=== PATIENT | male | born 1950 | race African-American/Black ===

== ENCOUNTER 2017-04-11 18:19 | Emergency (ER) | payer MEDICARE, MEDICAID, OTHER ==
[~2017-04-11 18:19] MED LIST: ISOVUE-370 76%-LOCM 1 ML ONE
[2017-04-11] MEDS ORDERED: Adacel (T-DAP) 0.5 ML VIAL ONE (20:15)
[2017-04-11 20:29] LABS: Bilirubin Negative (Negative); Blood, Urine Negative (Negative); Glucose, Urine (Dipstick) Negative (Negative); Ketone, Urine Negative (Negative); Nitrite Negative (Negative); Protein, Urine (Dipstick) Negative (Neg-Trace); Urobilinogen 0.2 mg/dL (0.2-1.0)
[2017-04-11 20:39] LABS: PTT 28.5 SEC (22.9-36.1); Prothrombin Time 13.3 SEC (12.0-14.7)
[2017-04-11 20:49] LABS: Hematocrit 37.4 % (42.0-52.0); Mean Platelet Volume 6.9 fL (7.4-10.4); Neutrophil 24 % (42-75); White Blood Cell (WBC) Count 6.9 thou/uL (4.8-10.8)
[2017-04-11 20:56] LABS: ALT (SGPT) 20 U/L (8-55); AST (SGOT) 31 U/L (5-34); Alkaline Phosphatase 67 U/L (40-150); Anion Gap 17 mmol/L (10-20); BUN (Urea Nitrogen) 9 mg/dL (8.4-25.7); Calc. Creatinine Clearance 0 mL/min (70-130); Calcium 9.4 mg/dL (7.8-10.44); Carbon Dioxide 23 mmol/L (23-31); Chloride 103 mmol/L (98-107); Estimated GFR-MDRD Greater than 90; Globulin 3.2 g/dL (2.4-3.5); Lipase 12 U/L (8-78); Protein, Total 7.1 g/dL (5.8-8.1)
--- NOTE | 2017-04-11 21:34 | RAD ---
RIGHT HAND TWO VIEWS: 04/11/17 HISTORY: Hand injury. Some minimal arthritic changes of the hand. There are no signs of fracture or dislocation. IMPRESSION: No evidence of fracture. POS: [facility]
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
== END 2017-04-12 00:53 | disposition home or self-care (01) ==
LOC: ERS 18:19
DX: S16.1XXA Strain of muscle, fascia and tendon at neck level, initial encounter (principal); S39.012A Strain of muscle, fascia and tendon of lower back, initial encounter; S60.512A Abrasion of left hand, initial encounter; S60.511A Abrasion of right hand, initial encounter; F10.129 Alcohol abuse with intoxication, unspecified; J44.9 Chronic obstructive pulmonary disease, unspecified; N40.0 Benign prostatic hyperplasia without lower urinary tract symptoms; F17.210 Nicotine dependence, cigarettes, uncomplicated; K21.9 Gastro-esophageal reflux disease without esophagitis; I10 Essential (primary) hypertension; Z23 Encounter for immunization; Y90.6 Blood alcohol level of 120-199 mg/100 ml; V03.99XA Pedestrian with other conveyance injured in collision with car, pick-up truck or van, unspecified whether traffic or nontraffic accident, initial encounter
CPT/HCPCS: 36416; 70450; 71260; 72125; 74177; 80053; 80307; 81003; 83690; 85025; 85610; 85730; 90471; 90715; 96361; 96374; J2270

== ENCOUNTER 2017-10-01 19:44 | Inpatient (IN) | payer MEDICARE, MEDICAID ==
[2017-10-01] MEDS ORDERED: Magnesium Sulfate 2 GM/100 ML BAG ONE (21:35)
[2017-10-01] MEDS ORDERED: Ondansetron PF 4 MG/2 ML Vial IVP PRN (22:24)
[2017-10-01] MEDS ORDERED: Albuterol Sulfate 2.5 mg/3 ml Neb NEB PRN (22:24)
[2017-10-01] MEDS ORDERED: HYDROcodone/Acetaminophen 5/325 mg Tablet PO PRN (22:24)
[2017-10-01] MEDS ORDERED: Acetaminophen 325 MG TAB PO PRN (22:24)
[2017-10-02] MEDS: Sodium Chloride 0.9% 1,000 ML IV SCH ×2 (00:02→08:02)
[2017-10-02 00:12] VITALS: BMI 17.4
--- NOTE | 2017-10-02 01:33 | HP ---
DATE OF ADMISSION: 10/01/2017 CHIEF COMPLAINT: Shortness of breath. HISTORY OF PRESENT ILLNESS: This is a 67-year-old white male with a known history of COPD who presen eliot today complaining of shortness of breath that started 2 days ago associated with some cough and c ongestion and productive sputum. The patient was unable to breathe today as he had been living with his granddaughter. He decided to come to the ER for further evaluation. When patient arrived in the ER, he was acutely hypoxic and was given multiple nebulizer treatments and was sounding very wheezy, so patient is being admitted for further evaluation and treatment of his COPD. He denied having any chest pain, no nausea, no vomiting, no diarrhea, no constipation. He did complain of low grade feve r at home, but otherwise is not exposed to any sick people. He had a flu shot this season. He had a flu shot this season. PAST MEDICAL HISTORY: COPD, GERD. PAST SURGICAL HISTORY: No known surgeries in the past according to him. SOCIAL HISTORY: The patient drinks almost every day, less than 5 drinks per day and denies any illic it drug use. He does smoke every day, half pack a day. ALLERGIES: LISINOPRIL causing angioedema. FAMILY HISTORY: No significant family history of coronary artery disease. HOME MEDICATIONS: 1. Albuterol inhaler. 2. Aspirin 81 mg daily. 3. Atorvastatin 10 mg p.o. daily. 4. Azithromycin. 5. Cefdinir. 6. Fluticasone salmeterol 1 inhalation q.i.d. 7. Atrovent nebulizer. 8. Pantoprazole 40 mg daily. 9. Prednisolone 20 mg daily. REVIEW OF SYSTEMS: All 12 systems are reviewed with the patient thoroughly and found to be negative at this time. The following complete review of systems was negative, unless otherwise mentioned in t he HPI or below: Constitutional: Weight loss or gain, sense of well-being, ability to conduct usual activities, exercise tolerance. Skin/Breast: Rash, itching, changes in hair growth or loss, nail c hanges, breast lumps, tenderness, swelling, nipple discharge. Eyes: Vision, double vision, tearing, blind spots, pain. ENT/Mouth: Headaches (location, time of onset, duration, precipitating factors) , vertigo, lightheadedness, injury. Vision, double vision, tearing, blind spots, pain, nose bleeding, colds, obstruction, discharge, dental difficulties, gingival bleeding, dentures, neck stiffness, valarie n, tenderness, masses in thyroid or other areas. Cardiovascular: Precordial pain, substernal distre ss, palpitations, syncope, dyspnea on exertion, orthopnea, nocturnal paroxysmal dyspnea, edema, cyano sis, hypertension, heart murmurs, varicosities, phlebitis, claudication. Respiratory: Pain, shortne ss of breath, wheezing, stridor, cough, hemoptysis, fever or night sweats. Gastrointestinal: Poor a ppetite, dysphagia, indigestion, abdominal pain, heartburn, eructation, nausea, vomiting, hematemesis , jaundice, constipation, or diarrhea, abnormal stools (trena-colored, tarry, bloody, greasy, foul sme lling), flatulence, hemorrhoids, recent changes in bowel habits. Genitourinary: Urgency, frequency, dysuria, nocturia, hematuria, polyuria, oliguria, unusual (or change in) color of urine, stones, hes itancy, change in size of stream, dribbling, acute retention or incontinence, libido, potency. Muscu loskeletal: Pain, swelling, redness or heat of muscles or joints, limitation, of motion, muscular we akness, atrophy, cramps. Neurologic/Psychiatric: Convulsions, paralyses, tremor, incoordination, pa rasthesias, difficulties with memory of speech, sensory or motor disturbances, or muscular coordinati on (ataxia, tremor), emotional problems, anxiety, depression, previous psychiatric care, unusual perc eptions, hallucinations. Allergy/Immunologic: Skin rash, anemia, bleeding tendency, polydipsia, polyuria, intolerance to heat or cold. PHYSICAL EXAMINATION: VITAL SIGNS: Blood pressure is 131/62, heart rate is 95, respirations 20, saturation 96% on 2 liters . GENERAL: The patient is moderately built, moderately nourished, does not appear to be in acute distr ess at this time. Alert, oriented x3. HEENT: Atraumatic, normocephalic. PERRLA. Extraocular movements were intact. Oral mucosa pink and moist. CARDIOVASCULAR: S1, S2 normal. No murmurs, rubs or gallops. LUNGS: Bilateral air entry was reduced with wheezing noted diffusely and accessory muscles of respir ation was noted. ABDOMEN: Soft, nontender, no guarding, no rebound tenderness. Bowel sounds normal. MUSCULOSKELETAL: No calf tenderness. No pedal edema. No joint tenderness, no joint swelling. SKIN: No cyanosis, no erythema, no rash, no pallor. NEUROLOGIC: Cranial examination II-XII intact. No focal deficits were noted. LABORATORY DATA: WBC is 14.3, hemoglobin is 13.0, hematocrit is 40.7, platelets 264. Sodium is 136, potassium 4.3, chloride is 100, BUN is 10, creatinine is 0.9. ASSESSMENT AND PLAN: 1. Acute chronic obstructive pulmonary disease exacerbation. 2. Acute hypoxic respiratory failure. 3. Hypertension. 4. Hyperlipidemia. 5. Active smoker. 6. History of alcohol abuse. PLAN: 1. Plan is to closely monitor this patient for his COPD exacerbation. We will continue the patient on albuterol nebulizer every 2 hours as needed, and DuoNebs q.4 hours. We will start the patient on m ethylprednisolone 40 mg IV q.6 hours, Solu-Medrol. We will closely monitor. We will continue the pa tient on the Mucinex for mucosal clearance 200 mg twice a day. 2. The patient has elevated white cells, most likely from the chronic steroid use. We will closely monitor to look for any evidence of infection. At this time, we will start the patient on azithromyc in 500 mg p.o. daily prophylactically for COPD infection. 3. Hypertension, well controlled. We will restart the patient's home medications. 4. DVT prophylaxis, Lovenox. I spent 70 minutes with this patient.
[2017-10-02] MEDS: Mometasone/Formoterol 120 PUFF INHALER INH SCH ×4 (07:08→19:46)
[2017-10-02 08:05] LABS: Hemoglobin 11.2 g/dL (14.0-18.0); Mean Corpuscular HGB CONC 31.9 g/dL (32.0-36.0); Mean Corpuscular Hemoglobin 30.1 pg (27.0-31.0); Mean Corpuscular Volume 94.3 fl (80.0-94.0); Mean Platelet Volume 7.1 fL (7.4-10.4); Platelet Count 245 thou/uL (130-400); RBC Distribution Width 12.3 % (11.5-14.5); Red Blood Cell (RBC) Count 3.72 mill/uL (4.70-6.10); White Blood Cell (WBC) Count 19.3 thou/uL (4.8-10.8)
[2017-10-02 08:21] LABS: Anion Gap 12 mmol/L (10-20); BUN (Urea Nitrogen) 11 mg/dL (8.4-25.7); Calc. Creatinine Clearance 61 mL/min (70-130); Calcium 9.3 mg/dL (7.8-10.44); Carbon Dioxide 24 mmol/L (23-31); Chloride 103 mmol/L (98-107); Estimated GFR-MDRD Greater than 90; Glucose 201 mg/dL (80-115); Potassium 3.9 mmol/L (3.5-5.1); Sodium 135 mmol/L (136-145)
[2017-10-02 08:24] LABS: Band 11 % (5-11); Lymphocytes 5 % (21-51); MDiff Complete? YES; Monocytes 3 % (0-10); Neutrophil 81 % (42-75)
[2017-10-02] MEDS: Enoxaparin Sodium 40 MG/0.4 ML SYRINGE SC SCH (08:47)
[2017-10-02] MEDS: Famotidine 20 MG TAB PO SCH ×2 (08:47→20:25)
[2017-10-02] MEDS: Aspirin 81 mg Enteric Coated Tablet PO SCH (08:47)
[2017-10-02] MEDS: Docusate 100 MG CAP PO SCH ×2 (08:47→20:24)
--- NOTE | 2017-10-02 14:18 | PDOC.PN ---
- Subjective Encounter Start Date: 10/02/17 Encounter Start Time: 10:30 Subjective: pt up in bed no complains - Objective Resuscitation Status: Resuscitation Status FULL:Full Resuscitation Vital Signs & Weight: Vital Signs (12 hours) Temp Pulse Pulse Pulse Resp BP Pulse Ox 10/02/17 12:01 98 F 74 16 109/63 98 10/02/17 10:35 87 20 98 10/02/17 10:22 10/02/17 09:28 89 90 10/02/17 08:00 97.5 F L 87 20 98 10/02/17 07:33 97.5 F L 81 16 133/74 100 10/02/17 07:07 79 20 99 10/02/17 04:00 97.7 F 79 18 118/66 99 Pulse Ox Pulse Ox 10/02/17 12:01 10/02/17 10:35 10/02/17 10:22 99 96 10/02/17 09:28 98 98 10/02/17 08:00 10/02/17 07:33 10/02/17 07:07 10/02/17 04:00 Weight Admit Weight 105 lb Weight 105 lb I&O: 10/01/17 10/02/17 10/03/17 06:59 06:59 06:59 Intake Total 180 Balance 180 Result Diagrams: 10/02/17 06:30 10/02/17 06:30 Phys Exam - Physical Examination HEENT: PERRLA Neck: no nodes Respiratory: wheezing present Cardiovascular: RRR, no significant murmur Gastrointestinal: soft, non-tender Musculoskeletal: no edema Dx/Plan - Plan 1)copd exab 2)leukocytosis with bands 3) smoking cessation plan: will continue iv steroids and duonebs, will check respiratory panel. will continue iv abx for now. will start pt on nicotine patch. * . Review of Systems - Review of Systems Eyes: negative: Pain, Vision Change, Conjunctivae Inflammation, Eyelid Inflammation, Redness, Other ENT: negative: Ear Pain, Ear Discharge, Nose Pain, Nose Discharge, Nose Congestion, Mouth Pain, Mouth Swelling, Throat Pain, Throat Swelling, Other Respiratory: Shortness of Breath, Sputum, Wheezing Cardiovascular: negative: chest pain, palpitations, orthopnea, paroxysmal nocturnal dyspnea, edema, light headedness, other Gastrointestinal: negative: Nausea, Vomiting, Abdominal Pain, Diarrhea, Constipation, Melena, Hematochezia, Other Genitourinary: negative: Dysuria, Frequency, Incontinence, Hematuria, Retention , Other Musculoskeletal: negative: Neck Pain, Shoulder Pain, Arm Pain, Back Pain, Hand Pain, Leg Pain, Foot Pain, Other - Medications/Allergies Allergies/Adverse Reactions: Allergies Allergy/AdvReac Type Severity Reaction Status Date / Time lisinopril Allergy Severe Swollen Verified 10/01/17 23:50 Lips Medications: Current Medications Acetaminophen (Tylenol) 650 mg PO Q4H PRN PRN Reason: Headache/Fever or Pain Hydrocodone Bitart/Acetaminophen ([place] 5/325) 1 tab PO Q4H PRN PRN Reason: Moderate Pain (4-6) Albuterol Sulfate (Ventolin) 2.5 mg NEB Q2H PRN PRN Reason: SOB &/or Wheezing Albuterol/Ipratropium (Duoneb) 3 ml NEB [id number] Last Admin: 10/02/17 10:35 Dose: 3 ml Aspirin (Ecotrin) 81 mg PO DAILY [facility] Last Admin: 10/02/17 08:47 Dose: 81 mg Atorvastatin Calcium (Lipitor) 10 mg PO HS [facility] Docusate Sodium (Colace) 100 mg PO BID [facility] Last Admin: 10/02/17 08:47 Dose: 100 mg Enoxaparin Sodium (Lovenox) 40 mg SC 0900 [facility] Last Admin: 10/02/17 08:47 Dose: 40 mg Famotidine (Pepcid) 20 mg PO BID [facility] Last Admin: 10/02/17 08:47 Dose: 20 mg Levofloxacin 500 mg/ Device 100 mls @ 100 mls/hr IVPB Q24HR [facility] Methylprednisolone Sodium Succinate (Solu-Medrol) 40 mg IVP Q6HR [facility] Last Admin: 10/02/17 12:17 Dose: 40 mg Mometasone Furoate/Formoterol Fumar (Dulera 100 Mcg/5 Mcg Inhaler) 1 puff INH QID-RT [facility] Last Admin: 10/02/17 10:37 Dose: Not Given Nicotine (Nicoderm Patch) 21 mg TD DAILY [facility] Ondansetron HCl (Zofran) 4 mg IVP Q6H PRN PRN Reason: Nausea/Vomiting
[2017-10-02] MEDS: Atorvastatin Calcium 10 MG TAB PO SCH (20:25)
[2017-10-03 04:38] LABS: Mean Corpuscular HGB CONC 32.9 g/dL (32.0-36.0); Mean Corpuscular Hemoglobin 30.9 pg (27.0-31.0); Mean Corpuscular Volume 94.1 fl (80.0-94.0); Platelet Count 224 thou/uL (130-400); RBC Distribution Width 12.3 % (11.5-14.5); Red Blood Cell (RBC) Count 3.56 mill/uL (4.70-6.10); White Blood Cell (WBC) Count 20.1 thou/uL (4.8-10.8)
[2017-10-03 05:40] LABS: Band 3 % (5-11); Lymphocytes 4 % (21-51); MDiff Complete? YES; Monocytes 6 % (0-10); Neutrophil 87 % (42-75)
[2017-10-03 05:44] LABS: Anion Gap 8 mmol/L (10-20); BUN (Urea Nitrogen) 15 mg/dL (8.4-25.7); Calc. Creatinine Clearance 64 mL/min (70-130); Calcium 9.4 mg/dL (7.8-10.44); Carbon Dioxide 27 mmol/L (23-31); Chloride 105 mmol/L (98-107); Estimated GFR-MDRD Greater than 90; Glucose 178 mg/dL (80-115); Potassium 4.1 mmol/L (3.5-5.1); Sodium 136 mmol/L (136-145)
[2017-10-03] MEDS: Mometasone/Formoterol 120 PUFF INHALER INH SCH ×4 (07:12→18:09)
[2017-10-03] MEDS ORDERED: Dextrose 5% in Water 1,000 ML IV PRN (08:44)
[2017-10-03] MEDS ORDERED: Dextrose 50% Abboject 50 ML SYRINGE SLOW IVP PRN (08:44)
[2017-10-03] MEDS ORDERED: HumaLOG 300 UNITS/3 ML VIAL SC PRN (08:44)
[2017-10-03] MEDS: Enoxaparin Sodium 40 MG/0.4 ML SYRINGE SC SCH (09:32)
[2017-10-03] MEDS: Famotidine 20 MG TAB PO SCH ×2 (09:33→22:29)
[2017-10-03] MEDS: Nicotine 21 MG PATCH TD SCH (09:33)
[2017-10-03] MEDS: Docusate 100 MG CAP PO SCH ×2 (09:33→22:29)
[2017-10-03] MEDS: Aspirin 81 mg Enteric Coated Tablet PO SCH (09:33)
[2017-10-03] MEDS ORDERED: guaiFENesin 200 MG TAB PO SCH (11:45)
--- NOTE | 2017-10-03 13:29 | PDOC.PN ---
- Subjective Encounter Start Date: 10/03/17 Encounter Start Time: 11:00 Subjective: pt up in bed feels better - Objective Resuscitation Status: Resuscitation Status FULL:Full Resuscitation Vital Signs & Weight: Vital Signs (12 hours) Temp Pulse Resp BP Pulse Ox 10/03/17 11:54 90 16 102/55 L 96 10/03/17 10:56 75 16 100 10/03/17 08:00 97.7 F 74 16 98 10/03/17 07:29 97.7 F 74 16 109/60 98 10/03/17 07:14 99 10/03/17 07:13 74 16 99 10/03/17 07:12 77 16 99 10/03/17 02:34 92 16 Weight Admit Weight 105 lb Weight 105 lb I&O: 10/02/17 10/03/17 10/04/17 06:59 06:59 06:59 Intake Total 1160 240 Output Total 300 Balance 860 240 Result Diagrams: 10/03/17 04:06 10/03/17 04:06 Phys Exam - Physical Examination Neck: no nodes, no JVD, supple, full ROM Respiratory: wheezing present rhonchi present Cardiovascular: RRR, no significant murmur, no rub, gallop, irregular Gastrointestinal: soft, non-tender, no distention, positive bowel sounds Musculoskeletal: no edema Dx/Plan - Plan 1)copd exab 2)leukocytosis with bands 3) smoking cessation plan: will continue iv steroids and duonebs, will check respiratory panel. will continue iv abx for now. will start pt on nicotine patch. Decreased his steroids to bid. viral panel negative. * . Review of Systems - Review of Systems Eyes: negative: Pain, Vision Change, Conjunctivae Inflammation, Eyelid Inflammation, Redness, Other ENT: negative: Ear Pain, Ear Discharge, Nose Pain, Nose Discharge, Nose Congestion, Mouth Pain, Mouth Swelling, Throat Pain, Throat Swelling, Other Respiratory: SOB with Excertion Cardiovascular: negative: chest pain, palpitations, orthopnea, paroxysmal nocturnal dyspnea, edema, light headedness, other Gastrointestinal: negative: Nausea, Vomiting, Abdominal Pain, Diarrhea, Constipation, Melena, Hematochezia, Other Genitourinary: negative: Dysuria, Frequency, Incontinence, Hematuria, Retention , Other Musculoskeletal: negative: Neck Pain, Shoulder Pain, Arm Pain, Back Pain, Hand Pain, Leg Pain, Foot Pain, Other - Medications/Allergies Allergies/Adverse Reactions: Allergies Allergy/AdvReac Type Severity Reaction Status Date / Time lisinopril Allergy Severe Swollen Verified 10/01/17 23:50 Lips Medications: Current Medications Acetaminophen (Tylenol) 650 mg PO Q4H PRN PRN Reason: Headache/Fever or Pain Hydrocodone Bitart/Acetaminophen ([place] 5/325) 1 tab PO Q4H PRN PRN Reason: Moderate Pain (4-6) Albuterol Sulfate (Ventolin) 2.5 mg NEB Q2H PRN PRN Reason: SOB &/or Wheezing Albuterol/Ipratropium (Duoneb) 3 ml NEB [id number] Last Admin: 10/03/17 10:56 Dose: 3 ml Aspirin (Ecotrin) 81 mg PO DAILY [facility] Last Admin: 10/03/17 09:33 Dose: 81 mg Atorvastatin Calcium (Lipitor) 10 mg PO HS [facility] Last Admin: 10/02/17 20:25 Dose: 10 mg Dextrose/Water (Dextrose 50%) 25 gm SLOW IVP PRN PRN PRN Reason: Hypoglycemia Docusate Sodium (Colace) 100 mg PO BID [facility] Last Admin: 10/03/17 09:33 Dose: 100 mg Enoxaparin Sodium (Lovenox) 40 mg SC 0900 [facility] Last Admin: 10/03/17 09:32 Dose: 40 mg Famotidine (Pepcid) 20 mg PO BID [facility] Last Admin: 10/03/17 09:33 Dose: 20 mg Glucagon (Glucagon) 1 mg IM PRN PRN PRN Reason: Hypoglycemia Guaifenesin (Organ-I Nr) 200 mg PO BID [facility] Guaifenesin (Organ-I Nr) 200 mg PO NOW [facility] Stop: 10/03/17 13:45 Levofloxacin 500 mg/ Device 100 mls @ 100 mls/hr IVPB Q24HR [facility] Last Admin: 10/02/17 15:15 Dose: 100 mls Dextrose/Water (D5w) 1,000 mls @ 0 mls/hr IV .Q0M PRN; As Directed PRN Reason: Hypoglycemia Insulin Human Lispro (Humalog) 0 units SC .MILD SLIDING SCALE PRN PRN Reason: Mild Correctional Scale Methylprednisolone Sodium Succinate (Solu-Medrol) 40 mg IVP BID [facility] Last Admin: 10/03/17 09:36 Dose: 40 mg Mometasone Furoate/Formoterol Fumar (Dulera 100 Mcg/5 Mcg Inhaler) 1 puff INH QID-RT [facility] Last Admin: 10/03/17 13:27 Dose: Not Given Nicotine (Nicoderm Patch) 21 mg TD DAILY [facility] Last Admin: 10/03/17 09:33 Dose: 21 mg Ondansetron HCl (Zofran) 4 mg IVP Q6H PRN PRN Reason: Nausea/Vomiting
[2017-10-03] MEDS: Atorvastatin Calcium 10 MG TAB PO SCH (22:29)
[2017-10-03] MEDS: guaiFENesin 200 MG TAB PO SCH (22:30)
[2017-10-04 05:11] LABS: Anion Gap 12 mmol/L (10-20); BUN (Urea Nitrogen) 14 mg/dL (8.4-25.7); Calc. Creatinine Clearance 62 mL/min (70-130); Calcium 9.4 mg/dL (7.8-10.44); Carbon Dioxide 25 mmol/L (23-31); Chloride 105 mmol/L (98-107); Estimated GFR-MDRD Greater than 90; Glucose 127 mg/dL (80-115); Potassium 4.1 mmol/L (3.5-5.1); Sodium 138 mmol/L (136-145)
[2017-10-04 06:05] LABS: Band 5 % (5-11); Hemoglobin 10.6 g/dL (14.0-18.0); Lymphocytes 9 % (21-51); MDiff Complete? YES; Mean Corpuscular HGB CONC 33.7 g/dL (32.0-36.0); Mean Corpuscular Hemoglobin 31.7 pg (27.0-31.0); Mean Platelet Volume 7.1 fL (7.4-10.4); Monocytes 4 % (0-10); Neutrophil 82 % (42-75); Platelet Count 236 thou/uL (130-400); RBC Distribution Width 12.3 % (11.5-14.5); Red Blood Cell (RBC) Count 3.34 mill/uL (4.70-6.10); White Blood Cell (WBC) Count 15.5 thou/uL (4.8-10.8)
[2017-10-04] MEDS: Mometasone/Formoterol 120 PUFF INHALER INH SCH ×3 (07:19→18:54)
[2017-10-04] MEDS: Aspirin 81 mg Enteric Coated Tablet PO SCH (07:45)
[2017-10-04] MEDS: Famotidine 20 MG TAB PO SCH ×2 (07:45→20:39)
[2017-10-04] MEDS: Docusate 100 MG CAP PO SCH ×2 (07:46→20:39)
[2017-10-04] MEDS: Enoxaparin Sodium 40 MG/0.4 ML SYRINGE SC SCH (07:46)
[2017-10-04] MEDS: Nicotine 21 MG PATCH TD SCH (07:47)
[2017-10-04] MEDS: guaiFENesin 200 MG TAB PO SCH ×2 (10:54→20:39)
--- NOTE | 2017-10-04 18:55 | PDOC.PN ---
- Subjective Encounter Start Date: 10/04/17 Encounter Start Time: 09:00 Subjective: pt up in bed feels well today - Objective Resuscitation Status: Resuscitation Status FULL:Full Resuscitation Vital Signs & Weight: Vital Signs (12 hours) Temp Pulse Resp BP Pulse Ox 10/04/17 18:25 73 12 100 10/04/17 15:55 71 16 10/04/17 11:00 69 16 100 10/04/17 09:48 98.0 F 70 20 130/68 100 10/04/17 08:00 98.0 F 73 16 100 10/04/17 07:20 73 16 99 Weight Admit Weight 105 lb Weight 105 lb I&O: 10/03/17 10/04/17 10/05/17 06:59 06:59 06:59 Intake Total 1160 600 Output Total 300 200 Balance 860 600 -200 Result Diagrams: 10/04/17 04:02 10/04/17 04:02 Additional Labs: Accuchecks 10/04/17 10/04/17 10/03/17 16:29 11:14 19:39 POC Glucose 155 H 146 H 175 H Phys Exam - Physical Examination HEENT: PERRLA, moist MMs, sclera anicteric, TM's clear, oral pharynx no lesions , 2+ tonsils Neck: no nodes, no JVD, supple, full ROM Respiratory: wheezing present mild rhonchi Cardiovascular: RRR, no significant murmur, no rub, gallop, irregular Gastrointestinal: soft, non-tender, no distention, positive bowel sounds Musculoskeletal: no edema, pulses present, edema present Dx/Plan - Plan 1)copd exab 2)leukocytosis with bands 3) smoking cessation plan: will continue iv steroids and duonebs, will check respiratory panel. will continue iv abx for now. will start pt on nicotine patch. Decreased his steroids to bid. viral panel negative. 10/04 pt feels well today, will do walk test in am. Possible discharge in am. Leukocytes improving * . Review of Systems - Review of Systems Eyes: negative: Pain, Vision Change, Conjunctivae Inflammation, Eyelid Inflammation, Redness, Other ENT: negative: Ear Pain, Ear Discharge, Nose Pain, Nose Discharge, Nose Congestion, Mouth Pain, Mouth Swelling, Throat Pain, Throat Swelling, Other Respiratory: Shortness of Breath, Wheezing Cardiovascular: negative: chest pain, palpitations, orthopnea, paroxysmal nocturnal dyspnea, edema, light headedness, other Gastrointestinal: negative: Nausea, Vomiting, Abdominal Pain, Diarrhea, Constipation, Melena, Hematochezia, Other - Medications/Allergies Allergies/Adverse Reactions: Allergies Allergy/AdvReac Type Severity Reaction Status Date / Time lisinopril Allergy Severe Swollen Verified 10/01/17 23:50 Lips Medications: Current Medications Acetaminophen (Tylenol) 650 mg PO Q4H PRN PRN Reason: Headache/Fever or Pain Hydrocodone Bitart/Acetaminophen ([place] 5/325) 1 tab PO Q4H PRN PRN Reason: Moderate Pain (4-6) Albuterol Sulfate (Ventolin) 2.5 mg NEB Q2H PRN PRN Reason: SOB &/or Wheezing Albuterol/Ipratropium (Duoneb) 3 ml NEB [id number] [facility] Last Admin: 10/04/17 18:25 Dose: 3 ml Aspirin (Ecotrin) 81 mg PO DAILY [facility] Last Admin: 10/04/17 07:45 Dose: 81 mg Atorvastatin Calcium (Lipitor) 10 mg PO HS [facility] Last Admin: 10/03/17 22:29 Dose: 10 mg Dextrose/Water (Dextrose 50%) 25 gm SLOW IVP PRN PRN PRN Reason: Hypoglycemia Docusate Sodium (Colace) 100 mg PO BID [facility] Last Admin: 10/04/17 07:46 Dose: 100 mg Enoxaparin Sodium (Lovenox) 40 mg SC 0900 [facility] Last Admin: 10/04/17 07:46 Dose: 40 mg Famotidine (Pepcid) 20 mg PO BID [facility] Last Admin: 10/04/17 07:45 Dose: 20 mg Glucagon (Glucagon) 1 mg IM PRN PRN PRN Reason: Hypoglycemia Guaifenesin (Organ-I Nr) 200 mg PO BID [facility] Last Admin: 10/04/17 10:54 Dose: 200 mg Levofloxacin 500 mg/ Device 100 mls @ 100 mls/hr IVPB Q24HR [facility] Last Admin: 10/04/17 14:42 Dose: 100 mls Dextrose/Water (D5w) 1,000 mls @ 0 mls/hr IV .Q0M PRN; As Directed PRN Reason: Hypoglycemia Insulin Human Lispro (Humalog) 0 units SC .MILD SLIDING SCALE PRN PRN Reason: Mild Correctional Scale Methylprednisolone Sodium Succinate (Solu-Medrol) 40 mg IVP BID [facility] Last Admin: 10/04/17 07:47 Dose: 40 mg Mometasone Furoate/Formoterol Fumar (Dulera 100 Mcg/5 Mcg Inhaler) 1 puff INH BID-RT [facility] Last Admin: 10/04/17 18:54 Dose: 1 puff Nicotine (Nicoderm Patch) 21 mg TD DAILY [facility] Last Admin: 10/04/17 07:47 Dose: 21 mg Ondansetron HCl (Zofran) 4 mg IVP Q6H PRN PRN Reason: Nausea/Vomiting
[2017-10-04] MEDS: Atorvastatin Calcium 10 MG TAB PO SCH (20:39)
[2017-10-05 07:12] VITALS: BP 146/76; TEMP 97.8
[2017-10-05] MEDS: Mometasone/Formoterol 120 PUFF INHALER INH SCH (07:24)
[2017-10-05] MEDS: Nicotine 21 MG PATCH TD SCH (07:34)
[2017-10-05] MEDS: Docusate 100 MG CAP PO SCH (07:35)
[2017-10-05] MEDS: Aspirin 81 mg Enteric Coated Tablet PO SCH (07:35)
[2017-10-05] MEDS: Famotidine 20 MG TAB PO SCH (07:35)
[2017-10-05] MEDS: guaiFENesin 200 MG TAB PO SCH (07:36)
[2017-10-05] MEDS: Enoxaparin Sodium 40 MG/0.4 ML SYRINGE SC SCH (07:36)
--- NOTE | 2017-10-05 16:39 | DIS ---
DATE OF ADMISSION: 10/02/2017 DATE OF DISCHARGE: 10/05/2017 CHIEF COMPLAINT: Initially with shortness of breath. DISCHARGE DIAGNOSES: Including, 1. Chronic obstructive pulmonary disease exacerbation. 2. Leukocytosis with bandemia. 3. Acute hypoxic respiratory failure. 4. Smoking. HOSPITAL COURSE: The patient initially presented to the hospital with complaints of shortness of praveen ath. The patient was found to have extensive amount of wheezing bilaterally. Chest x-ray did not in dicate any acute infectious process. The patient initially started on steroids and also was given Le vaquin prophylactically. The patient continued to improve throughout the hospital stay. The patient 's steroids were tapered down. He did have a 6-minute walk test which did not require patient to hav e oxygen at home. Patient will be discharged home. Follow up with PCP as outpatient. DISCHARGE MEDICATIONS: As the followin. Proscar 5 mg p.o. daily. 2. Flomax 0.4 mg p.o. daily. 3. Norvasc 5 mg p.o. daily. 4. Prednisone. 5. Medrol Dosepak. 6. Dulera 1 puff b.i.d. 7. Levaquin 500 mg p.o. daily for 3 days. 8. Ipratropium and albuterol DuoNebs 3 mL q.4 hours. 9. Pepcid 20 mg p.o. b.i.d. PHYSICAL EXAMINATION: VITAL SIGNS: Temperature 97.8, 64, 16, 90% on room air, blood pressure is 146/76. GENERAL: He is awake, alert, oriented x3. CARDIOVASCULAR SYSTEM: S1, S2 present. No murmurs, rubs or gallops. RESPIRATORY: Mild expiratory wheezing still audible; however, improved from prior. ABDOMEN: Soft, nontender. Bowel sounds are present x2. EXTREMITIES: No pitting edema.
--- NOTE | 2017-10-06 20:54 | DIS ---
DATE OF ADMISSION: 10/02/2017 DATE OF DISCHARGE: 10/05/2017 DISCHARGE DIAGNOSES: 1. Chronic obstructive pulmonary disease exacerbation. 2. Leukocytosis. 3. Smoking. 4. Acute hypoxic respiratory failure. HOSPITAL COURSE: The patient is a very pleasant 67-year-old male, who presented to the hospital with complaints of shortness of breath. The patient initially was found to have significant rhonchi and wheezing all over his lungs. Chest x-ray did not show any acute infiltrates. The patient also had r espiratory viral panel checked, which was negative for any viral illnesses. The patient unfortunatel y continues to smoke a pack daily. The patient at this time was treated with oxygen, steroids, and p rophylactic antibiotics. The patient's condition continued to improve throughout the hospital stay. The patient was walked and did not require any oxygen. The patient was discharged home. He will fo llow up with his PCP as outpatient. PHYSICAL EXAMINATION: VITAL SIGNS: Temperature of 97.8, pulse 64, respirations 16, saturation 99% on room air, blood press ure of 146/76. GENERAL: Awake, alert, oriented x3, does not appear in distress. CVS: S1, S2 present. No murmurs, rubs, or gallops. LUNGS: Mild rhonchi all over lungs and mild wheezing. EXTREMITIES: No edema. DISCHARGE MEDICATIONS: The patient's medications are the following: Proscar 5 mg p.o. daily, Flomax 0.4 mg daily, Norvasc 5 mg p.o. daily, Medrol Dosepak, Dulera 1 inhalation b.i.d., Levaquin 500 mg f or 3 days, DuoNeb 3 mL q.4 hour schedule, and Pepcid 20 mg p.o. b.i.d.
== END 2017-10-05 14:44 | disposition home or self-care (01) | DRG 189 ==
LOC: ERS 19:44 → T4-A 20:36
PROVIDERS: ADMIT Emergency Medicine; ATTEND Emergency Medicine
DX: J96.01 Acute respiratory failure with hypoxia (principal); J44.1 Chronic obstructive pulmonary disease with (acute) exacerbation; I10 Essential (primary) hypertension; K21.9 Gastro-esophageal reflux disease without esophagitis; N40.0 Benign prostatic hyperplasia without lower urinary tract symptoms; F17.210 Nicotine dependence, cigarettes, uncomplicated
CPT/HCPCS: 36415; 36416; 80048; 83735; 83880; 85025; 87633; 96374; G8978-GP-CI; G8979-GP-CI; G8980-GP-CI; G8987-GO-CI; G8988-GO-CI; G8989-GO-CI; J1650; J1956; J2920; J3475; J7620

== ENCOUNTER 2018-01-10 23:04 | Observation (INO) | payer MEDICARE, MEDICAID ==
[2018-01-11 00:04] LABS: Troponin I 0.032 ng/mL (< 0.028)
[2018-01-11] MEDS ORDERED: Sodium Chloride 0.45% 1,000 ML IV SCH (02:00)
[2018-01-11 03:04] LABS: Troponin I Less than 0.010 ng/mL (< 0.028)
[2018-01-11 03:32] VITALS: BMI 16.2
[2018-01-11 06:16] LABS: Troponin I Less than 0.010 ng/mL (< 0.028)
[2018-01-11] MEDS ORDERED: Loratadine 10 MG TAB PO PRN (07:22)
[2018-01-11] MEDS ORDERED: Chloraseptic Spray 180 ml Bottle PO PRN (07:22)
[2018-01-11] MEDS ORDERED: Mag-Al 1200 mg/1200 mg/30 ML UDCUP PO PRN (07:22)
[2018-01-11] MEDS ORDERED: Zolpidem Tartrate 5 MG TAB PO PRN (07:22)
[2018-01-11] MEDS ORDERED: cloNIDine 0.1 MG TAB PO PRN (07:22)
[2018-01-11] MEDS ORDERED: Ondansetron ODT 4 MG TAB PO PRN (07:22)
[2018-01-11] MEDS ORDERED: Artificial Tears 18 DROP/0.9 ML EA EYE PRN (07:22)
[2018-01-11] MEDS ORDERED: Senokot 8.6 MG TAB PO PRN (07:22)
[2018-01-11] MEDS ORDERED: HYDROcodone/Acetaminophen 5/325 mg Tablet PO PRN (07:22)
[2018-01-11] MEDS ORDERED: Loperamide HCl 2 MG CAP PO PRN (07:22)
[2018-01-11] MEDS ORDERED: hydrALAZINE 20 MG/ML VIAL SLOW IVP PRN (07:22)
[2018-01-11] MEDS ORDERED: Ondansetron HCl/PF 4 MG/2 ML Vial IVP PRN (07:22)
[2018-01-11] MEDS ORDERED: Milk Of Magnesia 30 ML UDCUP PO PRN (07:22)
[2018-01-11] MEDS ORDERED: Eucerin (Mineral Oil/Petrolatum,White) 30 gm Jar TOP PRN (07:22)
[2018-01-11] MEDS ORDERED: Acetaminophen 325 MG TAB PO PRN (07:22)
[2018-01-11] MEDS ORDERED: Diabetic Tussin 200 MG/10 ML UDCUP PO PRN (07:22)
[2018-01-11] MEDS ORDERED: Sodium Chloride 0.65% Nasal 44 ML BOT EA NARE PRN (07:22)
[2018-01-11] MEDS: Tamsulosin HCl 0.4 MG CAP PO SCH (07:59)
[2018-01-11] MEDS: Finasteride 5 MG TAB PO SCH (07:59)
[2018-01-11] MEDS: Famotidine 20 MG TAB PO SCH ×2 (07:59→21:58)
[2018-01-11] MEDS: Amlodipine 5 MG TAB PO SCH (07:59)
[2018-01-11] MEDS: guaiFENesin ER 600 MG TAB PO SCH ×2 (08:00→21:58)
[2018-01-11] MEDS ORDERED: predniSONE 20 MG TAB PO SCH (08:00)
--- NOTE | 2018-01-11 12:12 | HP ---
PRIMARY CARE PHYSICIAN: Brayan Dykes M.D. DATE OF ADMISSION: 01/11/2018 REASON FOR ADMISSION: Transfer from [facility] for COPD exacerbation. HISTORY OF PRESENT ILLNESS: A 67-year-old -La[place] male, who presented to the emergency room at [facility] with the complaint of increasing shortness of breath. Before this visit, the patient had 2 more visits this month on 12/27/2017 and 01/02/2018 for increasing shortness of breath. He was hav ing cough productive of sputum. Both time he was given prednisone without any significant improvemen t. Yesterday night, he went to [facility] again for increasing shortness of breath. He w as using his nebulizer machine and medicine at home without any significant relief. Even though he i s feeling shortness of breath, he continued to smoke. At [facility], he was tachypneic, l ow grade fever, and he was appeared mild respiratory distress. Over there, he was given Solu-Medrol 125 mg and albuterol nebulization and subsequently he was transferred to our emergency room for furth er evaluation. In our Emergency Room, he was given Levaquin 750 mg, aspirin and DuoNeb therapy and dafne best was admitted as observation to the observation floor. This morning when I saw around 7, at that ti me, patient was on room air, he was able to talk in full sentences, he was feeling much better. He d id not have any further fever. He was not having any accessory muscles of respiration in use. He de nies any hemoptysis. He denies any pleurisy. He denies any UTI symptoms. He denies any constipatio n, diarrhea. He denies any abdominal pain. He still smokes cigarette even though he is experiencing shortness of breath. REVIEW OF SYSTEMS: The following complete review of systems was negative, unless otherwise mentioned in the HPI or below: Constitutional: Weight loss or gain, ability to conduct usual activities. Skin: Rash, itching. Eyes: Double vision, pain. ENT/Mouth: Nose bleeding, neck stiffness, pain, tenderness. Cardiovascular: Palpitations, dyspnea on exertion, orthopnea. Respiratory: Shortness of breath, wheezing, cough, hemoptysis, fever or night sweats. Gastrointestinal: Poor appetite, abdominal pain, heartburn, nausea, vomiting, constipation, or diarr hea. Genitourinary: Urgency, frequency, dysuria, nocturia. Musculoskeletal: Pain, swelling. Neurologic/Psychiatric: Anxiety, depression. Allergy/Immunologic: Skin rash, bleeding tendency. Please see my HPI for pertinent positive and negative. All other review of system reviewed and negat mickey except as mentioned in the HPI. PAST MEDICAL HISTORY: COPD, protein calorie malnutrition, moderate gastroesophageal reflux disease, benign enlargement of prostate, tobacco abuse disorder, and hypertension. PAST SURGICAL HISTORY: Patient denies any previous surgical history. SOCIAL HISTORY: The patient drinks alcohol socially. He smokes half pack per day. He denies any ot her illicit drug abuse. He lives with his daughter. FAMILY HISTORY: No significant family history of coronary artery disease, stroke, or cancer. ALLERGIES: LISINOPRIL causing angioedema. CURRENT HOME MEDICATIONS: Flomax 0.4 mg p.o. daily, amlodipine 5 mg p.o. daily, Proscar 5 mg p.o. da scott, tramadol 50 mg q.8 hourly p.r.n., and prednisone recently prescribed 60 mg daily. EMERGENCY ROOM COURSE: Patient was given methylprednisolone 125 mg, albuterol nebulization, Levaquin 750 mg, DuoNeb therapy and aspirin in both the emergency room before admission. PHYSICAL EXAMINATION: VITAL SIGNS: On arrival, blood pressure 106/67, pulse 94, respiratory rate 22, temperature 99.7, sat uration 100% on 2 liter oxygen, weight 47.1 kilograms. GENERAL: Patient is currently alert, awake, on room air. No obvious acute distress, emaciated, and cachectic. HEENT: Head: Normocephalic, atraumatic. Eyes: Pupils round, reactive to light. Extraocular muscl e intact. ENT: Oropharynx within normal limits. Moist mucous membranes. No oral lesion, no pharyn geal erythema, no exudate. NECK: Supple, no JVD, no thyromegaly, no carotid bruit, no jugular venous distention. LUNGS: Air entry reduced on both sides. No accessory muscles of respiration in use. No obvious rho nchi or rales. CARDIAC: S1 and S2 regular. No murmur, no gallop, no rub. ABDOMEN: Soft, bowel sounds present, nontender, nondistended. No organomegaly, no mass, no suprapub ic tenderness. BACK: Unremarkable, no CVA tenderness. EXTREMITIES: Upper extremity passive movement of all joints are normal. Lower extremities: No nate a. Good peripheral pulsation. SKIN: No skin rash. HEMATOLOGICAL: No lymphadenopathy. PSYCHIATRIC: Normal affect. SIGNIFICANT LABORATORY DATA: CBC: WBC 10.8, hemoglobin 11.1, platelet 224 with 5 bands. ABG: pH 7 .46, CO2 of 44.0, O2 of 57.0, bicarbonate 30.8, saturation 88%. BMP shows sodium 139, potassium 3.6, chloride 102, carbon dioxide 29, BUN 11, creatinine 0.83. Lactic acid 0.9, calcium 9.3. LFT: AST 14, ALT 10, alkaline phosphatase 63, albumin 3.5. First troponin negative, second troponin indetermi nant, and the subsequent 2 troponin negative. A chest x-ray consistent with emphysematous changes. ASSESSMENT: 1. Chronic obstructive pulmonary disease exacerbation, mild to moderate, improving. 2. Mild hypoxia on admission appears to be resolved. 3. Elevated troponin, likely due to demand ischemia. 4. Ongoing tobacco abuse disorder. 5. Anemia normocytic, normochromic. 6. Chronic hypertension. 7. Gastroesophageal reflux disease. 8. Benign enlargement of prostate. 9. Protein calorie malnutrition, moderate. PLAN: 1. Observation to telemetry floor. 2. Serial cardiac enzymes negative x3. Only one troponin was slightly abnormal and he does not have any chest pain, does not have any EKG changes. No need of further investigation, this is likely due to demand ischemia. 3. We will continue Solu-Medrol 40 mg IV q.6 hourly, empiric antibiotic therapy, Levaquin 500 mg maria elena ly, DuoNeb q.4 hourly, and Dulera two puff inhalation b.i.d. 4. We will reevaluate him tomorrow. 5. We will resume selected home medication including amlodipine 5 mg p.o. daily, Pepcid 20 mg p.o. b .i.d., Proscar 5 mg p.o. daily, Flomax 0.4 mg p.o. daily. 6. Smoking cessation counseling given. Healthy lifestyle measures discussed with the patient. We w ill also provide nutritional supplement with Ensure. 7. DVT prophylaxis not needed because we are expecting discharge in 24 hours. 8. Gastrointestinal prophylaxis. Patient is already on Pepcid therapy. 9. Code status: The patient is FULL CODE. The patient's daughter is surrogate decision maker. 10. Disposition plan based on clinical course, likely tomorrow within 24 hours. Plan of care discus sed with the patient in detail.
[2018-01-11] MEDS: Mometasone/Formoterol 120 PUFF INHALER INH SCH (18:35)
[2018-01-12 05:23] LABS: #Lymphocytes 0.5 thou/uL (1.20-3.40); #Monocytes 0.4 thou/uL (0.11-0.59); %Eosinophils 0.1 % (0.0-10.0); %Lymphocytes 3.6 % (21.0-51.0); %Monocytes 2.9 % (0.0-10.0); %Neutrophils 93.4 % (42.0-75.0); Mean Corpuscular HGB CONC 32.7 g/dL (32.0-36.0); Mean Corpuscular Hemoglobin 30.4 pg (27.0-31.0); Mean Platelet Volume 7.2 fL (7.4-10.4); Platelet Count 203 thou/uL (130-400); RBC Distribution Width 13.7 % (11.5-14.5); Red Blood Cell (RBC) Count 3.61 mill/uL (4.70-6.10)
[2018-01-12 05:53] LABS: ALT (SGPT) 7 U/L (8-55); AST (SGOT) 11 U/L (5-34); Albumin 3.5 g/dL (3.4-4.8); Alkaline Phosphatase 72 U/L (40-150); Anion Gap 12 mmol/L (10-20); BUN (Urea Nitrogen) 17 mg/dL (8.4-25.7); Bilirubin, Total 0.7 mg/dL (0.2-1.2); Calc. Creatinine Clearance 57 mL/min (70-130); Calcium 9.4 mg/dL (7.8-10.44); Carbon Dioxide 27 mmol/L (23-31); Chloride 102 mmol/L (98-107); Estimated GFR-MDRD Greater than 90; Globulin 2.6 g/dL (2.4-3.5); Glucose 161 mg/dL (80-115); Potassium 4.1 mmol/L (3.5-5.1); Protein, Total 6.1 g/dL (5.8-8.1); Sodium 137 mmol/L (136-145)
[2018-01-12] MEDS: Mometasone/Formoterol 120 PUFF INHALER INH SCH (06:58)
[2018-01-12 08:01] VITALS: BP 127/59; TEMP 97.7
[2018-01-12] MEDS: Tamsulosin HCl 0.4 MG CAP PO SCH (08:29)
[2018-01-12] MEDS: Finasteride 5 MG TAB PO SCH (08:29)
[2018-01-12] MEDS: Amlodipine 5 MG TAB PO SCH (08:29)
[2018-01-12] MEDS: guaiFENesin ER 600 MG TAB PO SCH (08:29)
[2018-01-12] MEDS: Famotidine 20 MG TAB PO SCH (08:29)
--- NOTE | 2018-01-12 10:58 | PDOC.PN ---
- Subjective Encounter Start Date: 01/12/18 Encounter Start Time: 08:00 Patient seen and examined. No new complaints. No overnight events - Objective Resuscitation Status: Resuscitation Status FULL:Full Resuscitation MAR Reviewed: Yes Vital Signs & Weight: Vital Signs (12 hours) Temp Pulse Resp BP BP Pulse Ox 01/12/18 08:29 70 01/12/18 08:00 97.7 F 70 15 127/59 L 95 01/12/18 07:56 98.3 F 76 20 01/12/18 06:57 76 20 96 01/12/18 04:15 72 18 125/57 L 97 01/12/18 02:23 80 12 95 01/11/18 23:36 98.3 F 82 15 117/58 L 98 Weight Weight 100 lb 11.2 oz I&O: 01/11/18 01/12/18 01/13/18 06:59 06:59 06:59 Intake Total 185 940 Output Total 425 400 200 Balance -240 540 -200 Result Diagrams: 01/12/18 04:24 01/12/18 04:24 EKG Reviewed by me: Yes (nsr) Phys Exam - Physical Examination Constitutional: NAD HEENT: PERRLA, moist MMs, sclera anicteric, oral pharynx no lesions Neck: no JVD, supple Respiratory: no wheezing, no rales, no rhonchi Cardiovascular: RRR, no significant murmur, no rub Gastrointestinal: soft, non-tender, no distention, positive bowel sounds Musculoskeletal: no edema, pulses present Neurological: non-focal, normal sensation, moves all 4 limbs Lymphatic: no nodes Psychiatric: normal affect, A&O x 3 Skin: no rash, normal turgor Dx/Plan (1) Acute exacerbation of chronic obstructive pulmonary disease (COPD) Code(s): J44.1 - CHRONIC OBSTRUCTIVE PULMONARY DISEASE W (ACUTE) EXACERBATION Status: Acute Comment: (2) Acute respiratory failure with hypoxemia Code(s): J96.01 - ACUTE RESPIRATORY FAILURE WITH HYPOXIA Status: Resolved Comment: (3) Demand ischemia of myocardium Code(s): I24.8 - OTHER FORMS OF ACUTE ISCHEMIC HEART DISEASE Status: Resolved (4) Non-compliance Code(s): Z91.19 - PATIENT'S NONCOMPLIANCE W OTH MEDICAL TREATMENT AND REGIMEN Status: Chronic (5) Protein-calorie malnutrition, moderate Code(s): E44.0 - MODERATE PROTEIN-CALORIE MALNUTRITION Status: Chronic (6) Tobacco abuse disorder Code(s): Z72.0 - TOBACCO USE Status: Chronic - Plan cont current plan of care, continue antibiotics, respiratory therapy * medication reviewed as below * symptomatic treatment * stable for discharge * see discharge radha. Review of Systems - Review of Systems Eyes: negative: Pain, Vision Change, Conjunctivae Inflammation, Eyelid Inflammation, Redness, Other ENT: negative: Ear Pain, Ear Discharge, Nose Pain, Nose Discharge, Nose Congestion, Mouth Pain, Mouth Swelling, Throat Pain, Throat Swelling, Other Respiratory: negative: Cough, Dry, Shortness of Breath, Hemoptysis, SOB with Excertion, Pleuritic Pain, Sputum, Wheezing Cardiovascular: negative: chest pain, palpitations, orthopnea, paroxysmal nocturnal dyspnea, edema, light headedness, other Gastrointestinal: negative: Nausea, Vomiting, Abdominal Pain, Diarrhea, Constipation, Melena, Hematochezia, Other Genitourinary: negative: Dysuria, Frequency, Incontinence, Hematuria, Retention , Other Musculoskeletal: negative: Neck Pain, Shoulder Pain, Arm Pain, Back Pain, Hand Pain, Leg Pain, Foot Pain, Other Skin: negative: Rash, Lesions, Todd, Bruising, Other - Medications/Allergies Allergies/Adverse Reactions: Allergies Allergy/AdvReac Type Severity Reaction Status Date / Time lisinopril Allergy Severe Swollen Verified 10/01/17 23:50 Lips
--- NOTE | 2018-01-12 13:19 | DIS ---
PRIMARY CARE PHYSICIAN: Brayan Dykes M.D. DATE OF ADMISSION: 01/11/2018 DATE OF DISCHARGE: 01/12/2018 DISCHARGE DISPOSITION: Home. PRIMARY DISCHARGE DIAGNOSIS: 1. Chronic obstructive pulmonary disease exacerbation, controlled. 2. Mild hypoxic respiratory failure on admission, resolved. 3. Demand ischemia of myocardium. SECONDARY DISCHARGE DIAGNOSES: Tobacco abuse disorder, moderate protein calorie malnutrition noncomp liance with treatment, chronic obstructive pulmonary disease, protein calorie malnutrition. PRIMARY PROCEDURE/OPERATION: None. RADIOLOGICAL INVESTIGATION: Chest x-ray consistent with COPD. SIGNIFICANT LABORATORY DATA: WBC 15.0, hemoglobin 11.0, platelet 203. Sodium 137, potassium 4.1, ch loride 102, BUN 17, creatinine 0.83, calcium 9.4. Liver enzymes normal. Cardiac enzymes negative x2 and one time indeterminant troponin. DISCHARGE MEDICATIONS: Albuterol inhaler q.8 hourly p.r.n., Norvasc 5 mg p.o. daily, Pepcid 20 mg p. o. b.i.d., Proscar 5 mg p.o. daily, Mucinex 600 mg twice daily for 7 days, DuoNeb q.4 hourly and p.r. n., Levaquin 500 mg p.o. daily for 5 days, Dulera 2 puffs inhalation b.i.d., prednisone 20 mg p.o. b. i.d. for 5 days, and Flomax 0.4 mg p.o. daily. CONTRAINDICATIONS: None. CODE STATUS: FULL CODE. INPATIENT CONSULTANTS: None. ALLERGIES: LISINOPRIL. DISCHARGE PLAN: Post hospital, the patient will follow up with primary care physician in 1 week. HOSPITAL COURSE: A 67-year-old male, who has severe COPD as well as ongoing tobacco abuse disorder a nd lately he required a couple of emergency room visit for cough and shortness of breath. This time, he presented to emergency room with similar complaint with increasing dyspnea and cough, and he was not feeling better with outpatient treatment and that is why patient was observed on medical floor. We treated him with the Solu-Medrol, DuoNeb, empiric antibiotic therapy with Levaquin as well as Dule ra and Mucinex. The next day, the patient has significant improvement. He was on room air. He was tolerating p.o. well. He was able to talk in full sentences. He was ambulatory and he was saturatin g normal after ambulation. During this admission, we prescribed Levaquin and prednisone for another 5 days. Rest of medication he will continue. We provided patient counseling to avoid smoking. Healthy lifestyle measures discu ssed with the patient. Patient is also given instruction to try oral supplement for his malnutrition . The patient is medically stable for discharge. All new medication prescription sent to his pharmacy.
== END 2018-01-12 10:51 | disposition home or self-care (01) ==
LOC: ERS 23:04 → 2SW 01-11 00:10
PROVIDERS: ADMIT Hospitalist; ATTEND Hospitalist
DX: J44.1 Chronic obstructive pulmonary disease with (acute) exacerbation (principal); J96.01 Acute respiratory failure with hypoxia; I24.8 Other forms of acute ischemic heart disease; K21.9 Gastro-esophageal reflux disease without esophagitis; N40.0 Benign prostatic hyperplasia without lower urinary tract symptoms; F17.210 Nicotine dependence, cigarettes, uncomplicated; I10 Essential (primary) hypertension; D64.9 Anemia, unspecified; E44.0 Moderate protein-calorie malnutrition; Z68.1 Body mass index [BMI] 19.9 or less, adult; Z79.899 Other long term (current) drug therapy; Z88.8 Allergy status to other drugs, medicaments and biological substances; Z91.19 Patient's noncompliance with other medical treatment and regimen
CPT/HCPCS: 80053; 84484 ×3; 85025; 93005; 94640 ×5; 94760; 96365; 96366; 96375; 96376 ×2; 97139; 99285; G0378; 36415; J1956; J2920; J7620

== ENCOUNTER 2018-05-04 16:27 | Inpatient (IN) | payer MEDICARE, MEDICAID ==
[2018-05-04] MEDS ORDERED: methylPREDNISolone Sod Succ/PF 125 MG/2 ML VIAL ONE ×2 (17:12→17:17)
[2018-05-04] MEDS ORDERED: Magnesium 2 GM/50 ML 2 GM in Premix Bag 1 BAG IVPB SCH (17:15)
[2018-05-04] MEDS ORDERED: Water For Inject, Bacteriostat 0 ML ONE (17:17)
[2018-05-04 17:28] LABS: #Eosinphils 0.2 thou/uL (0.0-0.7); #Monocytes 0.9 thou/uL (0.11-0.59); #Neutrophils 5.2 thou/uL (1.40-6.50); %Basophils 0.5 % (0.0-1.0); %Lymphocytes 24.3 % (21.0-51.0); %Neutrophils 62.2 % (42.0-75.0); Mean Corpuscular HGB CONC 32.6 g/dL (32.0-36.0); Mean Corpuscular Hemoglobin 30.5 pg (27.0-31.0); Mean Corpuscular Volume 93.5 fL (78.0-98.0); Mean Platelet Volume 6.9 fL (7.4-10.4); Platelet Count 219 thou/uL (130-400); RBC Distribution Width 13.2 % (11.5-14.5); Red Blood Cell (RBC) Count 3.96 mill/uL (4.70-6.10); White Blood Cell (WBC) Count 8.3 thou/uL (4.8-10.8)
[2018-05-04 17:43] LABS: ALT (SGPT) 7 U/L (8-55); AST (SGOT) 18 U/L (5-34); Albumin 4.2 g/dL (3.4-4.8); Alkaline Phosphatase 74 U/L (40-150); Anion Gap 12 mmol/L (10-20); BUN (Urea Nitrogen) 7 mg/dL (8.4-25.7); Bilirubin, Total 1.3 mg/dL (0.2-1.2); Calc. Creatinine Clearance 0 mL/min (70-130); Calcium 9.6 mg/dL (7.8-10.44); Carbon Dioxide 25 mmol/L (23-31); Chloride 105 mmol/L (98-107); Estimated GFR-MDRD Greater than 90; Globulin 3.3 g/dL (2.4-3.5); Glucose 102 mg/dL (80-115); Potassium 3.6 mmol/L (3.5-5.1); Protein, Total 7.5 g/dL (5.8-8.1); Sodium 138 mmol/L (136-145)
[2018-05-04 17:48] LABS: Troponin I Less than 0.010 ng/mL (< 0.028)
[2018-05-04] MEDS ORDERED: Albuterol Sulfate 2.5 mg/3 ml Neb ONE (18:19)
[2018-05-04] MEDS ORDERED: Azithromycin 500 MG VIAL ONE (18:25)
--- NOTE | 2018-05-04 18:51 | PDOC.FPRHP ---
- History of Present Illness Chief Complaint: SOB History of Present Illness: History difficult to obtain due to patient on Bipap, unable to speak due to SOB. Patient presents via EMS from home with SOB that has worsened since yesterday. Home nebulizers have not been adequate to control symptoms. Reported that sats 88% on RA by EMS. Pt placed on Bipap. Last admission 01/12/2018 for same complaint. ED Course: azithromycin, albuterol, duoneb, 125 solumedrol, magnesium 2g - Allergies/Adverse Reactions Allergies Allergy/AdvReac Type Severity Reaction Status Date / Time lisinopril Allergy Severe Swollen Verified 05/04/18 22:39 Lips - Home Medications Medication Instructions Recorded Confirmed Type Albuterol Sulfate [Albuterol 1 unit INH Q8HR #90 vial 05/29/16 05/04/18 Rx Sulfate Neb] Amlodipine [Norvasc] 5 mg PO DAILY 10/05/17 05/04/18 History Famotidine [Pepcid] 20 mg PO BID #14 tablet 10/05/17 05/04/18 Rx Finasteride [Proscar] 5 mg PO DAILY 10/05/17 05/04/18 History Tamsulosin HCl [Flomax] 0.4 mg PO DAILY 10/05/17 05/04/18 History Ipratropium/Albuterol Sulfate 3 ml NEB Q4HR #120 neb 01/12/18 05/04/18 Rx [DuoNeb] Mometasone/Formoterol 200/5 2 puff INH BID #7 aer 01/12/18 05/04/18 Rx [Dulera 200 Mcg/5 Mcg Inhaler] guaiFENesin ER [Mucinex] 600 mg PO Q12HR #14 tab 01/12/18 05/04/18 Rx predniSONE 20 mg PO BID-WM #10 tab 01/12/18 05/04/18 Rx - History PMHx: COPD, GERD, HTN, BPH, tobacco abuse, malnutrition PSHx: unable to obtain FHx: unable to obtain Social: Lives at home with daughter. Per previous records, social alcohol use, tobacco use 1/2 PPD, no drug use. - Review of Systems ROS unobtainable: other (due to SOB on bipap) General: denies: fever/chills Respiratory: reports: shortness of breath. denies: cough Cardiovascular: denies: chest pain - Vital signs BP: 153/90 HR: 91 RR: 29 O2: 94% on Bipap 35% Wt: 46 kg - Physical Exam Constitutional: other (SOB on bipap,tripod position at side of bed) HEENT: normocephalic and atraumatic, PERRLA, EOMI, grossly normal vision, grossly normal hearing Heart: RRR, normal S1/S2 Lungs: other (respiratory distress, tachypneic, diffuse course breath sounds, wheezing, rhonchi) Abdomen: soft (thin), bowel sounds present Musculoskeletal: normal structure, normal tone Neurological: no focal deficit Skin: good turgor Heme/Lymphatic: no unusual bruising or bleeding FMR H&P: Results - Labs Result Diagrams: 05/04/18 17:18 05/04/18 17:18 Lab results: WBC 8.3 thou/uL (4.8-10.8) 05/04/18 17:18 Hgb 12.0 g/dL (14.0-18.0) L 05/04/18 17:18 Hct 37.0 % (42.0-52.0) L 05/04/18 17:18 MCV 93.5 fL (78.0-98.0) 05/04/18 17:18 Plt Count 219 thou/uL (130-400) 05/04/18 17:18 Neutrophils % 62.2 % (42.0-75.0) 05/04/18 17:18 Sodium 138 mmol/L (136-145) 05/04/18 17:18 Potassium 3.6 mmol/L (3.5-5.1) 05/04/18 17:18 Chloride 105 mmol/L (98-107) 05/04/18 17:18 Carbon Dioxide 25 mmol/L (23-31) 05/04/18 17:18 BUN 7 mg/dL (8.4-25.7) L 05/04/18 17:18 Creatinine 0.84 mg/dL (0.6-1.3) 05/04/18 17:18 Glucose 102 mg/dL (80-115) 05/04/18 17:18 Calcium 9.6 mg/dL (7.8-10.44) 05/04/18 17:18 Total Bilirubin 1.3 mg/dL (0.2-1.2) H 05/04/18 17:18 AST 18 U/L (5-34) 05/04/18 17:18 ALT 7 U/L (8-55) L 05/04/18 17:18 Alkaline Phosphatase 74 U/L (40-150) 05/04/18 17:18 CK-MB (CK-2) 3.0 ng/mL (0-6.6) 05/04/18 17:18 B-Natriuretic Peptide 114.6 pg/mL (0-100) H 05/04/18 17:18 Serum Total Protein 7.5 g/dL (5.8-8.1) 05/04/18 17:18 Albumin 4.2 g/dL (3.4-4.8) 05/04/18 17:18 FMR H&P: A/P - Problem List (1) Acute respiratory failure with hypoxemia Current Visit: Yes Status: Acute Code(s): J96.01 - ACUTE RESPIRATORY FAILURE WITH HYPOXIA Comment: (2) Acute exacerbation of chronic obstructive pulmonary disease (COPD) Current Visit: No Status: Acute Code(s): J44.1 - CHRONIC OBSTRUCTIVE PULMONARY DISEASE W (ACUTE) EXACERBATION Comment: (3) HTN (hypertension) Current Visit: Yes Status: Acute Code(s): I10 - ESSENTIAL (PRIMARY) HYPERTENSION (4) GERD (gastroesophageal reflux disease) Current Visit: Yes Status: Chronic Code(s): K21.9 - GASTRO-ESOPHAGEAL REFLUX DISEASE WITHOUT ESOPHAGITIS (5) BPH (benign prostatic hyperplasia) Current Visit: Yes Status: Chronic Code(s): N40.0 - BENIGN PROSTATIC HYPERPLASIA WITHOUT LOWER URINRY TRACT SYMP (6) Protein-calorie malnutrition, moderate Current Visit: No Status: Chronic Code(s): E44.0 - MODERATE PROTEIN-CALORIE MALNUTRITION (7) Tobacco abuse disorder Current Visit: No Status: Chronic Code(s): Z72.0 - TOBACCO USE - Plan 67 yo M with PMH COPD presents in respiratory distress and placed on Bipap Acute hypoxic respiratory failure 2/2 COPD exacerbation - s/p azithromycin, mag, duonebs, solumedrol in ED. Supplemental O2 not sufficient so started on Bipap. - on bipap at 35%, blood gas pending - CXR negative for acute process, showed chronic hyperinflation, pulm vasc congestion - considering advanced disease, transition to cefepime (05/04) - continue steroids - duonebs q4h marisol and q2h prn - Pulmonology consult - IVF LR @ 100 maintenance - sputum gram stain and culture pending HTN - systolic 150s - continue home amlodipine Normocytic anemia - Hgb 12 - monitor on am cbc Hyperbilirubinemia - total bili 1.3 BPH - continue home finasteride and tamsulosin GERD - continue home med Tobacco abuse - encourage tobacco cessation BMI 16 - protein/calori malnutrition - treating engineer consult for supplement recommendations Ppx: Lovenox Dispo: admit to [facility] FMR H&P: Upper Level - Pertinent history 67 yo AAM with a PMH of COPD presenting with worsening dry cough, SOB, and chest tightness since yesterday. EMS was called and pt noted to be in respiratory distress despite home nebulized breathing treatments. Pt has been hospitalized multiple times for COPD exacerbations and notes similar symptoms. History difficult to obtain from pt due to being on bipap. Pt reportedly initially tachypneic with O2 88% on RA. - Pertinent findings Vitals: O2 90% on bipap 05/28, 35% fiO2 Gen: thin, moderate respiratory distress CV: tachycardic, no murmurs Resp: increased work of breathing, subcostal retractions, good air movement, prolonged expiratory phase with diffuse coarse expiratory wheezing BL - Plan Date/Time: 05/04/181850 I, Vinod Kearney MD PGY3, have evaluated this patient and agree with findings/ plan as outlined by internet e commerce specialist resident. Pertinent changes/additions are listed here. 1. Acute hypoxic respiratory failure 2/2 acute complicated COPD exacerbation -Pt presented with tachypnea, dyspnea, hypoxia and clinical exam consistent with COPD exacerbation. Pt did not respond to supplemental oxygen and required escalation to bipap. CXR revealed pulmonary vascular congestion and hyperventilation. Pt hospitalized in December with similar presentation. -ABG not obtained by ERMD but order placed and awaiting draw at this time. -Due to age, advanced COPD, and pseudomonas risk factors (including frequent abx use and hospitalizations) will transition abx coverage to Cefepime. -Obtain procalcitonin and sputum stain/culture. -Duonebs and steroids. -Continue bipap and await ABG results. -Will notify pulmonology as pt being admitted to IMCU. 2. HTN -Continue home amlodipine and continue to monitor. 3. Normocytic anemia -Stable, continue to monitor. 4. Tobacco abuse -Live In Caregiver cessation. 5. BPH -Continue home medications. FULL code PPx: Lovenox for VTE, no GI indicated disposition: Admit to inpatient IMCU for anticipated length of stay greater than two midnights, pending clinical course. Attending Addendum - Attending Addendum Date/Time: 05/04/18 0540 I personally evaluated the patient and discussed the management with Dr. Mckenzie and Caio I agree with the History, Examination, Assessment and Plan documented above with any addition or exceptions noted below- 67 yo male with h/o HTN, GERD, BPH , and COPD brought by EMS due to SOB x 1 day. Patient denies any fever/chills. Denies any sputum production. Denies any cough, URI symptomsm chest pain. States that SOB of breath has been progressive over the last day. Did not improve with home nebs. In ER received duonebs, magnesoim, zithromax, and solumedrol and continued to have significant respiratory distress. Placed on BiPap- patient feeling better now. PMH/PSH/Meds/All reviewed and agree with resident's findings. Afebrile BP 164/81, P94 RR25 97% on bipap (35% FiO2). Exam repeated by me and significant for diffuse inspiratory and expiratory wheezes; prolonged expiratory phase. Labs: WBC=8.3, H/H=12/37m Oro=668, Ae=150, K=3.6, Gl=835, CO2=25, BUN/Cr=7/0.84, Izdu=057, AST/ALT=18/7. ABG 7.29/87/51/ 28. CXR- hyperinflation; no infiltrates. A/P: 1) Acute on chronic resp failure due to COPD exacerbation- Continue Bipap/ Continue nebs, fluids, steroids. 2) HTN- resume home meds and monitor.
--- NOTE | 2018-05-04 18:55 | RAD ---
AP VIEW CHEST: 05/04/2018 HISTORY: Shortness of breath. COMPARISON: 01/02/2018 FINDINGS: AP view chest demonstrates mild pulmonary vascular congestion. No evidence of effusions, pneumonia, or pneumothorax is seen. IMPRESSION: Pulmonary vascular congestion; otherwise, unremarkable anterior-posterior view chest. POS: [facility]
[2018-05-04 20:19] LABS: Actual Bicarbonate (HCO3a) 24.3 mEq/L (22-28); Analyzer IN Cardio ER; Base Excess (BEa) -2.8 mEq/L (-2.0 to +3.0); CO2 Tension 51.8 mmHg (35.0-45.0); Calcium, Ionized 1.15 mmol/L (1.12-1.30); Carboxyhemoglobin (COHb) 1.2 gm% (0.0-3.0); Hemoglobin (Hb) 12.6 g/dL (14.0-18.0); O2 Tension (PaO2) 87.9 mmHg (> 80.0); Potassium - ABG Lab 4.16 mmol/L (3.70-5.30); pH, Arterial 7.29 (7.35-7.45)
[2018-05-04 21:00] LABS: Troponin I Less than 0.010 ng/mL (< 0.028)
[2018-05-04] MEDS ORDERED: Ondansetron ODT 4 MG TAB PO PRN (21:46)
[2018-05-04] MEDS ORDERED: Acetaminophen 325 MG TAB PO PRN (21:46)
[2018-05-04] MEDS: Cefepime 2 GM in Sodium Chloride 0.9% 100 ML IVPB SCH (22:22)
[2018-05-04] MEDS: Lactated Ringer's 1,000 ML IV SCH (22:23)
[2018-05-05 02:49] LABS: CO2 Tension 69.2 mmHg (35.0-45.0); O2 Tension (PaO2) 61.9 mmHg (> 80.0); pH, Arterial 7.21 (7.35-7.45)
[2018-05-05 02:50] LABS: Actual Bicarbonate (HCO3a) 27.3 mEq/L (22-28); Base Excess (BEa) 1.8 mEq/L (-2.0 to +3.0); Carboxyhemoglobin (COHb) 1.6 gm% (0.0-3.0); Hemoglobin (Hb) 12.1 g/dL (14.0-18.0); Potassium - ABG Lab 4.62 mmol/L (3.70-5.30)
[2018-05-05 02:51] LABS: Calcium, Ionized 1.18 mmol/L (1.12-1.30); Puncture Site RRA
[2018-05-05] MEDS ORDERED: Midazolam HCl 2 mg/2 ml Vial ONE ×2 (03:28→03:35)
[2018-05-05] MEDS ORDERED: Morphine 4 MG/ML VIAL ONE (03:35)
[2018-05-05] MEDS ORDERED: Propofol 1,000 MG/100 ML VIAL IV ONE (03:39)
[2018-05-05] MEDS ORDERED: Ventilator Sedation Protocol 1 EACH FS ONE (03:41)
[2018-05-05] MEDS ORDERED: fentaNYL Citrate/PF 2,000 MCG in Sodium Chloride 0.9% 60 ML IV SCH (03:45)
[2018-05-05] MEDS ORDERED: Morphine 2 MG/ML SYRINGE SLOW IVP PRN (03:45)
[2018-05-05] MEDS ORDERED: Fentanyl BOLUS 250 ML IVPB PRN (03:45)
[2018-05-05] MEDS ORDERED: Midazolam HCl 2 mg/2 ml Vial SLOW IVP SCH (03:45)
[2018-05-05] MEDS ORDERED: Propofol BOLUS 1,000 MG/100 ML VIAL IV PRN (03:45)
[2018-05-05] MEDS ORDERED: Morphine 4 MG/ML VIAL SLOW IVP SCH (03:45)
[2018-05-05] MEDS ORDERED: DISCONTINUE PREVIOUS NARCOTIC PAIN MEDICATIONS AND BENZODIAZEPINES FS SCH (03:45)
[2018-05-05] MEDS ORDERED: Lactated Ringer's 500 ML IV SCH (04:00)
--- NOTE | 2018-05-05 04:13 | PDOC.EVN ---
Event Note - Event Note Event Note: INDICATION: Worsening respiratory status on Bipap PROCEDURE CLOTH DYER: Jazmine ATTENDING PHYSICIAN: Dr. Girard. Dr. Hines in attendance as well. CONSENT: Consent was obtained from patient prior to the procedure. Indications, risks, and benefits were explained. Patient desired intubation. PROCEDURE SUMMARY: A time out was performed. My hands were washed immediately prior to the procedure. The patient was placed on a monitor tech including continuous pulse oximetry. The patient received 2 mg of versed and 4 mg morphine for procedure. Using a glidescope and a size 7.5 endotracheal tube with stylet, the patient was intubated on the second attempt. The stylet was removed and cuff balloon was inflated. Appropriate endotracheal tube position was confirmed by CO2 colometric indicator and symmetric breath sounds. The tube was secured at 23 cm at the lips. Post intubation chest x-ray is pending at this time.
[2018-05-05] MEDS: Lorazepam 2 MG/ML VIAL SLOW IVP PRN ×2 (04:17→22:34)
[2018-05-05] MEDS: Propofol 1,000 MG/100 ML VIAL IV PRN ×2 (04:23→16:09)
[2018-05-05 04:45] LABS: pH, Arterial 7.23 (7.35-7.45)
[2018-05-05 04:47] LABS: Actual Bicarbonate (HCO3a) 25.7 mEq/L (22-28); Base Excess (BEa) -2.8 mEq/L (-2.0 to +3.0); Carboxyhemoglobin (COHb) 0.4 gm% (0.0-3.0); Hemoglobin (Hb) 11.7 g/dL (14.0-18.0)
[2018-05-05 04:48] LABS: Calcium, Ionized 1.14 mmol/L (1.12-1.30); Puncture Site RBR
[2018-05-05 05:18] LABS: Anion Gap 15 mmol/L (10-20); BUN (Urea Nitrogen) 14 mg/dL (8.4-25.7); Calc. Creatinine Clearance 55 mL/min (70-130); Calcium 8.7 mg/dL (7.8-10.44); Carbon Dioxide 24 mmol/L (23-31); Chloride 104 mmol/L (98-107); Estimated GFR-MDRD Greater than 90; Glucose 190 mg/dL (80-115); Potassium 4.9 mmol/L (3.5-5.1); Sodium 138 mmol/L (136-145)
[2018-05-05 06:19] LABS: #Eosinphils 0.1 thou/uL (0.0-0.7); #Lymphocytes 0.7 thou/uL (1.20-3.40); #Monocytes 0.3 thou/uL (0.11-0.59); #Neutrophils 14.6 thou/uL (1.40-6.50); %Eosinophils 0.4 % (0.0-10.0); %Lymphocytes 4.7 % (21.0-51.0); %Monocytes 1.6 % (0.0-10.0); %Neutrophils 93.3 % (42.0-75.0); Hemoglobin 11.4 g/dL (14.0-18.0); Mean Corpuscular HGB CONC 32.3 g/dL (32.0-36.0); Mean Corpuscular Hemoglobin 30.3 pg (27.0-31.0); Mean Corpuscular Volume 93.8 fL (78.0-98.0); Mean Platelet Volume 7.4 fL (7.4-10.4); Platelet Count 203 thou/uL (130-400); RBC Distribution Width 13.3 % (11.5-14.5); RBC Morphology Normal; Red Blood Cell (RBC) Count 3.76 mill/uL (4.70-6.10); White Blood Cell (WBC) Count 15.7 thou/uL (4.8-10.8)
--- NOTE | 2018-05-05 06:31 | CON ---
DATE OF CONSULTATION: 05/05/2018 HISTORY OF PRESENT ILLNESS: A 67-year-old gentleman admitted at 1632 with respiratory failure, COPD exacerbation. Dry cough that is in the chest, he was given breathing treatments. He was hospitalized 2 months ago. He is still smoking apparently. He has a history of apparently al cohol abuse. This evening, he got progressively worse with marked respiratory acidosis. Blood gases showed a pO2 of 61, pCO2 . He was brought into the ICU where he was intubated by the residents. There was c opious amount of pus at the back of his throat. He received 2 of Versed and 4 of morphine during the procedure. A flexible bronchoscope was then passed to clean his airways. To my surprise, the trach ea was normal. Right lung was inspected initially at upper and middle lobe. Minimal amount of pus w as seen. This was lavaged to clear. The left lung was also inspected. Once again, there was minima l pus, but no endobronchial obstruction or blood was seen, this to clear. Most of his secretions appeared to be in his posterior pharynx. He is now connected to warm cycle respirator. Chest x-ray immediately post-intubation shows hyperinflation, but no obvious acute infiltrates. PAST MEDICAL HISTORY: COPD, reflux, hypertension, BPH, cachexia. MEDICATIONS: His list of medicine at this time appears to include prednisone 20, Flomax 0.4, Mucinex , Dulera inhaler, nebulizer, Proscar 5, Pepcid 20, Norvasc 5. SOCIAL AND FAMILY HISTORY: Otherwise unremarkable. REVIEW OF SYSTEMS: Unobtainable. PHYSICAL EXAMINATION: VITAL SIGNS: Post-intubation, his sats are 98%, pulse 80, blood pressure 130/80. CHEST: Decreased breath sounds without any wheezing. CARDIAC: Normal S1, S2. No gallops. ABDOMEN: Soft. No masses. LABORATORY DATA: White count 8000, H&H is 12 and 37, platelet count is 219. Electrolytes are normal . BNP is normal. ASSESSMENT: 1. Chronic obstructive pulmonary disease exacerbation. 2. Bronchitis. 3. Respiratory failure. 4. Malnourishment. 5. Cachexia. 6. Benign prostatic hypertrophy. PLAN: Agree with steroids, neb treatments, antibiotics. Nutrition in the next 24 hours. We will follow. Forty-five minutes critical care time.
--- NOTE | 2018-05-05 06:55 | PDOC.FM ---
- Subjective Subjective: Elizabeth Mac seen at bedside this morning, sedated and paralyzed on mechanical ventilation. Last night, he was initially on Bipap but continued to have worsening respiratory distress and decision was made to intubate him. He has since been on mechanical ventilation. BPs decreased down to 60s systolic, around 0600 this morning but responded to 500 cc bolus. Since then BPs have been stable, most recent 132/61. Right midline was placed this morning. Most recent ABG is improving: pH 7.33, pCO2 47, pO2 160 Vent Settings: f 24, Vt 350, Psupp 10, PEEP 5.0, FiO2 50% Size 7.5 ET tube Day #1 Urinary Catheter Day #1 Right Midline Day #1 L pIV Day #2 OG tube Day #2 - Objective MAR Reviewed: Yes Vital Signs & Weight: Vital Signs (12 hours) Temp Pulse Resp BP BP BP Pulse Ox 05/05/18 06:00 24 H 05/05/18 04:00 97.7 F 18 100 05/05/18 03:51 77 90/51 L 05/05/18 03:00 97.6 F 95 32 H 158/89 H 90 L 05/05/18 02:00 94 168/76 H 05/05/18 00:07 87 05/05/18 00:05 98 05/05/18 00:00 97.3 F L 97 27 H 189/86 H 98 05/04/18 22:39 97 05/04/18 22:00 93 137/90 05/04/18 21:30 100 05/04/18 21:19 93 05/04/18 21:15 98.6 F 92 28 H 170/89 H 100 Weight Weight 46.3 kg Most Recent Monitor Data Heart Rate from ECG 76 NIBP 98/61 NIBP BP-Mean 73 Respiration from ECG 24 SpO2 100 I&O: 05/03/18 05/04/18 05/05/18 06:59 06:59 06:59 Intake Total 1274 Output Total 655 Balance 619 Result Diagrams: 05/05/18 04:52 05/05/18 04:52 <Marcelo Marcos - Last Filed: 05/05/18 09:02> - Objective Vital Signs & Weight: Vital Signs (12 hours) Temp Pulse Resp BP Pulse Ox 05/05/18 20:00 18 100 05/05/18 19:00 98.9 F 05/05/18 18:18 92 125/61 05/05/18 18:17 93 18 100 05/05/18 18:00 18 05/05/18 16:00 99 F 18 05/05/18 14:52 79 117/61 05/05/18 14:00 18 05/05/18 13:00 79 110/52 L 05/05/18 12:00 99.2 F 18 05/05/18 10:15 76 Weight Admit Weight 46.295 kg Weight 46.295 kg Most Recent Monitor Data Heart Rate from ECG 74 NIBP 104/45 NIBP BP-Mean 64 Respiration from ECG 18 SpO2 100 I&O: 05/04/18 05/05/18 05/06/18 06:59 06:59 06:59 Intake Total 1274 1811 Output Total 655 565 Balance 619 1246 Result Diagrams: 05/05/18 04:52 05/05/18 04:52 <Igor Wick - Last Filed: 05/05/18 22:05> Phys Exam - Physical Examination Constitutional: NAD HEENT: moist MMs, sclera anicteric Neck: no JVD, supple expiratory wheezes present and decreased air movement Cardiovascular: RRR, no significant murmur Gastrointestinal: soft, non-tender Musculoskeletal: no edema, pulses present Deviation from normal: sedated <Marcelo Marcos - Last Filed: 05/05/18 09:02> Dx/Plan (1) Acute respiratory failure with hypoxemia Code(s): J96.01 - ACUTE RESPIRATORY FAILURE WITH HYPOXIA Status: Acute (2) Acute exacerbation of chronic obstructive pulmonary disease (COPD) Code(s): J44.1 - CHRONIC OBSTRUCTIVE PULMONARY DISEASE W (ACUTE) EXACERBATION Status: Acute (3) HTN (hypertension) Code(s): I10 - ESSENTIAL (PRIMARY) HYPERTENSION Status: Chronic (4) BPH (benign prostatic hyperplasia) Code(s): N40.0 - BENIGN PROSTATIC HYPERPLASIA WITHOUT LOWER URINRY TRACT SYMP Status: Chronic (5) GERD (gastroesophageal reflux disease) Code(s): K21.9 - GASTRO-ESOPHAGEAL REFLUX DISEASE WITHOUT ESOPHAGITIS Status: Chronic - Plan Plan: 1. Acute hypoxic respiratory failure 2/2 acute complicated COPD exacerbation: - Pt presented with tachypnea, dyspnea, hypoxia and clinical exam consistent with COPD exacerbation. 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 - ABG: pH 7.33, pCO2 47, pO2 160, prior to intubation and mech ventilation - Continue cefipime, Day #1 - Procal was 0.03 - Continue agressive Duonebs and steroids. - Dr. Mckinney, consulted, present for intubation last night 2. HTN - Continue home amlodipine and continue to monitor. 3. Normocytic anemia - Stable, continue to monitor. 4. Tobacco abuse - Consumer Loan Manager cessation. 5. BPH - Continue home medications. FULL code PPx: Lovenox for VTE, no GI indicated <Marcelo Marcos - Last Filed: 05/05/18 09:02> Attending Addendum - Attending Addendum Date/Time: 05/05/18 5161 I personally evaluated the patient and discussed the management with Dr. Marcos. I agree with and repeated the History, Examination, Assessment and Plan documented above with any addition or exceptions noted below. <Igor Wick - Last Filed: 05/05/18 22:05>
[2018-05-05] MEDS ORDERED: Sodium Chloride 0.9% 500 ML IV SCH (07:30)
[2018-05-05 07:31] LABS: Base Excess (BEa) -2.2 mEq/L (-2.0 to +3.0); Calcium, Ionized 1.12 mmol/L (1.12-1.30); Carboxyhemoglobin (COHb) 1.4 gm% (0.0-3.0); Hemoglobin (Hb) 11.2 g/dL (14.0-18.0); O2 Tension (PaO2) 160.3 mmHg (> 80.0); Potassium - ABG Lab 4.49 mmol/L (3.70-5.30); pH, Arterial 7.33 (7.35-7.45)
[2018-05-05 07:32] LABS: Puncture Site LR
[2018-05-05] MEDS ORDERED: predniSONE 20 MG TAB PO SCH (08:00)
--- NOTE | 2018-05-05 08:40 | PRG ---
DATE OF SERVICE: 05/05/2018 CRITICAL CARE PROGRESS NOTE Additional 45 minutes critical care time with Dr. Mckinney, did earlier this morning. SUBJECTIVE: The patient remains on mechanical ventilation. His airways are still very tight and he has a very prolonged expiratory phase. OBJECTIVE: VITAL SIGNS: His temperature is 98.9, pulse 82, blood pressure 109/55. HEENT: Unremarkable. NECK: No JVD. LUNGS: Tight end expiratory wheezing. CARDIAC: S1 and S2 regular. ABDOMEN: Soft. EXTREMITIES: No edema. LABORATORY DATA: White blood cell count 15.7, hematocrit 35.3, platelet count 203,000. PH 7.33, pCO 2 of 47, pO2 of 160 on SIMV rate of 24, tidal volume of 350, PEEP 5, pressure support 10, FiO2 50%. Sodium 138, potassium 4.9, chloride 104, CO2 24, BUN 14, creatinine 0.8, glucose 190. ASSESSMENT: 1. Chronic obstructive pulmonary disease with exacerbation. 2. Acute hypercapnic respiratory failure requiring mechanical ventilation. PLAN: The patient needs a longer expiratory phase on the ventilator. I have adjusted his ventilator parameters and we will have to keep him paralyzed as necessary. He will continue antibiotics, stero ids and aggressive breathing treatments. We will go ahead and start tube feeds.
--- NOTE | 2018-05-05 08:47 | RAD ---
CHEST 1 VIEW: INDICATION: History of endotracheal tube placement. COMPARISON: Prior exam dated 05/04/2018. FINDINGS: There is gastric catheter and ET tube in place. Tube projects in the expected position. Lungs are c lear. COPD change is similar. No pleural effusion or pneumothorax is evident. No acute osseous abn ormality is evident. IMPRESSION: 1. Interval intubation and gastric catheter placement. 2. Stable changes of chronic obstructive pulmonary disease. POS: TPC
[2018-05-05] MEDS: Sodium Chloride 0.9% 1,000 ML IV SCH (08:56)
[2018-05-05] MEDS: Enoxaparin Sodium 40 MG/0.4 ML SYRINGE SC SCH (08:57)
[2018-05-05] MEDS: Famotidine 20 MG TAB PO SCH ×2 (08:57→22:37)
[2018-05-05] MEDS: Finasteride 5 MG TAB PO SCH (08:57)
[2018-05-05] MEDS: Tamsulosin HCl 0.4 MG CAP PO SCH (08:57)
[2018-05-05] MEDS: Amlodipine 5 MG TAB PO SCH (08:57)
[2018-05-05] MEDS: Cefepime 2 GM in Sodium Chloride 0.9% 100 ML IVPB SCH ×2 (09:22→22:33)
[2018-05-05] MEDS: Sterile Water 10 ML VIAL FS PRN ×2 (09:58→13:26)
[2018-05-05] MEDS: Vecuronium 10 MG VIAL IVP PRN ×3 (09:58→20:02)
[2018-05-05] MEDS: Lactated Ringer's 1,000 ML IV SCH (16:02)
[2018-05-06] MEDS: Sodium Chloride 0.9% 1,000 ML IV SCH ×2 (01:08→14:23)
[2018-05-06] MEDS: Sterile Water 10 ML VIAL FS PRN (03:22)
[2018-05-06] MEDS: Vecuronium 10 MG VIAL IVP PRN (03:22)
[2018-05-06 04:23] LABS: #Lymphocytes 0.7 thou/uL (1.20-3.40); #Monocytes 0.9 thou/uL (0.11-0.59); #Neutrophils 14.1 thou/uL (1.40-6.50); %Lymphocytes 4.2 % (21.0-51.0); %Monocytes 5.9 % (0.0-10.0); %Neutrophils 89.8 % (42.0-75.0); Hemoglobin 9.1 g/dL (14.0-18.0); Mean Corpuscular HGB CONC 31.9 g/dL (32.0-36.0); Mean Corpuscular Hemoglobin 30.2 pg (27.0-31.0); Mean Corpuscular Volume 94.5 fL (78.0-98.0); Mean Platelet Volume 7.4 fL (7.4-10.4); Platelet Count 193 thou/uL (130-400); RBC Distribution Width 13.3 % (11.5-14.5); Red Blood Cell (RBC) Count 3.01 mill/uL (4.70-6.10); White Blood Cell (WBC) Count 15.7 thou/uL (4.8-10.8)
[2018-05-06 05:23] LABS: Anion Gap 10 mmol/L (10-20); BUN (Urea Nitrogen) 18 mg/dL (8.4-25.7); Calc. Creatinine Clearance 59 mL/min (70-130); Calcium 8.8 mg/dL (7.8-10.44); Carbon Dioxide 23 mmol/L (23-31); Chloride 110 mmol/L (98-107); Estimated GFR-MDRD Greater than 90; Glucose 200 mg/dL (80-115); Potassium 4.7 mmol/L (3.5-5.1); Sodium 138 mmol/L (136-145)
--- NOTE | 2018-05-06 06:07 | PDOC.FM ---
- Subjective Subjective: Elizabeth Mac seen at bedside this morning. He is sedated on mechanical ventilation. He had no acute events overnight. ROS unable to obtain due to sedation. Most recent ABG is improving: pH 7.34, pCO2 47, pO2 107 Vent Settings: f 18, Vt 325, Psupp 10, PEEP 5.0, FiO2 35% Size 7.5 ET tube Day #2 Urinary Catheter Day #2 Right Midline Day #2 L pIV Day #3 OG tube Day #3 - Objective MAR Reviewed: Yes Vital Signs & Weight: Vital Signs (12 hours) Temp Pulse Resp BP Pulse Ox 05/06/18 02:38 69 110/55 L 05/06/18 02:37 71 18 100 05/06/18 02:00 18 05/06/18 00:00 98.3 F 18 05/05/18 22:15 94 115/54 L 05/05/18 22:12 87 18 100 05/05/18 20:00 18 100 05/05/18 19:00 98.9 F 05/05/18 18:18 92 125/61 05/05/18 18:17 93 18 100 Weight Admit Weight 46.295 kg Weight 46.295 kg Most Recent Monitor Data Heart Rate from ECG 73 NIBP 111/53 NIBP BP-Mean 72 Respiration from ECG 18 SpO2 100 I&O: 05/04/18 05/05/18 05/06/18 06:59 06:59 06:59 Intake Total 1274 1871 Output Total 655 895 Balance 619 976 Result Diagrams: 05/06/18 03:30 05/06/18 03:30 <Marcelo Marcos - Last Filed: 05/06/18 08:50> - Objective Vital Signs & Weight: Vital Signs (12 hours) Temp Pulse Resp BP Pulse Ox 05/06/18 16:00 97.7 F 05/06/18 15:19 100 05/06/18 14:28 63 129/57 L 05/06/18 14:00 18 05/06/18 12:49 67 18 100 05/06/18 12:00 98.1 F 05/06/18 11:57 18 05/06/18 11:35 18 05/06/18 10:41 62 139/56 L 05/06/18 10:40 63 18 100 05/06/18 10:00 18 05/06/18 08:00 98.4 F 18 05/06/18 07:40 18 100 05/06/18 06:57 83 123/62 05/06/18 06:55 87 18 95 Weight Admit Weight 46.295 kg Weight 46.295 kg Most Recent Monitor Data Heart Rate from ECG 67 NIBP 158/74 NIBP BP-Mean 102 Respiration from ECG 18 SpO2 100 I&O: 05/05/18 05/06/18 05/07/18 06:59 06:59 06:59 Intake Total 1274 2904 220 Output Total 655 1020 890 Balance 619 2588 -634 Result Diagrams: 05/06/18 03:30 05/06/18 03:30 <Igor Wick - Last Filed: 05/06/18 16:27> Phys Exam - Physical Examination Constitutional: NAD HEENT: moist MMs, sclera anicteric Neck: no JVD, supple tight, b/l exp wheezing Cardiovascular: RRR, no significant murmur Gastrointestinal: soft, non-tender Musculoskeletal: no edema Deviation from normal: sedated <Marcelo Marcos - Last Filed: 05/06/18 08:50> Dx/Plan (1) Acute respiratory failure with hypoxemia Code(s): J96.01 - ACUTE RESPIRATORY FAILURE WITH HYPOXIA Status: Acute (2) Acute exacerbation of chronic obstructive pulmonary disease (COPD) Code(s): J44.1 - CHRONIC OBSTRUCTIVE PULMONARY DISEASE W (ACUTE) EXACERBATION Status: Acute (3) HTN (hypertension) Code(s): I10 - ESSENTIAL (PRIMARY) HYPERTENSION Status: Chronic (4) BPH (benign prostatic hyperplasia) Code(s): N40.0 - BENIGN PROSTATIC HYPERPLASIA WITHOUT LOWER URINRY TRACT SYMP Status: Chronic (5) GERD (gastroesophageal reflux disease) Code(s): K21.9 - GASTRO-ESOPHAGEAL REFLUX DISEASE WITHOUT ESOPHAGITIS Status: Chronic - Plan Plan: 1. Acute hypoxic respiratory failure 2/2 acute complicated COPD exacerbation: - Pt presented with tachypnea, dyspnea, hypoxia and clinical exam consistent with COPD exacerbation. 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 - ABG this morning: pending - Continue cefipime, Day #3 - Procal was 0.03 - Continue agressive Duonebs and steroids and abx - Dr. Summers consulted - [facility] 2. HTN - Continue to hold amlodipine and continue to monitor BPs closely. 3. Normocytic anemia - Stable, continue to monitor. 4. 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 5. BPH - Continue home medications. FULL code PPx: Lovenox for VTE, IV pepcid for GI ppx <Marcelo Marcos - Last Filed: 05/06/18 08:50> Attending Addendum - Attending Addendum Date/Time: 05/06/18 3137 I personally evaluated the patient and discussed the management with Dr. Marcos. I agree with and repeated the History, Examination, Assessment and Plan documented above with any addition or exceptions noted below. I anticipate a prolonged intubation on this patient. He is quite cachectic. <Igor Wick - Last Filed: 05/06/18 16:27>
[2018-05-06 07:51] LABS: Actual Bicarbonate (HCO3a) 25.2 mEq/L (22-28); Base Excess (BEa) -0.8 mEq/L (-2.0 to +3.0); CO2 Tension 47.6 mmHg (35.0-45.0); Calcium, Ionized 1.21 mmol/L (1.12-1.30); Carboxyhemoglobin (COHb) 0.7 gm% (0.0-3.0); Hemoglobin (Hb) 10.3 g/dL (14.0-18.0); O2 Tension (PaO2) 107.9 mmHg (> 80.0); pH, Arterial 7.34 (7.35-7.45)
--- NOTE | 2018-05-06 08:13 | RAD ---
FRONTAL RADIOGRAPH CHEST: Date: 05-06-18 Comparison: 05-05-18 History: Intubated patient, respiratory distress. FINDINGS: Lungs are hyperinflated and there is increased linear interstitial density noted bilaterally, suggest ing underlying emphysematous change/COPD in the proper clinical setting. Endotracheal tube terminates at the level of the clavicular heads. Heart and mediastinal contours are stable. No pneumothorax, pl eural fluid, focal consolidation, or alveolar edema. Nasogastric tube extends into the upper abdomen. IMPRESSION: Stable appearance to the chest as above. POS: NADIA
--- NOTE | 2018-05-06 08:19 | PRG ---
DATE OF SERVICE: 05/06/2018 Thirty-five minutes critical care time. The patient remains intubated on mechanical ventilation. Overall, his respiratory mechanics look bet ter today in terms of better exhale time. PHYSICAL EXAMINATION: VITAL SIGNS: Temperature is 98.3, pulse 90, blood pressure 112/57, O2 sat 100%, 24 hour intake 2904, output 1020. HEENT: Unremarkable. NECK: No JVD. LUNGS: Inspiratory and expiratory rhonchi noted. CARDIOVASCULAR: S1, S2 regular. ABDOMEN: Soft, nontender. EXTREMITIES: No clubbing, cyanosis, or edema. LABORATORY DATA: Sodium 138, potassium 4.7, chloride 110, CO2 of 23, BUN 18, creatinine 0.8, glucose 200, pH was 7.34, pCO2 of 48, pO2 108, that is on SIMV rate 18, tidal volume 325, PEEP 5, pressure s upport 10, FiO2 40%. White blood cell count is 15.7, hematocrit 28.5, platelet count 193. Chest x-ray shows no mass, effusion or infiltrate. ASSESSMENT: Chronic obstructive pulmonary disease with exacerbation. He has improved respiratory me chanics compared to yesterday, but I do not think he is stable enough to facilitate weaning at this t margie RECOMMENDATION: I have adjusted his tidal volume upward as he is demanding more volume today. We wi ll continue steroids. I will increase the frequency of his nebulization treatments. He is being giv en tube feeds and is tolerating those fine.
[2018-05-06] MEDS: Tamsulosin HCl 0.4 MG CAP PO SCH (08:45)
[2018-05-06] MEDS: Finasteride 5 MG TAB PO SCH (08:45)
[2018-05-06] MEDS: Famotidine 20 MG TAB PO SCH ×2 (08:45→20:57)
[2018-05-06] MEDS: Enoxaparin Sodium 40 MG/0.4 ML SYRINGE SC SCH (08:46)
[2018-05-06] MEDS: Lorazepam 2 MG/ML VIAL SLOW IVP PRN ×4 (09:20→19:02)
[2018-05-06] MEDS: Cefepime 2 GM in Sodium Chloride 0.9% 100 ML IVPB SCH ×2 (09:35→21:08)
[2018-05-06] MEDS: Propofol 1,000 MG/100 ML VIAL IV PRN (14:27)
[2018-05-07] MEDS: Lorazepam 2 MG/ML VIAL SLOW IVP PRN ×3 (01:52→21:55)
[2018-05-07] MEDS: Propofol 1,000 MG/100 ML VIAL IV PRN ×3 (02:23→21:56)
[2018-05-07] MEDS: Vecuronium 10 MG VIAL IVP PRN (03:05)
[2018-05-07] MEDS: Sterile Water 10 ML VIAL FS PRN (03:05)
[2018-05-07 04:41] LABS: #Basophils 0.1 thou/uL (0.0-0.2); #Lymphocytes 0.7 thou/uL (1.20-3.40); #Monocytes 0.8 thou/uL (0.11-0.59); #Neutrophils 12.2 thou/uL (1.40-6.50); %Basophils 0.5 % (0.0-1.0); %Lymphocytes 5.3 % (21.0-51.0); %Neutrophils 88.3 % (42.0-75.0); Hemoglobin 9.8 g/dL (14.0-18.0); Mean Corpuscular HGB CONC 32.2 g/dL (32.0-36.0); Mean Corpuscular Hemoglobin 30.2 pg (27.0-31.0); Mean Corpuscular Volume 93.9 fL (78.0-98.0); Mean Platelet Volume 7.7 fL (7.4-10.4); Platelet Count 203 thou/uL (130-400); RBC Distribution Width 13.4 % (11.5-14.5); Red Blood Cell (RBC) Count 3.23 mill/uL (4.70-6.10); White Blood Cell (WBC) Count 13.8 thou/uL (4.8-10.8)
[2018-05-07 04:54] LABS: Anion Gap 7 mmol/L (10-20); BUN (Urea Nitrogen) 16 mg/dL (8.4-25.7); Calc. Creatinine Clearance 63 mL/min (70-130); Calcium 9.1 mg/dL (7.8-10.44); Carbon Dioxide 29 mmol/L (23-31); Chloride 110 mmol/L (98-107); Estimated GFR-MDRD Greater than 90; Glucose 189 mg/dL (80-115); Potassium 4.1 mmol/L (3.5-5.1); Sodium 142 mmol/L (136-145)
[2018-05-07 06:41] LABS: Actual Bicarbonate (HCO3a) 23.4 mEq/L (22-28); Base Excess (BEa) 0.1 mEq/L (-2.0 to +3.0); Carboxyhemoglobin (COHb) 0.2 gm% (0.0-3.0); O2 Tension (PaO2) 137.4 mmHg (> 80.0); pH, Arterial 7.47 (7.35-7.45)
[2018-05-07 06:44] LABS: Puncture Site RR
--- NOTE | 2018-05-07 06:55 | PDOC.FM ---
- Subjective Subjective: Elizabeth Mac seen at bedside this morning. He is sedated on mechanical ventilation. He had no acute events overnight. ROS unable to obtain due to sedation. Most recent ABG is improving: pH 7.47, pCO2 33, pO2 137 Vent Settings: f 12, Vt 400, Psupp 10, PEEP 5.0, FiO2 35% Size 7.5 ET tube Day #2 Urinary Catheter Day #2 Right Midline Day #2 L pIV Day #3 OG tube Day #3 - Objective MAR Reviewed: Yes Vital Signs & Weight: Vital Signs (12 hours) Temp Pulse Resp Pulse Ox 05/07/18 06:00 18 05/07/18 04:00 98.2 F 05/07/18 03:09 57 L 18 100 05/07/18 02:00 18 05/07/18 00:24 73 18 100 05/07/18 00:00 97.5 F L 18 05/06/18 22:14 59 L 18 100 05/06/18 22:00 18 05/06/18 20:00 97.8 F 18 100 Weight Admit Weight 46.295 kg Weight 46.295 kg Most Recent Monitor Data Heart Rate from ECG 70 NIBP 161/77 NIBP BP-Mean 105 Respiration from ECG 18 SpO2 100 I&O: 05/05/18 05/06/18 05/07/18 06:59 06:59 06:59 Intake Total 1274 2904 2976 Output Total 655 1020 1610 Balance 619 1884 1366 Result Diagrams: 05/07/18 04:20 05/07/18 04:20 <Marcelo Marcos - Last Filed: 05/07/18 10:46> - Objective Vital Signs & Weight: Vital Signs (12 hours) Temp Pulse Resp BP Pulse Ox 05/07/18 10:43 69 161/73 H 05/07/18 08:00 14 05/07/18 07:05 16 100 05/07/18 07:00 97.9 F 05/07/18 06:57 80 161/77 H 05/07/18 06:00 18 05/07/18 04:00 98.2 F 05/07/18 03:09 57 L 18 100 05/07/18 02:00 18 05/07/18 00:24 73 18 100 05/07/18 00:00 97.5 F L 18 Weight Admit Weight 46.295 kg Weight 46.295 kg Most Recent Monitor Data Heart Rate from ECG 72 NIBP 161/73 NIBP BP-Mean 102 Respiration from ECG 20 SpO2 100 I&O: 05/06/18 05/07/18 05/08/18 06:59 06:59 06:59 Intake Total 2904 2976 35 Output Total 1020 1610 430 Balance 1884 1366 -395 Result Diagrams: 05/07/18 04:20 05/07/18 04:20 <Igor Wick - Last Filed: 05/07/18 11:06> Phys Exam - Physical Examination Constitutional: NAD HEENT: moist MMs, sclera anicteric Neck: no JVD, supple chest is tight, but improved air movement compared to prev, exp wheezes Cardiovascular: RRR, no significant murmur Gastrointestinal: soft, no distention Musculoskeletal: no edema Deviation from normal: sedated <Marcelo Marcos - Last Filed: 05/07/18 10:46> Dx/Plan (1) Acute respiratory failure with hypoxemia Code(s): J96.01 - ACUTE RESPIRATORY FAILURE WITH HYPOXIA Status: Acute (2) Acute exacerbation of chronic obstructive pulmonary disease (COPD) Code(s): J44.1 - CHRONIC OBSTRUCTIVE PULMONARY DISEASE W (ACUTE) EXACERBATION Status: Acute (3) HTN (hypertension) Code(s): I10 - ESSENTIAL (PRIMARY) HYPERTENSION Status: Chronic (4) BPH (benign prostatic hyperplasia) Code(s): N40.0 - BENIGN PROSTATIC HYPERPLASIA WITHOUT LOWER URINRY TRACT SYMP Status: Chronic (5) GERD (gastroesophageal reflux disease) Code(s): K21.9 - GASTRO-ESOPHAGEAL REFLUX DISEASE WITHOUT ESOPHAGITIS Status: Chronic - Plan Plan: 1. Acute hypoxic respiratory failure 2/2 acute complicated COPD exacerbation: - Pt presented with tachypnea, dyspnea, hypoxia and clinical exam consistent with COPD exacerbation. 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 - ABG this morning: pH 7.47, pCO2 33.0, pO2 137 - Continue cefipime, Day #4 - Procal was 0.03 - Continue agressive Duonebs and steroids and abx - Dr. Summers consulted - [facility]. HTN - Continue to hold amlodipine and continue to monitor BPs closely. - BPs were low initially but have started to rise, most recent was 161/77 - Continue to monitor closely, if continue to rise, will start prn IV antihypertensives 3. Normocytic anemia - Stable, continue to monitor. 4. 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 5. BPH - Continue home medications. FULL code PPx: Lovenox for VTE, IV pepcid for GI ppx <Marcelo Marcos - Last Filed: 05/07/18 10:46> Attending Addendum - Attending Addendum Date/Time: 05/07/18 0505 I personally evaluated the patient and discussed the management with Dr. Marcos. I agree with and repeated the History, Examination, Assessment and Plan documented above with any addition or exceptions noted below. Continue current therapy. Sedation vacation tomorrow if his respiratory status continues to improve. <Igor Wick - Last Filed: 05/07/18 11:06>
[2018-05-07] MEDS: Sodium Chloride 0.9% 1,000 ML IV SCH ×2 (07:25→22:25)
--- NOTE | 2018-05-07 07:43 | PRG ---
DATE OF SERVICE: 05/07/2018 Thirty-five minutes critical care time. The patient remains intubated on mechanical ventilation. He is sedated on propofol and will not foll ow commands for me at the current time. PHYSICAL EXAMINATION: VITAL SIGNS: Temperature 98.2, pulse 70, blood pressure 161/71. Total intake 24 hours 2976, output 1610. HEENT: Unremarkable. NECK: No JVD. LUNGS: Mild end expiratory wheezing. CARDIAC: S1 and S2 regular. ABDOMEN: Soft. EXTREMITIES: No edema. LABORATORY DATA: PH 7.47, pCO2 of 33, pO2 of 137 on SIMV rate 18, tidal volume 400, PEEP 5, pressure support 10, FiO2 35%. White blood cell count 13.8, hematocrit 30.3, platelet count 203. Sodium 142 , potassium 4.1, chloride 110, CO2 29, BUN 16, creatinine 0.7, glucose 189. ASSESSMENT: 1. Status asthmaticus. 2. Chronic obstructive pulmonary disease with exacerbation. 3. Acute respiratory failure requiring mechanical ventilation. PLAN: 1. The patient's respiratory rate has been decreased. 2. Decrease nebs q.4 hours. 3. The goal is to wake him up tomorrow morning and perform a spontaneous breathing trial and see if we can extubate him.
[2018-05-07] MEDS: Tamsulosin HCl 0.4 MG CAP PO SCH (08:58)
[2018-05-07] MEDS: Famotidine 20 MG TAB PO SCH ×2 (08:59→22:26)
[2018-05-07] MEDS: Enoxaparin Sodium 40 MG/0.4 ML SYRINGE SC SCH (08:59)
[2018-05-07] MEDS: Finasteride 5 MG TAB PO SCH (08:59)
[2018-05-07] MEDS: Cefepime 2 GM in Sodium Chloride 0.9% 100 ML IVPB SCH ×2 (10:14→22:25)
[2018-05-08] MEDS: Vecuronium 10 MG VIAL IVP PRN (01:15)
[2018-05-08] MEDS: Sterile Water 10 ML VIAL FS PRN (01:15)
[2018-05-08 04:07] LABS: #Lymphocytes 0.8 thou/uL (1.20-3.40); #Monocytes 0.8 thou/uL (0.11-0.59); #Neutrophils 10.9 thou/uL (1.40-6.50); %Lymphocytes 6.5 % (21.0-51.0); %Monocytes 6.4 % (0.0-10.0); %Neutrophils 87.1 % (42.0-75.0); Hemoglobin 9.3 g/dL (14.0-18.0); Mean Corpuscular HGB CONC 32.5 g/dL (32.0-36.0); Mean Corpuscular Hemoglobin 30.3 pg (27.0-31.0); Mean Corpuscular Volume 93.3 fL (78.0-98.0); Mean Platelet Volume 7.8 fL (7.4-10.4); Platelet Count 200 thou/uL (130-400); RBC Distribution Width 13.5 % (11.5-14.5); Red Blood Cell (RBC) Count 3.07 mill/uL (4.70-6.10); White Blood Cell (WBC) Count 12.5 thou/uL (4.8-10.8)
[2018-05-08 04:21] LABS: Anion Gap 6 mmol/L (10-20); BUN (Urea Nitrogen) 17 mg/dL (8.4-25.7); Calc. Creatinine Clearance 63 mL/min (70-130); Calcium 9.1 mg/dL (7.8-10.44); Carbon Dioxide 30 mmol/L (23-31); Chloride 112 mmol/L (98-107); Estimated GFR-MDRD Greater than 90; Glucose 160 mg/dL (80-115); Potassium 4.3 mmol/L (3.5-5.1); Sodium 144 mmol/L (136-145)
--- NOTE | 2018-05-08 06:01 | PDOC.FM ---
- Subjective Subjective: Elizabeth Mac seen at bedside this morning. He is sedated on mechanical ventilation. He had no acute events overnight. ROS unable to obtain due to sedation. Most recent ABG: pH 7.28, pCO2 55.2, pO2 102.8 Vent Settings: f 12, Vt 400, Psupp 10, PEEP 5.0, FiO2 30% Size 7.5 ET tube Day #4 Urinary Catheter Day #4 Right Midline Day #4 L pIV Day #5 OG tube Day #4 - Objective MAR Reviewed: Yes Vital Signs & Weight: Vital Signs (12 hours) Temp Pulse Resp Pulse Ox 05/08/18 04:00 14 05/08/18 03:13 67 12 100 05/08/18 01:00 98.0 F 05/07/18 22:07 86 14 100 05/07/18 20:00 16 100 05/07/18 19:20 91 05/07/18 19:19 90 21 H 100 05/07/18 19:00 98.5 F Weight Admit Weight 46.295 kg Weight 46.295 kg Most Recent Monitor Data Heart Rate from ECG 68 NIBP 130/60 NIBP BP-Mean 83 Respiration from ECG 24 SpO2 100 I&O: 05/06/18 05/07/18 05/08/18 06:59 06:59 06:59 Intake Total 2904 2976 1624 Output Total 1020 1610 1715 Balance 1884 1366 -91 Result Diagrams: 05/08/18 03:35 05/08/18 03:35 <Marcelo Marcos - Last Filed: 05/08/18 10:26> - Objective Vital Signs & Weight: Vital Signs (12 hours) Pulse Resp Pulse Ox 05/08/18 13:04 64 05/08/18 12:00 15 05/08/18 10:21 74 05/08/18 10:00 15 05/08/18 08:00 15 05/08/18 07:25 16 100 05/08/18 06:40 90 05/08/18 06:00 12 05/08/18 04:00 14 05/08/18 03:13 67 12 100 Weight Admit Weight 46.295 kg Weight 46.295 kg Most Recent Monitor Data Heart Rate from ECG 56 NIBP 128/59 NIBP BP-Mean 82 Respiration from ECG 15 SpO2 100 I&O: 05/07/18 05/08/1805/09/18 06:59 06:59 06:59 Intake Total 2976 3114 180 Output Total 1610 4985 330 Balance 1366 1249 -150 Result Diagrams: 05/08/18 03:35 05/08/18 03:35 <Igor Wick - Last Filed: 05/08/18 14:21> Phys Exam - Physical Examination Constitutional: NAD HEENT: moist MMs Neck: no JVD, supple mild wheezes, lungs remain tight, decreased air movement Cardiovascular: RRR, no significant murmur Gastrointestinal: soft, no distention Musculoskeletal: no edema, pulses present Deviation from normal: sedated <HemantMarcelo zaman - Last Filed: 05/08/18 10:26> Dx/Plan (1) Acute respiratory failure with hypoxemia Code(s): J96.01 - ACUTE RESPIRATORY FAILURE WITH HYPOXIA Status: Acute (2) Acute exacerbation of chronic obstructive pulmonary disease (COPD) Code(s): J44.1 - CHRONIC OBSTRUCTIVE PULMONARY DISEASE W (ACUTE) EXACERBATION Status: Acute (3) HTN (hypertension) Code(s): I10 - ESSENTIAL (PRIMARY) HYPERTENSION Status: Chronic (4) BPH (benign prostatic hyperplasia) Code(s): N40.0 - BENIGN PROSTATIC HYPERPLASIA WITHOUT LOWER URINRY TRACT SYMP Status: Chronic (5) GERD (gastroesophageal reflux disease) Code(s): K21.9 - GASTRO-ESOPHAGEAL REFLUX DISEASE WITHOUT ESOPHAGITIS Status: Chronic - Plan Plan: 1. Acute hypoxic respiratory failure 2/2 acute complicated COPD exacerbation: - Pt presented with tachypnea, dyspnea, hypoxia and clinical exam consistent with COPD exacerbation. 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 - ABG this morning: pH 7.28, pCO2 55.2, pO2 102.8 - Continue cefipime, Day #5 - Procal was 0.03 - Continue agressive Duonebs and steroids and abx - Dr. Summers consulted - Will likely need several days total on [facility] vent 2. HTN - Continue to hold amlodipine and continue to monitor BPs closely. - BPs were low initially but have started to rise, most recent was 130/68 - Continue to monitor closely, if continue to rise, will start prn IV antihypertensives 3. Normocytic anemia - Stable, continue to monitor. 4. 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 5. BPH - Continue home medications. FULL code PPx: Lovenox for VTE, IV pepcid for GI ppx <Marcelo Marcos - Last Filed: 05/08/18 10:26> Attending Addendum - Attending Addendum Date/Time: 05/08/18 1420 I personally evaluated the patient and discussed the management with Dr. Marcos. I agree with and repeated the History, Examination, Assessment and Plan documented above with any addition or exceptions noted below. Patient remains intubated and sedated. Possibly prolonged mechanical ventilation 2/2 his underlying lung disease. Would consider switching from propofol to fent/versed. <Igor Wick - Last Filed: 05/08/18 14:21>
[2018-05-08] MEDS: Propofol 1,000 MG/100 ML VIAL IV PRN ×3 (06:45→23:58)
[2018-05-08 06:56] LABS: Actual Bicarbonate (HCO3a) 25.5 mEq/L (22-28); Base Excess (BEa) -1.8 mEq/L (-2.0 to +3.0); CO2 Tension 55.2 mmHg (35.0-45.0); Calcium, Ionized 1.26 mmol/L (1.12-1.30); Carboxyhemoglobin (COHb) 0.7 gm% (0.0-3.0); Hemoglobin (Hb) 11.5 g/dL (14.0-18.0); O2 Tension (PaO2) 102.8 mmHg (> 80.0); Potassium - ABG Lab 3.82 mmol/L (3.70-5.30); pH, Arterial 7.28 (7.35-7.45)
[2018-05-08 06:57] LABS: Puncture Site LRA
--- NOTE | 2018-05-08 07:54 | PRG ---
DATE OF SERVICE: 05/08/2018 Thirty-five minutes critical care time. The patient remains intubated on mechanical ventilation. He will wake up when sedation is lowered, b ut apparently will not open his eyes spontaneously. PHYSICAL EXAMINATION: VITAL SIGNS: On exam today his temperature is 98.0, pulse 99, blood pressure 140/65, O2 sat 100%, re spiratory rate 23, intake for 24 hours 3114, output 1865. HEENT: Unremarkable. NECK: No JVD. LUNGS: Diffuse expiratory wheezing. Peak pressure 33, plateau pressure 14. CARDIAC: S1 and S2 regular. ABDOMEN: Soft. EXTREMITIES: No edema. LABORATORY DATA: PH 7.28, pCO2 of 55, pO2 102 that is on SIMV rate 12, tidal volume 400, PEEP 5, pre ssure support 10, FiO2 30%. White blood cell count 12.5, hematocrit 28.6, platelet count 200. Sodiu m 144, potassium 4.3, chloride 112, CO2 30, BUN 17, creatinine 0.7, glucose 160. ASSESSMENT: 1. Status asthmaticus. 2. CO2 ____ ____ for acute respiratory failure requiring mechanical ventilation. His gas exchange i s actually worse today than it was yesterday. In my opinion, he is not a candidate for weaning at th is time. PLAN: 1. Add inhaled steroids and inhaled Brovana. 2. Continue IV steroids. 3. Continue IV antibiotics. 4. Continue bronchodilators, but discontinue the paralytic. 5. Continue enteral tube feeds.
--- NOTE | 2018-05-08 08:10 | RAD ---
CHEST 1 VIEW: COMPARISON: 05/06/2018. HISTORY: Respiratory distress. Intubated patient. FINDINGS: Endotracheal tube and nasogastric tube are noted. There is fullness in the AP window. Normal cardia c silhouette. Atherosclerosis of the aorta. Lungs are hyperinflated. Chronic changes are noted. N o consolidation or mass. No pneumothorax or osseous abnormalities. IMPRESSION: No significant interval change. POS: [facility]
[2018-05-08] MEDS: Famotidine 20 MG TAB PO SCH ×2 (09:05→20:38)
[2018-05-08] MEDS: Tamsulosin HCl 0.4 MG CAP PO SCH (09:05)
[2018-05-08] MEDS: Cefepime 2 GM in Sodium Chloride 0.9% 100 ML IVPB SCH ×2 (09:05→21:29)
[2018-05-08] MEDS: Finasteride 5 MG TAB PO SCH (09:05)
[2018-05-08] MEDS: Enoxaparin Sodium 40 MG/0.4 ML SYRINGE SC SCH (09:06)
[2018-05-08] MEDS: Sodium Chloride 0.45% 1,000 ML IV SCH (09:08)
--- NOTE | 2018-05-08 16:02 | EKG ---
Test Reason : Blood Pressure : / mmHG Vent. Rate : 104 BPM Atrial Rate : 104 BPM P-R Int : 244 ms QRS Dur : 110 ms QT Int : 376 ms P-R-T Axes : 000 069 266 degrees QTc Int : 494 ms Sinus tachycardia with 1st degree A-V block with Premature supraventricular complexes Abnormal ECG Confirmed by LAURA COVARRUBIAS DO ([id number]), book or script editor GABI FELIPE ([id number] on 05/08/2018 4:02:03 PM Referred By: Confirmed By:LAURA COVARRUBIAS DO
[2018-05-08] MEDS: Budesonide 0.5 MG/2 ML NEB INH SCH (18:26)
[2018-05-08] MEDS: Arformoterol 15 MCG/2 ML NEB NEB SCH (18:27)
[2018-05-08] MEDS: Lorazepam 2 MG/ML VIAL SLOW IVP PRN ×2 (18:50→23:52)
[2018-05-09] MEDS: Sodium Chloride 0.45% 1,000 ML IV SCH (05:41)
[2018-05-09 05:42] LABS: #Monocytes 0.9 thou/uL (0.11-0.59); #Neutrophils 8.2 thou/uL (1.40-6.50); %Eosinophils 0.1 % (0.0-10.0); %Lymphocytes 9.8 % (21.0-51.0); %Monocytes 9.2 % (0.0-10.0); %Neutrophils 80.9 % (42.0-75.0); Hemoglobin 9.3 g/dL (14.0-18.0); Mean Corpuscular HGB CONC 32.7 g/dL (32.0-36.0); Mean Corpuscular Hemoglobin 30.2 pg (27.0-31.0); Mean Corpuscular Volume 92.4 fL (78.0-98.0); Mean Platelet Volume 8.2 fL (7.4-10.4); Platelet Count 186 thou/uL (130-400); RBC Distribution Width 13.3 % (11.5-14.5); Red Blood Cell (RBC) Count 3.09 mill/uL (4.70-6.10); White Blood Cell (WBC) Count 10.1 thou/uL (4.8-10.8)
[2018-05-09 05:50] LABS: Anion Gap 7 mmol/L (10-20); BUN (Urea Nitrogen) 18 mg/dL (8.4-25.7); Calc. Creatinine Clearance 68 mL/min (70-130); Calcium 8.8 mg/dL (7.8-10.44); Carbon Dioxide 30 mmol/L (23-31); Chloride 107 mmol/L (98-107); Estimated GFR-MDRD Greater than 90; Glucose 192 mg/dL (80-115); Potassium 3.9 mmol/L (3.5-5.1); Sodium 140 mmol/L (136-145)
--- NOTE | 2018-05-09 06:16 | PDOC.FM ---
- Subjective Subjective: Elizabeth Mac seen at bedside this morning. He is sedated on mechanical ventilation. He had no acute events overnight. ROS unable to obtain due to sedation. Most recent ABG: pH 7.28, pCO2 55.2, pO2 102.8, awaiting todays Vent Settings: f 15, Vt 439, Psupp 10, PEEP 5.0, FiO2 30% Size 7.5 ET tube Day #5 Urinary Catheter Day #5 Right Midline Day #5 L pIV Day #6 OG tube Day #5 - Objective Vital Signs & Weight: Vital Signs (12 hours) Temp Pulse Resp Pulse Ox 05/09/18 02:49 69 15 100 05/09/18 02:00 15 05/09/18 00:00 98.1 F 15 05/08/18 22:07 60 05/08/18 22:06 63 15 100 05/08/18 22:00 15 05/08/18 20:00 98.1 F 15 100 05/08/18 18:28 73 05/08/18 18:27 77 25 H 98 05/08/18 18:26 80 26 H 100 Weight Admit Weight 46.295 kg Weight 46.295 kg Most Recent Monitor Data Heart Rate from ECG 65 NIBP 147/61 NIBP BP-Mean 89 Respiration from ECG 15 SpO2 99 I&O: 05/07/18 05/08/18 05/09/18 06:59 06:59 06:59 Intake Total 2976 3114 1524 Output Total 1610 1865 1230 Balance 1366 1249 294 Result Diagrams: 05/09/18 05:05 05/09/18 05:05 <Joshua Brenner - Last Filed: 05/09/18 07:38> - Objective Vital Signs & Weight: Vital Signs (12 hours) Temp Pulse Resp BP Pulse Ox 05/09/18 10:26 65 112/53 L 05/09/18 08:51 65 05/09/18 04:00 98.1 F 15 05/09/18 02:49 69 15 100 05/09/18 02:00 15 05/09/18 00:00 98.1 F 15 Weight Admit Weight 46.295 kg Weight 46.295 kg Most Recent Monitor Data Heart Rate from ECG 65 NIBP 147/61 NIBP BP-Mean 89 Respiration from ECG 15 SpO2 99 I&O: 11/05/09/18 05/10/18 06:59 06:59 06:59 Intake Total 3114 2730 Output Total 1865 1365 Balance 1249 1365 Result Diagrams: 05/09/18 05:05 05/09/18 05:05 <Ursula Yanes - Last Filed: 05/09/18 10:39> Phys Exam - Physical Examination Constitutional: NAD HEENT: moist MMs Neck: no JVD Respiratory: wheezing present ronchi and crackles present Cardiovascular: RRR, no significant murmur Gastrointestinal: soft, no distention Musculoskeletal: no edema, pulses present Lymphatic: no nodes Skin: no rash <Joshua Brenner - Last Filed: 05/09/18 07:38> Dx/Plan (1) Acute respiratory failure with hypoxemia Code(s): J96.01 - ACUTE RESPIRATORY FAILURE WITH HYPOXIA Status: Acute (2) HTN (hypertension) Code(s): I10 - ESSENTIAL (PRIMARY) HYPERTENSION Status: Chronic - Plan Plan: 1. Acute hypoxic respiratory failure 2/2 acute complicated COPD exacerbation: - Pt presented with tachypnea, dyspnea, hypoxia and clinical exam consistent with COPD exacerbation. 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 - Most recent ABG: pH 7.28, pCO2 55.2, pO2 102.8d - Continue cefipime, Day #6 - Procal was 0.03 - Continue aggressive Duonebs and steroids and abx - Dr. Summers consulted, pulmicort and brovanna added - Will likely need several days total on [facility] vent 2. HTN - Continue to hold amlodipine and continue to monitor BPs closely. - BPs were low initially but have started to rise, most recent was 147/61 - Continue to monitor closely, if continue to rise, will start prn IV antihypertensives 3. Normocytic anemia - Stable, continue to monitor. 4. 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 5. BPH - Continue home medications. 6. Positive fluid balance - +5L since admission, diffuse crackles on exam - todays xray pending - consider beginning gentle diuresis FULL code PPx: Lovenox for VTE, IV pepcid for GI ppx <Joshua Brenner - Last Filed: 05/09/18 07:38> Attending Addendum - Attending Addendum Date/Time: 05/09/18 1037 I personally evaluated the patient and discussed the management with Dr. Brenner. I agree with the History, Examination, Assessment and Plan documented above with any addition or exceptions noted below. The patient lung exam continues to have coarse breath sounds with inspiratory and expiratory wheezing. CXR reviewed and shows some clearing with clear costophrenic angles. Pt is volume up on I/O's though we do not hear crackles and there is no lower extremity edema. Will continue to monitor and he starts to become overloaded may require lasix. He was able to be taken off sedation for about 15 minutes per nurse, and was responsive. <Ursula Yanes - Last Filed: 05/09/18 10:39>
[2018-05-09] MEDS: Budesonide 0.5 MG/2 ML NEB INH SCH ×2 (07:24→18:39)
[2018-05-09] MEDS: Arformoterol 15 MCG/2 ML NEB NEB SCH ×2 (07:25→18:40)
[2018-05-09 09:08] LABS: Actual Bicarbonate (HCO3a) 28.7 mEq/L (22-28); Base Excess (BEa) 4.4 mEq/L (-2.0 to +3.0); CO2 Tension 41.4 mmHg (35.0-45.0); Calcium, Ionized 1.19 mmol/L (1.12-1.30); Carboxyhemoglobin (COHb) 0.7 gm% (0.0-3.0); Hemoglobin (Hb) 10.2 g/dL (14.0-18.0); O2 Tension (PaO2) 103.4 mmHg (> 80.0); Potassium - ABG Lab 3.67 mmol/L (3.70-5.30); pH, Arterial 7.46 (7.35-7.45)
[2018-05-09 09:10] LABS: Puncture Site RRA
[2018-05-09] MEDS: Tamsulosin HCl 0.4 MG CAP PO SCH (10:24)
[2018-05-09] MEDS: Cefepime 2 GM in Sodium Chloride 0.9% 100 ML IVPB SCH ×2 (10:24→21:20)
[2018-05-09] MEDS: Famotidine 20 MG TAB PO SCH ×2 (10:24→20:04)
[2018-05-09] MEDS: Enoxaparin Sodium 40 MG/0.4 ML SYRINGE SC SCH (10:24)
[2018-05-09] MEDS: Finasteride 5 MG TAB PO SCH (10:25)
[2018-05-09] MEDS: Amlodipine 5 MG TAB PO SCH (10:26)
[2018-05-09] MEDS: Lorazepam 2 MG/ML VIAL SLOW IVP PRN ×2 (10:37→23:28)
[2018-05-09] MEDS: Propofol 1,000 MG/100 ML VIAL IV PRN ×2 (10:42→22:39)
--- NOTE | 2018-05-09 10:52 | RAD ---
PORTABLE CHEST 1 VIEW: Date: 05/09/18 Time: 0730 hours HISTORY: Respiratory failure. FINDINGS/IMPRESSION: Comparison made with exam of previous day. Endotracheal and nasogastric tubes are again seen. The heart size is normal. The lungs are well expan ded. No lobar consolidation, pneumothoraces, or pleural effusions are seen. POS: [facility]
--- NOTE | 2018-05-09 13:49 | PRG ---
DATE OF SERVICE: 05/09/2018 SUBJECTIVE: This morning, he is sedated on the vent. OBJECTIVE: VITAL SIGNS: Blood pressure 147/61, sats 90%, respirations 18, off Diprivan. He sat up in the bed. CHEST: Prolonged expiration, bilateral wheezing. CARDIAC: Normal S1-S2. No gallops. ABDOMEN: No masses. LABORATORY: White count 10,000, H and H 9 and 28, pO2 is 103, pCO2 of 47, rate of 15.4, tidal volume . Electrolytes are normal. IMPRESSION: End-stage chronic obstructive pulmonary disease, respiratory failure, recurrent major an xiety. PLAN: Adjust vent. Continue nebs, steroids, empiric antibiotics. One-half hour critical care time.
[2018-05-10] MEDS: Sodium Chloride 0.45% 1,000 ML IV SCH ×2 (04:51→20:29)
[2018-05-10 05:28] LABS: #Neutrophils 9.9 thou/uL (1.40-6.50); %Basophils 0.2 % (0.0-1.0); %Eosinophils 0.2 % (0.0-10.0); %Monocytes 8.4 % (0.0-10.0); %Neutrophils 83.2 % (42.0-75.0); Mean Corpuscular HGB CONC 32.1 g/dL (32.0-36.0); Mean Corpuscular Hemoglobin 29.8 pg (27.0-31.0); Mean Corpuscular Volume 92.8 fL (78.0-98.0); Mean Platelet Volume 8.1 fL (7.4-10.4); Platelet Count 197 thou/uL (130-400); RBC Distribution Width 13.1 % (11.5-14.5); Red Blood Cell (RBC) Count 3.37 mill/uL (4.70-6.10); White Blood Cell (WBC) Count 11.9 thou/uL (4.8-10.8)
[2018-05-10 05:49] LABS: Anion Gap 9 mmol/L (10-20); BUN (Urea Nitrogen) 19 mg/dL (8.4-25.7); Calc. Creatinine Clearance 65 mL/min (70-130); Calcium 8.7 mg/dL (7.8-10.44); Carbon Dioxide 31 mmol/L (23-31); Chloride 106 mmol/L (98-107); Estimated GFR-MDRD Greater than 90; Glucose 171 mg/dL (80-115); Sodium 142 mmol/L (136-145)
--- NOTE | 2018-05-10 06:52 | PDOC.FM ---
- Subjective Subjective: Elizabeth Mac seen at bedside this morning. He is sedated on mechanical ventilation. He had no acute events overnight. ROS unable to obtain due to sedation. Most recent ABG: pH 7.46, pCO2 41.4, pO2 103.4 , awaiting todays Vent Settings: f 10, Vt 400, Psupp 15, PEEP 4.1, FiO2 30% Size 7.5 ET tube Day #6 Urinary Catheter Day #6 Right Midline Day #6 L pIV Day #7 OG tube Day #6 - Objective Vital Signs & Weight: Vital Signs (12 hours) Temp Pulse Resp Pulse Ox 05/10/18 04:00 98.5 F 15 05/10/18 02:16 67 05/10/18 02:15 75 13 100 05/10/18 02:00 13 05/10/18 00:00 13 05/09/18 22:00 70 15 100 05/09/18 20:00 99.0 F 13 100 Weight Admit Weight 46.295 kg Weight 46.295 kg Most Recent Monitor Data Heart Rate from ECG 80 NIBP 136/72 NIBP BP-Mean 93 Respiration from ECG 20 SpO2 100 I&O: 05/08/18 05/09/18 05/10/18 06:59 06:59 06:59 Intake Total 3114 2730 2453 Output Total 1865 1365 1640 Balance 1249 1365 813 Result Diagrams: 05/10/18 05:00 05/10/18 05:00 <Joshua Brenner - Last Filed: 05/10/18 07:41> - Objective Vital Signs & Weight: Vital Signs (12 hours) Temp Pulse Resp BP Pulse Ox 05/10/18 14:13 86 27 H 98 05/10/18 10:55 109 H 19 93 L 05/10/18 10:29 113 H 156/72 H 05/10/18 10:00 16 05/10/18 08:06 77 132/88 05/10/18 08:00 34 H 05/10/18 07:20 100 05/10/18 07:17 82 157/83 H 05/10/18 07:15 83 25 H 100 05/10/18 07:00 98.6 F 05/10/18 06:00 13 05/10/18 04:00 98.5 F 15 Weight Admit Weight 46.295 kg Weight 46.295 kg Most Recent Monitor Data Heart Rate from ECG 100 NIBP 154/80 NIBP BP-Mean 104 Respiration from ECG 27 SpO2 96 I&O: 05/09/18 05/10/18 05/11/18 06:59 06:59 06:59 Intake Total 2730 2453 175 Output Total 1365 1640 195 Balance 1365 813 -20 Result Diagrams: 05/10/18 05:00 05/10/18 05:00 <Ursula Yanes - Last Filed: 05/10/18 14:56> Phys Exam - Physical Examination Constitutional: NAD HEENT: moist MMs Neck: no JVD Respiratory: wheezing present Cardiovascular: RRR, no significant murmur Gastrointestinal: soft, no distention Musculoskeletal: no edema, pulses present Skin: normal turgor <Joshua Brenner - Last Filed: 05/10/18 07:41> Dx/Plan (1) Acute respiratory failure with hypoxemia Code(s): J96.01 - ACUTE RESPIRATORY FAILURE WITH HYPOXIA Status: Acute (2) HTN (hypertension) Code(s): I10 - ESSENTIAL (PRIMARY) HYPERTENSION Status: Chronic - Plan Plan: 1. Acute hypoxic respiratory failure 2/2 acute complicated COPD exacerbation: - Pt presented with tachypnea, dyspnea, hypoxia and clinical exam consistent with COPD exacerbation. 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 - monitor ABG daily - Continue cefipime, Day #7 - Procal was 0.03 - Continue aggressive Duonebs and steroids and abx - Dr. Summers consulted, pulmicort and brovanna added - Will likely need several days total on [facility] vent 2. HTN - Continue to hold amlodipine and continue to monitor BPs closely. - BPs were low initially but have started to rise - Continue to monitor closely, if continue to rise, will start prn IV antihypertensives 3. Normocytic anemia - Stable, continue to monitor. 4. 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 5. BPH - Continue home medications. 6. Positive fluid balance - +5.5L since admission - monitor daily cxr and ABG for fluid overload - consider beginning gentle diuresis FULL code PPx: Lovenox for VTE, IV pepcid for GI ppx Dispo[facility] <Joshua Brenner - Last Filed: 05/10/18 07:41> Attending Addendum - Attending Addendum Date/Time: 05/10/18 3105 I personally evaluated the patient and discussed the management with Dr. Brenner. I agree with the History, Examination, Assessment and Plan documented above with any addition or exceptions noted below. Patient remains on vent this morning. Weaning per pulmonology. Lungs are still coarse with wheezing. Nurse reports he does follow commands when sedation is weaned. <Ursula Yanes - Last Filed: 05/10/18 14:56>
[2018-05-10] MEDS: Budesonide 0.5 MG/2 ML NEB INH SCH ×2 (07:15→19:24)
[2018-05-10] MEDS: Arformoterol 15 MCG/2 ML NEB NEB SCH ×2 (07:16→19:25)
[2018-05-10 07:30] LABS: Actual Bicarbonate (HCO3a) 22.5 mEq/L (22-28); Calcium, Ionized 1.22 mmol/L (1.12-1.30); Carboxyhemoglobin (COHb) 1.3 gm% (0.0-3.0); Hemoglobin (Hb) 11.1 g/dL (14.0-18.0); O2 Tension (PaO2) 87.5 mmHg (> 80.0); Potassium - ABG Lab 4.05 mmol/L (3.70-5.30)
[2018-05-10] MEDS: Propofol 1,000 MG/100 ML VIAL IV PRN (08:06)
[2018-05-10] MEDS: Enoxaparin Sodium 40 MG/0.4 ML SYRINGE SC SCH (08:06)
[2018-05-10] MEDS: Amlodipine 5 MG TAB PO SCH (08:06)
[2018-05-10] MEDS: Famotidine 20 MG TAB PO SCH ×2 (08:06→20:29)
[2018-05-10] MEDS: Finasteride 5 MG TAB PO SCH (08:06)
[2018-05-10] MEDS: Tamsulosin HCl 0.4 MG CAP PO SCH (08:07)
[2018-05-10] MEDS: Cefepime 2 GM in Sodium Chloride 0.9% 100 ML IVPB SCH ×2 (10:03→21:21)
--- NOTE | 2018-05-10 12:59 | PRG ---
DATE OF SERVICE: 05/10/2018 SUBJECTIVE: This morning, he is intubated on the vent, sedated on Diprivan. OBJECTIVE: VITAL SIGNS: Pulse 87, blood pressure 148/82, sats are 90%, respirations 15. He appears to be less agitated. CHEST: Reveals decreased breath sounds. Wheezing is improved. Expiration is not as prolonged. His chest x-ray shows, otherwise, hyperinflation, nonspecific bilateral infiltrates. CARDIAC: Normal S1 and S2. No gallops. ABDOMEN: Soft. LABORATORY DATA: White count 11,000, hemoglobin and hematocrit 10 and 30. Electrolytes are normal. The pO2 of 87, pCO2 of rate of 10, 30%. IMPRESSION: End-stage chronic obstructive pulmonary disease, bronchitis, severe deconditioning and c achexia. PLAN: Hold sedation. Slow weaning. [id number] critical care time.
[2018-05-11] MEDS: Sodium Chloride 0.45% 1,000 ML IV SCH (04:01)
--- NOTE | 2018-05-11 06:35 | PDOC.FM ---
- Subjective Subjective: 67 yo M here with COPD exacerbation. Was extubated yesterday and generally doing well. Patient required BiPAP over night for about 3 hours due to O2 sat in low 90s, otherwise no events over night. Patient without complaint today. Complains of moderate SOB and non productive cough. No new symptoms. - Objective MAR Reviewed: Yes Vital Signs & Weight: Vital Signs (12 hours) Temp Pulse Resp Pulse Ox 05/11/18 04:00 98.5 F 18 98 05/11/18 02:40 87 20 100 05/11/18 01:31 75 23 H 100 05/11/18 00:00 98.8 F 05/10/18 21:59 76 18 100 05/10/18 20:00 97.9 F 99 05/10/18 19:25 105 H 21 H 99 05/10/18 19:24 97 24 H 100 Weight Admit Weight 46.295 kg Weight 49.9 kg Most Recent Monitor Data Heart Rate from ECG 69 NIBP 153/79 NIBP BP-Mean 103 Respiration from ECG 21 SpO2 99 I&O: 05/09/18 05/10/18 05/11/18 06:59 06:59 06:59 Intake Total 2730 2453 335 Output Total 1365 1640 1565 Balance 1365 813 -1230 Result Diagrams: 05/10/18 05:00 05/10/18 05:00 <Vinod Phillips - Last Filed: 05/11/18 06:33> - Objective Vital Signs & Weight: Vital Signs (12 hours) Temp Pulse Resp BP Pulse Ox 05/11/18 09:29 82 173/80 H 05/11/18 08:53 82 18 95 05/11/18 08:00 98.3 F 98 05/11/18 07:54 71 13 98 05/11/18 04:00 98.5 F 18 98 05/11/18 02:40 87 20 100 05/11/18 01:31 75 23 H 100 05/11/18 00:00 98.8 F Weight Admit Weight 46.295 kg Weight 49.9 kg Most Recent Monitor Data Heart Rate from ECG 87 NIBP 166/99 NIBP BP-Mean 121 Respiration from ECG 20 SpO2 98 I&O: 05/10/18 05/11/18 05/12/18 06:59 06:59 06:59 Intake Total 2453 470 180 Output Total 1640 1655 200 Balance 813 -1185 -20 Result Diagrams: 05/11/18 04:38 05/11/18 04:38 <Coby Girard - Last Filed: 05/11/18 10:41> Phys Exam - Physical Examination Constitutional: NAD HEENT: PERRLA, moist MMs, sclera anicteric Neck: no nodes, no JVD Wheezing and rhonchi throughout Cardiovascular: RRR, no significant murmur Gastrointestinal: soft, non-tender, no distention, positive bowel sounds Musculoskeletal: no edema Neurological: non-focal, normal sensation, moves all 4 limbs Lymphatic: no nodes Psychiatric: normal affect, A&O x 3 Skin: no rash <Vinod Phillips - Last Filed: 05/11/18 06:33> Dx/Plan (1) Acute exacerbation of chronic obstructive pulmonary disease (COPD) Code(s): J44.1 - CHRONIC OBSTRUCTIVE PULMONARY DISEASE W (ACUTE) EXACERBATION Status: Acute (2) Acute respiratory failure with hypoxemia Code(s): J96.01 - ACUTE RESPIRATORY FAILURE WITH HYPOXIA Status: Resolved (3) BPH (benign prostatic hyperplasia) Code(s): N40.0 - BENIGN PROSTATIC HYPERPLASIA WITHOUT LOWER URINRY TRACT SYMP Status: Chronic (4) GERD (gastroesophageal reflux disease) Code(s): K21.9 - GASTRO-ESOPHAGEAL REFLUX DISEASE WITHOUT ESOPHAGITIS Status: Chronic (5) HTN (hypertension) Code(s): I10 - ESSENTIAL (PRIMARY) HYPERTENSION Status: Chronic - Plan Plan: COPD exacerbation - patient doing well after extubation. Continue O2 by NC and wean as tolerated - Continue scheduled duonebs as patient has significant wheezing throughout. - Continue abx until resolution of exacerbation - patient will likely be ready to move to IM or tele this afternoon if he continues to do well HTN - Chronic. Pressures are elevated, however not to the extent that he needs PRN meds. Will continue home meds and follow up in outpatient setting GERD - continue PPI BPH - continue flomax Acute hypoxic respiratory failure, resolved Dispo: Patient doing well, however will likely need another few days of nebs and monitoring. Likely LOS >48 hours <Vinod Phillips - Last Filed: 05/11/18 06:33> Attending Addendum - Attending Addendum Date/Time: 05/11/18 1038 I personally evaluated the patient and discussed the management with Dr. Phillips I agree with the History, Examination, Assessment and Plan documented above with any addition or exceptions noted below- Patient sitting in chair at bedside. Tolerating diet. Denies any complaints. Afebrile VSS. 1) Acute on chronic hypoxic resp failure- resolved. 2) COPD exacerbation- continue nebs/ steroids/O2. 3) HTN- continue to monitor and adjust meds. . <Coby Girard - Last Filed: 05/11/18 10:41>
--- NOTE | 2018-05-11 07:49 | PRG ---
DATE OF SERVICE: 05/11/2018. SUBJECTIVE: He was extubated over the weekend. He is awake. He did use BiPAP last night between 1 and 5 a.m. He wants his Ramsey catheter out. OBJECTIVE: VITAL SIGNS: Temperature is 98.5, pulse 69, blood pressure 153/79, O2 saturation 99%. A 24- hour in take 2453, output 1640. His weight is 110 pounds. HEENT: Unremarkable. NECK: No JVD. LUNGS: He has very mild end expiratory wheeze. CARDIOVASCULAR: S1 and S2 regular. ABDOMEN: Soft, nontender. EXTREMITIES: No edema. LABORATORY DATA: No new labs were done today. ASSESSMENT: 1. Chronic obstructive pulmonary disease with exacerbation. 2. Status post respiratory failure requiring mechanical ventilation. PLAN: 1. Up in a chair as tolerated. 2. Discontinue Ramsey. 3. Start diet. 4. If he can stay off the BiPAP, then consider moving to the floor later. 5. Can switch IV antibiotics to oral antibiotics. 6. Begin weaning steroids.
[2018-05-11] MEDS: Budesonide 0.5 MG/2 ML NEB INH SCH ×2 (07:54→18:21)
[2018-05-11 07:59] LABS: Anion Gap 14 mmol/L (10-20); BUN (Urea Nitrogen) 21 mg/dL (8.4-25.7); Calc. Creatinine Clearance 72 mL/min (70-130); Calcium 8.9 mg/dL (7.8-10.44); Carbon Dioxide 26 mmol/L (23-31); Chloride 105 mmol/L (98-107); Estimated GFR-MDRD Greater than 90; Glucose 114 mg/dL (80-115); Potassium 4.1 mmol/L (3.5-5.1); Sodium 141 mmol/L (136-145)
[2018-05-11 08:03] LABS: Band 11 % (5-11); Hemoglobin 10.9 g/dL (14.0-18.0); Lymphocytes 14 % (21-51); MDiff Complete? YES; Mean Corpuscular HGB CONC 32.7 g/dL (32.0-36.0); Mean Corpuscular Hemoglobin 30.4 pg (27.0-31.0); Mean Corpuscular Volume 93.1 fL (78.0-98.0); Mean Platelet Volume 9.2 fL (7.4-10.4); Monocytes 11 % (0-10); Neutrophil 64 % (42-75); Platelet Count 177 thou/uL (130-400); RBC Distribution Width 13.1 % (11.5-14.5); Red Blood Cell (RBC) Count 3.59 mill/uL (4.70-6.10); White Blood Cell (WBC) Count 12.2 thou/uL (4.8-10.8)
[2018-05-11] MEDS: Arformoterol 15 MCG/2 ML NEB NEB SCH ×2 (08:53→18:22)
[2018-05-11] MEDS: Enoxaparin Sodium 40 MG/0.4 ML SYRINGE SC SCH (09:28)
[2018-05-11] MEDS: Tamsulosin HCl 0.4 MG CAP PO SCH (09:29)
[2018-05-11] MEDS: Cefdinir 300 MG CAP PO SCH (09:29)
[2018-05-11] MEDS: Amlodipine 5 MG TAB PO SCH (09:29)
[2018-05-11] MEDS: Famotidine 20 MG TAB PO SCH ×2 (09:30→20:13)
[2018-05-11] MEDS: Finasteride 5 MG TAB PO SCH (09:30)
[2018-05-12 04:59] LABS: Anion Gap 9 mmol/L (10-20); BUN (Urea Nitrogen) 22 mg/dL (8.4-25.7); Calc. Creatinine Clearance 70 mL/min (70-130); Calcium 9.1 mg/dL (7.8-10.44); Carbon Dioxide 33 mmol/L (23-31); Chloride 104 mmol/L (98-107); Estimated GFR-MDRD Greater than 90; Glucose 145 mg/dL (80-115); Potassium 3.9 mmol/L (3.5-5.1); Sodium 142 mmol/L (136-145)
[2018-05-12 05:09] LABS: Band 5 % (5-11); Hemoglobin 10.4 g/dL (14.0-18.0); Lymphocytes 12 % (21-51); MDiff Complete? YES; Mean Corpuscular HGB CONC 32.3 g/dL (32.0-36.0); Mean Corpuscular Hemoglobin 29.7 pg (27.0-31.0); Mean Corpuscular Volume 91.9 fL (78.0-98.0); Monocytes 12 % (0-10); Neutrophil 71 % (42-75); PLT Morphology Comment Appears Adequate; Platelet Count 219 thou/uL (130-400); RBC Distribution Width 13.2 % (11.5-14.5); White Blood Cell (WBC) Count 9.7 thou/uL (4.8-10.8)
--- NOTE | 2018-05-12 06:45 | PDOC.FM ---
- Subjective Subjective: 67 yo M here for COPD exacerbation. Patient was placed on BiPAP over night due to sats dropping to low 90s, otherwise there were no acute events. No concerns from nursing. No new complaints from patient. He sates that he is feeling well and breathing easier than on admission. - Objective MAR Reviewed: Yes Vital Signs & Weight: Vital Signs (12 hours) Temp Pulse Resp Pulse Ox 05/12/18 04:00 97.9 F 05/12/18 03:03 68 18 100 05/12/18 03:02 78 18 100 05/12/18 00:00 97.8 F 05/11/18 21:33 75 14 97 05/11/18 20:00 97.6 F 94 L Weight Admit Weight 46.295 kg Weight 50.8 kg Most Recent Monitor Data Heart Rate from ECG 111 NIBP 131/92 NIBP BP-Mean 105 Respiration from ECG 26 SpO2 98 I&O: 05/10/18 05/11/18 05/12/18 06:59 06:59 06:59 Intake Total 2453 470 800 Output Total 8883 4343 1050 Balance 813 -1185 -250 Result Diagrams: 05/12/18 04:29 05/12/18 04:29 <Vinod Phillips - Last Filed: 05/12/18 06:43> - Objective Vital Signs & Weight: Vital Signs (12 hours) Temp Pulse Pulse Pulse Resp BP BP 05/12/18 08:49 91 80 148/68 H 05/12/18 08:44 89 110/63 05/12/18 08:25 05/12/18 08:24 95 19 05/12/18 07:44 05/12/18 07:00 97.7 F 05/12/18 04:00 97.9 F 05/12/18 03:03 68 18 05/12/18 03:02 78 18 05/12/18 00:00 97.8 F BP Pulse Ox Pulse Ox Pulse Ox 05/12/18 08:49 148/64 H 100 100 05/12/18 08:44 05/12/18 08:25 99 05/12/18 08:24 99 05/12/18 07:44 99 05/12/18 07:00 05/12/18 04:00 05/12/18 03:03 100 05/12/18 03:02 100 05/12/18 00:00 Weight Admit Weight 46.295 kg Weight 50.8 kg Most Recent Monitor Data Heart Rate from ECG 70 NIBP 144/68 NIBP BP-Mean 93 Respiration from ECG 15 SpO2 100 I&O: 05/11/18 05/12/18 05/13/18 06:59 06:59 06:59 Intake Total 470 800 630 Output Total 1655 1050 1 Balance -1185 -249 629 Result Diagrams: 05/12/18 04:29 05/12/18 04:29 <Coby Girard - Last Filed: 05/12/18 10:52> Phys Exam - Physical Examination Constitutional: NAD HEENT: moist MMs, sclera anicteric Neck: no nodes Wheezing throughout Cardiovascular: RRR Gastrointestinal: soft, non-tender, no distention, positive bowel sounds Musculoskeletal: no edema Neurological: normal sensation, moves all 4 limbs Lymphatic: no nodes Psychiatric: normal affect, A&O x 3 Skin: no rash <Vinod Phillips - Last Filed: 05/12/18 06:43> Dx/Plan (1) Acute exacerbation of chronic obstructive pulmonary disease (COPD) Code(s): J44.1 - CHRONIC OBSTRUCTIVE PULMONARY DISEASE W (ACUTE) EXACERBATION Status: Acute (2) Acute respiratory failure with hypoxemia Code(s): J96.01 - ACUTE RESPIRATORY FAILURE WITH HYPOXIA Status: Resolved (3) BPH (benign prostatic hyperplasia) Code(s): N40.0 - BENIGN PROSTATIC HYPERPLASIA WITHOUT LOWER URINRY TRACT SYMP Status: Chronic (4) GERD (gastroesophageal reflux disease) Code(s): K21.9 - GASTRO-ESOPHAGEAL REFLUX DISEASE WITHOUT ESOPHAGITIS Status: Chronic (5) HTN (hypertension) Code(s): I10 - ESSENTIAL (PRIMARY) HYPERTENSION Status: Chronic - Plan Plan: COPD exacerbation - Continue O2 by NC and wean as tolerated, yesterday when awake he was able to be moved to 2L from 3L. He apparently only needs BiPAP at night. - Continue scheduled duonebsm wheezing is slowly improving. He is moving more air than yesterday. - patient ready to move to [facility] HTN - Chronic. Pressure was more controlled yesterday. Continue home meds GERD - continue PPI BPH - continue flomax Acute hypoxic respiratory failure, resolved Dispo: Patient doing well, however will likely need another few days of nebs and monitoring. Likely LOS >48 hours <Vinod Phillips - Last Filed: 05/12/18 06:43> Attending Addendum - Attending Addendum Date/Time: 05/12/18 1050 I personally evaluated the patient and discussed the management with Dr. Phillips I agree with the History, Examination, Assessment and Plan documented above with any addition or exceptions noted below- Patient sitting up in chair. Denies any complaints. Ambulating in room. Tolerating diet. Afebrile VSS. A/P: 1 ) Acute on chronic resp hypoxic hypercapneic resp failure due to COPD- resolved. 2) COPD exacerbation- weaned off O2; continue nebs; transition to po steroids. Transfer to floor.. <Coby Girard - Last Filed: 05/12/18 10:52>
--- NOTE | 2018-05-12 08:05 | PRG ---
DATE OF SERVICE: 05/12/2018 Mr. Johnson is up in a chair eating breakfast. He appears comfortable. He did use BiPAP last night. He says it helps him sleep better. PHYSICAL EXAMINATION: VITAL SIGNS: Temperature 97.7, pulse 82, blood pressure 161/95, O2 saturation 99%. HEENT: Unremarkable. NECK: No adenopathy or JVD. CHEST: Clear without wheezing. CARDIAC: S1 and S2 regular. ABDOMEN: Soft. EXTREMITIES: No edema. LABORATORY DATA: Sodium 140, potassium 3.9, chloride 104, CO2 33, BUN 22, creatinine 0.7, glucose 14 5. White blood cell count 9.7, hematocrit 32.1, platelet count 219. ASSESSMENT: Status post acute respiratory failure related to chronic obstructive pulmonary disease e xacerbation. PLAN: 1. Stop the nightly BiPAP. 2. Transfer to the floor. 3. Change to oral steroids. 4. Increase activity as tolerated with hopeful discharge in the next day or two.
[2018-05-12] MEDS ORDERED: EPINEPHrine 1 MG/10 ML Abboject SYRINGE ONE (08:11)
[2018-05-12] MEDS ORDERED: EPINEPHrine 1 MG/ML AMP ONE (08:12)
[2018-05-12] MEDS: Arformoterol 15 MCG/2 ML NEB NEB SCH ×2 (08:24→18:33)
[2018-05-12] MEDS: Budesonide 0.5 MG/2 ML NEB INH SCH ×2 (08:25→18:33)
[2018-05-12] MEDS: Cefdinir 300 MG CAP PO SCH (08:44)
[2018-05-12] MEDS: Amlodipine 5 MG TAB PO SCH (08:44)
[2018-05-12] MEDS: Tamsulosin HCl 0.4 MG CAP PO SCH (08:45)
[2018-05-12] MEDS: Famotidine 20 MG TAB PO SCH ×2 (08:45→20:55)
[2018-05-12] MEDS: Finasteride 5 MG TAB PO SCH (08:45)
[2018-05-12] MEDS: predniSONE 20 MG TAB PO SCH (08:45)
[2018-05-12] MEDS: Enoxaparin Sodium 40 MG/0.4 ML SYRINGE SC SCH (08:46)
--- NOTE | 2018-05-13 07:01 | PDOC.FM ---
- Subjective Subjective: 67 yo M here with COPD exacerbation. Sitting up watching TV, in no acute distress. Denies continued cough or SOB. No acute events over night. - Objective MAR Reviewed: Yes Vital Signs & Weight: Vital Signs (12 hours) Temp Pulse Resp BP Pulse Ox 05/13/18 03:53 98.3 F 66 18 120/50 L 99 05/13/18 02:25 64 12 99 05/12/18 23:44 98.7 F 74 16 104/58 L 100 05/12/18 22:17 74 16 100 05/12/18 20:00 98 05/12/18 19:41 99.1 F 90 16 128/63 98 Weight Admit Weight 46.295 kg Weight 50.944 kg Most Recent Monitor Data Heart Rate from ECG 70 NIBP 144/68 NIBP BP-Mean 93 Respiration from ECG 15 SpO2 100 I&O: 05/11/18 05/12/18 05/13/18 06:59 06:59 06:59 Intake Total 111 002 7467 Output Total 1655 1050 401 Balance -1185 -250 949 Result Diagrams: 05/12/18 04:29 05/12/18 04:29 Phys Exam - Physical Examination Constitutional: NAD HEENT: moist MMs, sclera anicteric Neck: no nodes Respiratory: clear to auscultation bilateral Cardiovascular: RRR, no significant murmur Gastrointestinal: soft, non-tender, no distention, positive bowel sounds Musculoskeletal: no edema Neurological: moves all 4 limbs Psychiatric: normal affect, A&O x 3 Skin: no rash Dx/Plan (1) Acute exacerbation of chronic obstructive pulmonary disease (COPD) Code(s): J44.1 - CHRONIC OBSTRUCTIVE PULMONARY DISEASE W (ACUTE) EXACERBATION Status: Acute (2) Acute respiratory failure with hypoxemia Code(s): J96.01 - ACUTE RESPIRATORY FAILURE WITH HYPOXIA Status: Resolved (3) BPH (benign prostatic hyperplasia) Code(s): N40.0 - BENIGN PROSTATIC HYPERPLASIA WITHOUT LOWER URINRY TRACT SYMP Status: Chronic (4) GERD (gastroesophageal reflux disease) Code(s): K21.9 - GASTRO-ESOPHAGEAL REFLUX DISEASE WITHOUT ESOPHAGITIS Status: Chronic (5) HTN (hypertension) Code(s): I10 - ESSENTIAL (PRIMARY) HYPERTENSION Status: Chronic - Plan Plan: COPD exacerbation - Patient doing much better. No longer needing O2, lungs sound much better. - Will recommend repeat LFT in outpatient setting and consideration of addition of LAMA to meds HTN - Controlled. Continue home meds GERD - continue PPI BPH - continue flomax Acute hypoxic respiratory failure, resolved Dispo: Patient doing much better likely ready for DC today assuming no issues this am
[2018-05-13] MEDS: Budesonide 0.5 MG/2 ML NEB INH SCH (07:58)
[2018-05-13] MEDS: Arformoterol 15 MCG/2 ML NEB NEB SCH (07:58)
--- NOTE | 2018-05-13 08:52 | PRG ---
DATE OF SERVICE: 05/13/2018 SUBJECTIVE: The patient feels fine and wants to go home. OBJECTIVE: VITAL SIGNS: On exam, temperature is 98.3, pulse 87, respirations 18, O2 sat 97% on room air, blood pressure 135/58. HEENT: Unremarkable. NECK: No JVD. LUNGS: No wheezing. CARDIAC: S1 and S2, regular. ABDOMEN: Soft. EXTREMITIES: No edema. ASSESSMENT: 1. Chronic obstructive pulmonary disease with exacerbation. 2. Status post acute respiratory failure. PLAN: He is stable to go home. He should be weaned off of his prednisone over a period of 2 weeks. Finish up a total of 1 week of antibiotics. He needs to be on a long-acting beta agonist and inhale d corticosteroid as well as access to nebulized ipratropium and albuterol. He has been told not to s moke.
[2018-05-13] MEDS: Finasteride 5 MG TAB PO SCH (08:59)
[2018-05-13] MEDS: Famotidine 20 MG TAB PO SCH (08:59)
[2018-05-13] MEDS: predniSONE 20 MG TAB PO SCH (09:00)
[2018-05-13] MEDS: Enoxaparin Sodium 40 MG/0.4 ML SYRINGE SC SCH (09:00)
[2018-05-13] MEDS: Tamsulosin HCl 0.4 MG CAP PO SCH (09:00)
[2018-05-13] MEDS: Cefdinir 300 MG CAP PO SCH (09:00)
[2018-05-13] MEDS: Amlodipine 5 MG TAB PO SCH (09:00)
[2018-05-13 11:00] VITALS: BMI 18.1
[2018-05-13 11:35] VITALS: BP 122/63
[2018-05-13 11:58] VITALS: TEMP 98.4
--- NOTE | 2018-05-13 14:45 | DIS-2 ---
DATE OF ADMISSION: 05/04/2018 DATE OF DISCHARGE: 05/13/2018 ADMITTING ATTENDING: Coby Girard M.D. DISCHARGE ATTENDING: Coby Girard M.D. RESIDENT: Vinod Phillips DO. CONSULTATIONS: Rl Summers M.D, Critical Care. PROCEDURES: Chest x-ray on 05/04/2018 with finding of pulmonary vascular congestion, otherwise unrem arkable AP. Chest x-ray on 05/05/2018, stable changes of COPD with intubation and gastric catheter i n place. Chest x-ray on 05/06/2018, stable. No interval change. Chest x-ray on 05/08/2018, stable. No interval change. Chest x-ray on 05/09/2018, stable. No interval change. Endotracheal intubati on on 05/04/2018, extubation on 05/10/2018. DISCHARGE MEDICATIONS: Albuterol sulfate 2.5 mg per 3 ml vial, 1 unit inhaled q.8 hour p.r.n. shortn ess of breath, finasteride 5 mg p.o. daily, Flomax 0.4 mg p.o. daily, Norvasc 5 mg p.o. daily, Pepcid 20 mg p.o. b.i.d., Guaifenesin ER 600 mg p.o. q.12 hours, DuoNeb 3 mg nebulized q.4 hour p.r.n. shor tness of breath and Dulera 200 mcg/5 mcg two puffs inhaled b.i.d. DISCONTINUED MEDICATIONS: Prednisone 20 mg p.o. b.i.d. with meals. ADMITTING DIAGNOSES: 1. Acute hypoxic respiratory failure. 2. Acute exacerbation of chronic obstructive pulmonary disease. 3. Hypertension. 4. Gastroesophageal reflux disease. 5. Benign prostatic hypertrophy. 6. Protein calorie malnutrition. 7. Tobacco abuse. HOSPITAL COURSE: This is a 67-year-old male who initially presented through the emergency room with complaint of shortness of breath. He arrived via EMS from home and was placed on BiPAP due to oxygen sats in the high 80s. The patient had a significant increased work of breathing and was unable to s peak more than two words and then was intubated in the emergency room. The patient was started on in travenous steroids and inhaled DuoNeb over the course of the next week, slowly improved and was able to be extubated on 05/10/2018. The patient did well after extubation and improved quickly and was tr ansitioned to p.o. medications on 05/12/2018. Additionally by 05/12/2018, he had no more oxygen anusha nd and was satting in the high 90s after walking on room air. There is a significant amount of time spent in discussing with the patient about tobacco cessation. The patient states that he will attemp t to quit smoking as he knows that this is causing the COPD exacerbation. Otherwise, hospital course was fairly uncomplicated. There was a period of time where his blood pressure was difficult to cont rol; however, after starting his home medications, it quickly became controlled. This was no longer a problem. The patient will be discharged home on his home medications with the recommendation of re peating pulmonary function test in the outpatient setting and a revision of potentially starting inha led LAMA medication, pending results of the PFT. DISCHARGE INSTRUCTIONS: 1. Location: Home. 2. Diet: Regular. 3. Activity: ad alfreda. 4. Followup: With PCP, Dr. Almaguer within 1 week.
== END 2018-05-13 17:47 | disposition home or self-care (01) | DRG 207 ==
LOC: ERS 16:27 → ERHOLD 19:21 → IMCU/EMU 21:15 → CCU 05-05 03:19 → IMCU/EMU 05-12 11:20
PROVIDERS: ADMIT Family Medicine; ATTEND Family Medicine
PROC: 5A1955Z Respiratory Ventilation, Greater than 96 Consecutive Hours (ICD-10-PCS; principal; 2018-05-05)
PROC: 0BH17EZ Insertion of Endotracheal Airway into Trachea, Via Natural or Artificial Opening (ICD-10-PCS; 2018-05-05)
PROC: 0B9M7ZX Drainage of Bilateral Lungs, Via Natural or Artificial Opening, Diagnostic (ICD-10-PCS; 2018-05-05)
DX: J96.01 Acute respiratory failure with hypoxia (principal); Z68.1 Body mass index [BMI] 19.9 or less, adult; J44.1 Chronic obstructive pulmonary disease with (acute) exacerbation; E44.0 Moderate protein-calorie malnutrition; R64 Cachexia; K21.9 Gastro-esophageal reflux disease without esophagitis; I10 Essential (primary) hypertension; N40.0 Benign prostatic hyperplasia without lower urinary tract symptoms; F17.210 Nicotine dependence, cigarettes, uncomplicated; D64.9 Anemia, unspecified; F41.9 Anxiety disorder, unspecified
CPT/HCPCS: 36415; 71045; 80048; 80053; 82553; 82805; 83880; 84145; 84484; 85025; 87070; 87205; 93005; 94002; 94003; 94640; 94644; 94660; 96365; 96375; A4216; G8978-GP-CL; G8979-GP-CJ; G8996-GN-CI; G8997-GN-CH; J0171; J0456; J0692; J1650; J2060; J2250; J2270; J2704; J2920; J2930; J7050; J7120; J7506; J7611; J7620; J7626

== ENCOUNTER 2018-06-26 15:35 | Inpatient (IN) | payer MEDICARE, MEDICAID ==
[2018-06-26] MEDS ORDERED: Albuterol Sulfate 2.5 mg/3 ml Neb ONE (15:52)
[2018-06-26] MEDS ORDERED: Albuterol Sulfate 2.5 mg/0.5 ml Neb ONE (15:52)
[2018-06-26] MEDS ORDERED: Dexamethasone 4 mg/ml Vial ONE (15:55)
[2018-06-26] MEDS ORDERED: Magnesium 2 GM/50 ML BAG (IN WATER) ONE (15:55)
[2018-06-26 16:17] LABS: Actual Bicarbonate (HCO3a) 22.9 mEq/L (22-28); Analyzer IN Cardio ER; Base Excess (BEa) -1.8 mEq/L (-2.0 to +3.0); Carboxyhemoglobin (COHb) 0.9 gm% (0.0-3.0); Hemoglobin (Hb) 11.7 g/dL (14.0-18.0); O2 Tension (PaO2) 86.4 mmHg (> 80.0); Potassium - ABG Lab 3.65 mmol/L (3.70-5.30); pH, Arterial 7.39 (7.35-7.45)
[2018-06-26 16:18] LABS: Puncture Site LRA
[2018-06-26 16:37] LABS: #Lymphocytes 1.6 thou/uL (1.20-3.40); #Monocytes 1.3 thou/uL (0.11-0.59); %Basophils 0.5 % (0.0-1.0); %Eosinophils 0.5 % (0.0-10.0); %Lymphocytes 18.2 % (21.0-51.0); %Monocytes 14.1 % (0.0-10.0); %Neutrophils 66.8 % (42.0-75.0); Hemoglobin 11.4 g/dL (14.0-18.0); Mean Corpuscular HGB CONC 33.7 g/dL (32.0-36.0); Mean Corpuscular Volume 91.8 fL (78.0-98.0); Mean Platelet Volume 7.6 fL (7.4-10.4); Platelet Count 199 thou/uL (130-400); RBC Distribution Width 13.6 % (11.5-14.5); Red Blood Cell (RBC) Count 3.67 mill/uL (4.70-6.10); White Blood Cell (WBC) Count 8.9 thou/uL (4.8-10.8)
--- NOTE | 2018-06-26 16:54 | RAD ---
ONE VIEW CHEST: 06/26/18 HISTORY: Dyspnea. COMPARISON: 01/06/18. FINDINGS: Normal cardiac silhouette. The pulmonary vessels and hilum are normal. Costophrenic angles are clear. Lungs are hyperinflated, without consolidation, or mass. There is no pneumothorax or osseous abnorma lities. Incidental atherosclerosis of the aorta is noted. IMPRESSION: Hyperinflation. Chronic changes. POS: [facility]
[2018-06-26 17:07] LABS: ALT (SGPT) 7 U/L (8-55); AST (SGOT) 19 U/L (5-34); Albumin 4.3 g/dL (3.4-4.8); Alkaline Phosphatase 75 U/L (40-150); Anion Gap 14 mmol/L (10-20); BUN (Urea Nitrogen) 10 mg/dL (8.4-25.7); Bilirubin, Total 1.4 mg/dL (0.2-1.2); CK (CPK) 157 U/L (30-200); Calc. Creatinine Clearance 0 mL/min (70-130); Calcium 9.8 mg/dL (7.8-10.44); Carbon Dioxide 24 mmol/L (23-31); Chloride 103 mmol/L (98-107); Estimated GFR-MDRD Greater than 90; Globulin 3.2 g/dL (2.4-3.5); Glucose 96 mg/dL (80-115); Lipase 4 U/L (8-78); Protein, Total 7.5 g/dL (5.8-8.1); Sodium 137 mmol/L (136-145)
--- NOTE | 2018-06-26 21:04 | PDOC.FPRHP ---
- History of Present Illness Chief Complaint: SOB History of Present Illness: This is a 68 yo male with a pmh of COPD, GERD, BPH who presents to the ed with a cc of SOB. He states that the SOB started last night while he was at rest. He denies any inciting event and reports an increase cough. He denies changes in sputum production or quality. He reports associated orthopnea and intermittent lightheadedness. He denies chest pain but says his chest feels tight. He also reports using 3 albuterol nebulizer treatments prior to calling EMS. He denies using oxygen at home. He denies fever, chills, nausea, vomiting, or syncope. He was recently hospitalized and intubated at that time. He reports feeling better at this time than his previous hospitalization. PCP: Dr. Almagure ED Course: Albuterol neb x 3 Duoneb x 3 magnesium decadron - Allergies/Adverse Reactions Allergies Allergy/AdvReac Type Severity Reaction Status Date / Time lisinopril Allergy Severe Swollen Verified 05/04/18 22:39 Lips - Home Medications Medication Instructions Recorded Confirmed Type Albuterol Sulfate [Albuterol 1 unit INH Q8HR #90 vial 05/29/16 06/26/18 Rx Sulfate Neb] Amlodipine [Norvasc] 5 mg PO DAILY 10/05/17 06/26/18 History Finasteride [Proscar] 5 mg PO DAILY 10/05/17 06/26/18 History Tamsulosin HCl [Flomax] 0.4 mg PO DAILY 10/05/17 06/26/18 History Ipratropium/Albuterol Sulfate 3 ml NEB Q4HR #120 neb 01/12/18 06/26/18 Rx [DuoNeb] Mometasone/Formoterol 200/5 2 puff INH BID #7 aer 01/12/18 06/26/18 Rx [Dulera 200 Mcg/5 Mcg Inhaler] - History PMHx: COPD, HTN, GERD, BPH, protein calorie malnutrition PSHx: None FHx: Noncontributory Social: Significant smoking history, unable to quantify, denies alcohol or drugs - Review of Systems General: reports: fatigue. denies: fever/chills, weight/appetite/sleep changes Eyes: denies: eye pain, vision changes ENT: denies: nasal congestion, rhinorrhea Respiratory: reports: cough, shortness of breath, exercise intolerance. denies : congestion Cardiovascular: reports: chest pain (tightness), orthopnea. denies: palpitation , edema Gastrointestinal: denies: nausea, vomiting, diarrhea, constipation Genitourinary: denies: incontinence, dysuria Skin: denies: rashes, lesions Musculoskeletal: denies: pain, tenderness Neurological: denies: numbness, syncope Psychological: denies: anxiety, depression - Vital signs BP: 149/76 HR: 103 RR: 24 Tmax: 97.9 Pox: 100% on 2L Wt: 47.1 kg - Physical Exam Constitutional: NAD, awake, alert and oriented, other (cachectic) HEENT: normocephalic and atraumatic, MMM Neck: supple, trachea midline Chest: no-tender to palpation, no lesions Heart: RRR, normal S1/S2, no murmurs/rubs/gallops Lungs: no respiratory distress, other (Wheezing in all lung guo, talking in complete sentences) Abdomen: soft, non-tender, bowel sounds present Musculoskeletal: normal tone Neurological: CN II-XII intact Skin: good turgor, capillary refill <2 seconds Psychiatric: normal mood and affect, good judgment and insight FMR H&P: Results - Labs Result Diagrams: 06/27/18 06:14 06/27/18 06:14 Lab results: WBC 8.9 thou/uL (4.8-10.8) 06/26/18 16:20 Hgb 11.4 g/dL (14.0-18.0) L 06/26/18 16:20 Hct 33.7 % (42.0-52.0) L 06/26/18 16:20 MCV 91.8 fL (78.0-98.0) 06/26/18 16:20 Plt Count 199 thou/uL (130-400) 06/26/18 16:20 Neutrophils % 66.8 % (42.0-75.0) 06/26/18 16:20 ABG pH 7.39 (7.35-7.45) 06/26/18 15:52 ABG pCO2 39.0 mmHg (35.0-45.0) 06/26/18 15:52 ABG pO2 86.4 mmHg (> 80.0) H 06/26/18 15:52 Sodium 137 mmol/L (136-145) 06/26/18 16:20 Potassium 4.0 mmol/L (3.5-5.1) 06/26/18 16:20 Chloride 103 mmol/L (98-107) 06/26/18 16:20 Carbon Dioxide 24 mmol/L (23-31) 06/26/18 16:20 BUN 10 mg/dL (8.4-25.7) 06/26/18 16:20 Creatinine 0.85 mg/dL (0.7-1.3) 06/26/18 16:20 Glucose 96 mg/dL (80-115) 06/26/18 16:20 Calcium 9.8 mg/dL (7.8-10.44) 06/26/18 16:20 Total Bilirubin 1.4 mg/dL (0.2-1.2) H 06/26/18 16:20 AST 19 U/L (5-34) 06/26/18 16:20 ALT 7 U/L (8-55) L 06/26/18 16:20 Alkaline Phosphatase 75 U/L (40-150) 06/26/18 16:20 Creatine Kinase 157 U/L (30-200) 06/26/18 16:20 B-Natriuretic Peptide 168.1 pg/mL (0-100) H 06/26/18 16:20 Serum Total Protein 7.5 g/dL (5.8-8.1) 06/26/18 16:20 Albumin 4.3 g/dL (3.4-4.8) 06/26/18 16:20 Lipase 4 U/L (8-78) L 06/26/18 16:20 - Radiology Interpretation Chest x-ray Status: report reviewed by me (Hyper inflation) FMR H&P: A/P - Problem List (1) Acute exacerbation of chronic obstructive pulmonary disease (COPD) Current Visit: No Status: Acute Code(s): J44.1 - CHRONIC OBSTRUCTIVE PULMONARY DISEASE W (ACUTE) EXACERBATION Comment: (2) GERD (gastroesophageal reflux disease) Current Visit: No Status: Chronic Code(s): K21.9 - GASTRO-ESOPHAGEAL REFLUX DISEASE WITHOUT ESOPHAGITIS (3) HTN (hypertension) Current Visit: No Status: Chronic Code(s): I10 - ESSENTIAL (PRIMARY) HYPERTENSION (4) BPH (benign prostatic hyperplasia) Current Visit: No Status: Chronic Code(s): N40.0 - BENIGN PROSTATIC HYPERPLASIA WITHOUT LOWER URINRY TRACT SYMP (5) Protein-calorie malnutrition, moderate Current Visit: No Status: Chronic Code(s): E44.0 - MODERATE PROTEIN-CALORIE MALNUTRITION - Plan This is a 68 yo male with a pmh of COPD, GERD, BPH COPD exacerpation -Admit to medical -Scheduled and PRN duonebs -Oral prednisone -Doxycycline -CXR shows hyperinflation and chronic changes -Pending procal and flu, adjust medications based on findings -ABG shows pH of 7.39, pCO2 of 39, pO2 of 86.4 -Maintain pO2 sats above 88 and below 98 HTN -Continue home meds GERD -Continue home meds BPH -Continue home meds Protein calorie malnutrition -Initiate supplementation -Regular diet Code: full Prophylaxis: SCDs Family: none at bedside Disposition: home in 1-2 days FMR H&P: Upper Level - Pertinent history 68AAM p/w SOB. He endorses a one day history of difficulty breathing associated with a frequent non productive cough. Patient has severe COPD exacerbated by tobacco abuse. He was hospitalized in April and required endotracheal intubation for 6 days due to acute hypoxic respiratory failure 2/2 to COPD. He denies any fevers, chills, n/v/d, skin rash, headaches, chest pain, palpitations. He denies any sick contacts at home. He is able to speak to me in full sentences and is resting comfortably in the bed. He is in no respiratory distress at this time. Patient administered 4 Duonebs HAND EDGER by EMS and received another one in route. Upon evaluation in ED, he received another Duoneb and one albuterol neb as well as one liter of NS, decadron 10mg, magnesium 50mL, and levaquin 750mg. - Pertinent findings Gen: A&Ox3; in no respiratory distress; cachectic CV: RRR; no murmurs Pulm: inspiratory and expiratory wheezing; no rales or rhonchi Abd: soft; non tender to palpation; non distended CXR: hyperinflation consistent with prior studies; non acute pathology H/H: 11.4/33.7 BMP all normal Tbili: 1.4 (baseline) AB.39/39/86 - Plan Date/Time: 06/26/182103 I, Shay Marquez, have evaluated this patient and agree with findings/plan as outlined by agribusiness internship resident. Pertinent changes/additions are listed here. COPD exacerbation likely 2/2 tobacco abuse Patient with history of severe COPD requiring multiple hospitalizations per year a well as intubation. He has limited his smoking, but admits to smoking 6 cigarettes yesterday. He is maintaining O2 saturation on 2L via NC. ABG is normal with no evidence of hypoxia or hypercapnea. Influenza swab pending to rule out possible etiology. Continue Duonebs q4h ANAT and q2h PRN. He is s/p steroids in the ED and we will continue prednisone daily. We will also continue antibiotics but switch to doxycycline. Close monitoring to assess need for NIPPV. Maintain oxygen saturations between 90-93% Anemia of chronic disease Appears to be at baseline per chart review of prior hospitalizations Addendum - Attending - Attending Attestation Date/Time: 06/27/18 4005 I personally evaluated the patient and discussed the management with Dr. Hirsch /Jimmy I agree with the History, Examination, Assessment and Plan documented above with any addition or exceptions noted below.
[2018-06-26] MEDS ORDERED: Ondansetron PF 4 MG/2 ML Vial IVP PRN (21:44)
[2018-06-26] MEDS ORDERED: Sodium Chloride 0.9% 1,000 ML IV SCH (21:44)
[2018-06-26] MEDS ORDERED: Ondansetron ODT 4 MG TAB SL PRN (21:44)
[2018-06-26] MEDS ORDERED: Acetaminophen 325 MG TAB PO PRN (22:09)
[2018-06-26] MEDS ORDERED: Ondansetron ODT 4 MG TAB PO PRN (22:09)
[2018-06-26 22:12] VITALS: BMI 15.7
[2018-06-26] MEDS ORDERED: Doxycycline 100 MG CAP PO SCH (22:30)
--- NOTE | 2018-06-27 06:33 | PDOC.FM ---
- Subjective Subjective: NAEO. On exam this AM patient was off of O2 resting comfortably in no distress. States his SOB was much improved and denied any fever or chills. - Objective MAR Reviewed: Yes Vital Signs & Weight: Vital Signs (12 hours) Temp Pulse Resp BP BP Pulse Ox 06/27/18 06:19 88 24 H 97 06/27/18 04:15 98.1 F 88 20 119/69 94 L 06/27/18 02:35 90 18 95 06/27/18 00:00 98.1 F 92 20 134/64 96 06/26/18 23:28 93 15 99 06/26/18 21:40 97.9 F 99 21 H 129/72 97 Weight Weight 44.452 kg Result Diagrams: 06/27/18 06:14 06/27/18 06:14 Phys Exam - Physical Examination Constitutional: NAD HEENT: moist MMs Neck: supple, full ROM Respiratory: wheezing present Coarse breath sounds throughout with minimal end-expiratory wheezing Cardiovascular: RRR, no significant murmur Gastrointestinal: no distention, positive bowel sounds Neurological: non-focal, moves all 4 limbs Psychiatric: normal affect, A&O x 3 Skin: no rash, normal turgor Dx/Plan (1) Acute exacerbation of chronic obstructive pulmonary disease (COPD) Code(s): J44.1 - CHRONIC OBSTRUCTIVE PULMONARY DISEASE W (ACUTE) EXACERBATION Status: Acute (2) BPH (benign prostatic hyperplasia) Code(s): N40.0 - BENIGN PROSTATIC HYPERPLASIA WITHOUT LOWER URINRY TRACT SYMP Status: Chronic (3) GERD (gastroesophageal reflux disease) Code(s): K21.9 - GASTRO-ESOPHAGEAL REFLUX DISEASE WITHOUT ESOPHAGITIS Status: Chronic (4) HTN (hypertension) Code(s): I10 - ESSENTIAL (PRIMARY) HYPERTENSION Status: Chronic (5) Protein-calorie malnutrition, moderate Code(s): E44.0 - MODERATE PROTEIN-CALORIE MALNUTRITION Status: Chronic (6) Tobacco abuse disorder Code(s): Z72.0 - TOBACCO USE Status: Chronic (7) Acute respiratory failure with hypoxemia Code(s): J96.01 - ACUTE RESPIRATORY FAILURE WITH HYPOXIA Status: Resolved - Plan Plan: This is a 68 yo male with a pmh of COPD, GERD, BPH who presented in an acute on chronic COPD exacerbation. COPD exacerbation - Will continue Scheduled and PRN duonebs & wean as tolerated by the patient. - Will continue Oral prednisone & Doxycycline to help decrease inflammation. - CXR showed hyperinflation and chronic changes -Pending procal and flu, adjust medications based on findings -ABG shows pH of 7.39, pCO2 of 39, pO2 of 86.4 - Will continue supplemental O2 PRN to maintain pO2 sats above 88 and below 98. HTN -Continue home meds GERD -Continue home meds BPH -Continue home meds Protein calorie malnutrition - Will initiate supplementation - HH diet. Code: full Prophylaxis: SCDs Family: none at bedside Disposition: home in 1-2 days Addendum - Attending - Attending Attestation Date/Time: 06/27/18 1002 I personally evaluated the patient and discussed the management with Dr. Alonso. I agree with the History, Examination, Assessment and Plan documented above with any addition or exceptions noted below. Patient reports drastic improvement in symptoms overnight. Here for mild COPD exacerbation that did not result in hypoxia this time. Had recent hospitalization where his resp status required intubation and therefore he is a very fragile COPD patient. Continue steroids, neb treatments. Will work to optimize outpatient mgmt of his COPD by adding Spiriva. No indication for abx at this time and PCT barely detectable. Encourage ambulation and see how he feels today but hopeful for d/c either this afternoon or tomorrow pending clinical course.
[2018-06-27 06:42] LABS: #Lymphocytes 0.8 thou/uL (1.20-3.40); #Monocytes 0.5 thou/uL (0.11-0.59); #Neutrophils 4.9 thou/uL (1.40-6.50); %Basophils 0.7 % (0.0-1.0); %Eosinophils 0.1 % (0.0-10.0); %Lymphocytes 13.3 % (21.0-51.0); %Monocytes 7.3 % (0.0-10.0); %Neutrophils 78.6 % (42.0-75.0); Hemoglobin 10.8 g/dL (14.0-18.0); Mean Corpuscular HGB CONC 33.4 g/dL (32.0-36.0); Mean Corpuscular Hemoglobin 30.7 pg (27.0-31.0); Mean Corpuscular Volume 92.1 fL (78.0-98.0); Mean Platelet Volume 7.6 fL (7.4-10.4); Platelet Count 194 thou/uL (130-400); RBC Distribution Width 13.7 % (11.5-14.5); Red Blood Cell (RBC) Count 3.51 mill/uL (4.70-6.10); White Blood Cell (WBC) Count 6.2 thou/uL (4.8-10.8)
[2018-06-27 06:56] LABS: Anion Gap 13 mmol/L (10-20); BUN (Urea Nitrogen) 13 mg/dL (8.4-25.7); Calc. Creatinine Clearance 54 mL/min (70-130); Calcium 8.8 mg/dL (7.8-10.44); Carbon Dioxide 23 mmol/L (23-31); Chloride 105 mmol/L (98-107); Estimated GFR-MDRD Greater than 90; Glucose 175 mg/dL (80-115); Potassium 4.2 mmol/L (3.5-5.1); Sodium 137 mmol/L (136-145)
[2018-06-27] MEDS: Amlodipine 5 MG TAB PO SCH (08:23)
[2018-06-27] MEDS: predniSONE 20 MG TAB PO SCH (08:23)
[2018-06-27] MEDS: Finasteride 5 MG TAB PO SCH (08:24)
[2018-06-27] MEDS: Tamsulosin HCl 0.4 MG CAP PO SCH (08:24)
[2018-06-27] MEDS ORDERED: Doxycycline 100 MG CAP PO SCH (09:00)
[2018-06-27] MEDS: Mometasone/Formoterol 120 PUFF INHALER INH SCH (19:40)
--- NOTE | 2018-06-28 05:59 | PDOC.FM ---
- Subjective Subjective: NAEO. Patient satted between 91-94% on RA overnight w/o any issues. Patient reports improvement in his SOB but says he does not yet feel back to baseline. Denies any fever or chills. Does endorses a cough but says he has been unable to cough up any sputum. - Objective MAR Reviewed: Yes Vital Signs & Weight: Vital Signs (12 hours) Temp Pulse Resp BP Pulse Ox 06/28/18 04:04 98.0 F 73 20 113/59 L 91 L 06/28/18 02:31 77 18 94 L 06/28/18 00:01 98.1 F 86 21 H 113/59 L 92 L 06/27/18 19:44 99 16 93 L 06/27/18 19:40 99 18 93 L 06/27/18 19:39 98.4 F 98 21 H 121/60 92 L Weight Admit Weight 44.452 kg Weight 44.452 kg I&O: 06/26/18 06/27/18 06/28/18 06:59 06:59 06:59 Intake Total 800 720 Balance 800 720 Result Diagrams: 06/27/18 06:14 06/27/18 06:14 Phys Exam - Physical Examination Constitutional: NAD HEENT: moist MMs Neck: supple, full ROM Respiratory: wheezing present (diffuse end-expiratory wheezing on exam improved from yesterday) Cardiovascular: RRR, no significant murmur Neurological: non-focal, moves all 4 limbs Psychiatric: normal affect, A&O x 3 Skin: no rash, normal turgor Dx/Plan (1) Acute exacerbation of chronic obstructive pulmonary disease (COPD) Code(s): J44.1 - CHRONIC OBSTRUCTIVE PULMONARY DISEASE W (ACUTE) EXACERBATION Status: Acute (2) BPH (benign prostatic hyperplasia) Code(s): N40.0 - BENIGN PROSTATIC HYPERPLASIA WITHOUT LOWER URINRY TRACT SYMP Status: Chronic (3) GERD (gastroesophageal reflux disease) Code(s): K21.9 - GASTRO-ESOPHAGEAL REFLUX DISEASE WITHOUT ESOPHAGITIS Status: Chronic (4) HTN (hypertension) Code(s): I10 - ESSENTIAL (PRIMARY) HYPERTENSION Status: Chronic (5) Protein-calorie malnutrition, moderate Code(s): E44.0 - MODERATE PROTEIN-CALORIE MALNUTRITION Status: Chronic (6) Tobacco abuse disorder Code(s): Z72.0 - TOBACCO USE Status: Chronic (7) Acute respiratory failure with hypoxemia Code(s): J96.01 - ACUTE RESPIRATORY FAILURE WITH HYPOXIA Status: Resolved - Plan Plan: This is a 68 yo male with a pmh of COPD, GERD, BPH who presented in an acute on chronic COPD exacerbation. COPD exacerbation - Resolving as patient has been satting between 91-94% on RA overnight. - Will give a few more ANAT nebulized albuterol treatments and start on spiriva today. - Will continue Oral prednisone likely send home on a 2 week steroid taper rather than usual 5 day course due to severity of patient's COPD. - Procal negative so Abx d/c. Flu swab negative. Blood cultures show no growth to date. - Will continue supplemental O2 PRN to maintain pO2 sats above 88 and below 98. HTN -Continue home meds GERD -Continue home meds BPH -Continue home meds Protein calorie malnutrition - Will initiate supplementation - HH diet. Code: full Prophylaxis: SCDs Family: none at bedside Disposition: Possible discharge home later today with close follow-up with PCP. Addendum - Attending - Attending Attestation Date/Time: 06/28/18 [id number] I personally evaluated the patient and discussed the management with Dr. Alonso. I agree with the History, Examination, Assessment and Plan documented above with any addition or exceptions noted below. Patient doing well this morning. Reports he ambulated well yesterday. O2 sats low normal on room air. Work to start Spiriva and see how he does today. If feeling well, can likely discharge home later today.
[2018-06-28] MEDS ORDERED: Spiriva 18 MCG CAP (Box of 5 Caps) INH SCH (07:00)
[2018-06-28] MEDS: Mometasone/Formoterol 120 PUFF INHALER INH SCH (07:04)
[2018-06-28] MEDS ORDERED: Benzonatate 100 MG CAP PO PRN (07:37)
[2018-06-28] MEDS: predniSONE 20 MG TAB PO SCH (08:13)
[2018-06-28] MEDS: Tamsulosin HCl 0.4 MG CAP PO SCH (08:14)
[2018-06-28] MEDS: Finasteride 5 MG TAB PO SCH (08:14)
[2018-06-28] MEDS: Amlodipine 5 MG TAB PO SCH (08:14)
[2018-06-28] MEDS ORDERED: guaiFENesin/DM ER PO SCH (09:00)
[2018-06-28] MEDS ORDERED: Albuterol Sulfate 1.25 MG/3 ML NEB NEB SCH (11:00)
[2018-06-28] MEDS ORDERED: Albuterol Sulfate 1.25 MG/3 ML NEB ONE (11:13)
[2018-06-28] MEDS ORDERED: Ipratropium Bromide 2.5 ml Neb NEB SCH (13:00)
[2018-06-28 15:26] VITALS: BP 147/55; TEMP 97.5
[2018-06-29] MEDS ORDERED: Spiriva 18 MCG CAP (Box of 5 Caps) INH SCH (07:00)
--- NOTE | 2018-06-29 07:49 | DIS ---
DATE OF ADMISSION: 06/26/2018 DATE OF DISCHARGE: 06/28/2018 RESIDENT: Dr. Ruby Alonso. ADMITTING ATTENDING: Dr. Alexandre Wilson. DISCHARGE ATTENDING: Dr. Alexandre Wilson. CONSULTS: None. PROCEDURES: Chest x-ray, which showed hyperinflation and chronic changes consistent with chronic COPD. DISCHARGE MEDICATIONS: 1. Albuterol sulfate 2.5 mg/3 mL 1unit inhaled every 8 hours, #90. 2. Finasteride 5 mg p.o. daily. 3. Tamsulosin 0.4 mg p.o. daily. 4. Amlodipine 5 mg p.o. daily. 5. Dulera 200 mcg/5 mcg inhaler two puffs inhaled b.i.d. 6. Acetaminophen 650 mg p.o. every 4 hours p.r.n. for pain. 7. Tessalon 100 mg p.o. every 4 hours p.r.n. for cough, #20. 8. Prednisone taper of 10 mg tablets for 14 days; take 4 tablets x3 days, take 3 tabs x3 days, take 2 tabs x3 days, take 1 tab x3 days, then take 0.5 tab x2 days. #31 tablets. 9. Spiriva 18 mcg inhaled daily. DISCONTINUED MEDICATION: DuoNeb 3 mL nebulized every 4 hours. PRIMARY DIAGNOSIS: Acute on chronic obstructive pulmonary disease exacerbation. SECONDARY DIAGNOSES: 1. Chronic obstructive pulmonary disease. 2. Hypertension. 3. Benign prostatic hyperplasia. 4. Protein calorie malnutrition, moderate. 5. Tobacco abuse. HOSPITAL COURSE: The patient is a 68-year-old gentleman with past medical history significant for end-stage COPD, who presented to the emergency department with chief complaint of worsening shortness of breath that began the evening prior to the morning of presentation. The patient reported increased cough with associated orthopnea and intermittent lightheadedness. He stated that he used 3 albuterol nebulizer treatments and did not feel any better, so therefore decided to call EMS. Of note, the patient was recently hospitalized this past April and required intubation for stabilization at that time for acute respiratory failure with hypoxemia. On presentation to the emergency department, the patient was noted to be tachycardic with a heart rate of 118 and tachypneic with a respiratory rate of 30. He was, therefore, placed on 2 L of oxygen via nasal cannula and was maintaining O2 sats between 95% and 100%. A chest x-ray was obtained as well as routine lab work, all of which were negative. The patient's chest x-ray just showed hyperinflation and chronic changes consistent with chronic COPD. However, given the fact that the patient was placed on oxygen and normally does not require oxygen at home and the fact that he was recently hospitalized requiring intubation, he was given 750 mg of IV Levaquin, 50 mL of IV magnesium sulfate, 10 mg of IV Decadron, and a nebulized DuoNeb and albuterol treatment as well as 1 L of normal saline. He was then evaluated by the medical team and admitted to the medical floor for close observation overnight. Once on the floor, the patient was able to come off of oxygen completely by the date of discharge and reported improvement in his SOB. After seeing that he was able to ambulate well without requiring any oxygen, he was therefore discharged home with a few nebulizer treatments, a 2 week PO prednisone taper, and a new inhaler, spiriva. He was instructed to follow-up with his PCP within 1 week of discharge. DISPOSITION: Stable. DISCHARGE INSTRUCTIONS: 1. Location: home 2. Activity: Activity as tolerated. 3. Diet: HH diet 4. Follow-up: The patient was instructed to follow-up with his PCP, Dr. Shar Almaguer within 1 week of discharge. Job ID: [id number] MTDD
== END 2018-06-28 15:25 | disposition home or self-care (01) | DRG 191 ==
LOC: ERS 15:35 → T4-A 17:22
PROVIDERS: ADMIT Family Medicine; ATTEND Family Medicine
DX: J44.1 Chronic obstructive pulmonary disease with (acute) exacerbation (principal); E44.0 Moderate protein-calorie malnutrition; Z68.1 Body mass index [BMI] 19.9 or less, adult; I10 Essential (primary) hypertension; N40.0 Benign prostatic hyperplasia without lower urinary tract symptoms; K21.9 Gastro-esophageal reflux disease without esophagitis; F17.210 Nicotine dependence, cigarettes, uncomplicated; Z88.8 Allergy status to other drugs, medicaments and biological substances
CPT/HCPCS: 36415; 71045; 80048; 80061; 80076; 82550; 82805; 83036; 83690; 83880; 84145; 84443; 84484; 85025; 87040; 87804; 93005; 94640; 94664; 96365; 96367; 96375; J1100; J1956; J7506; J7611; J7620

== ENCOUNTER 2018-09-01 17:41 | Observation (INO) | payer MEDICARE, MEDICAID ==
[2018-09-01 18:27] LABS: #Monocytes 0.3 thou/uL (0.11-0.59); #Neutrophils 7.3 thou/uL (1.40-6.50); %Basophils 0.3 % (0.0-1.0); %Eosinophils 0.1 % (0.0-10.0); %Neutrophils 84.6 % (42.0-75.0); Hemoglobin 11.9 g/dL (14.0-18.0); Mean Corpuscular HGB CONC 32.2 g/dL (32.0-36.0); Mean Corpuscular Hemoglobin 29.8 pg (27.0-31.0); Mean Corpuscular Volume 92.6 fL (78.0-98.0); Mean Platelet Volume 7.6 fL (7.4-10.4); Platelet Count 246 thou/uL (130-400); RBC Distribution Width 13.1 % (11.5-14.5); Red Blood Cell (RBC) Count 3.98 mill/uL (4.70-6.10); White Blood Cell (WBC) Count 8.6 thou/uL (4.8-10.8)
[2018-09-01] MEDS ORDERED: Azithromycin 250 MG TAB ONE ×2 (18:32)
[2018-09-01] MEDS ORDERED: Magnesium 2 GM/50 ML BAG (IN WATER) ONE (18:32)
[2018-09-01 18:49] LABS: ALT (SGPT) 12 U/L (8-55); AST (SGOT) 18 U/L (5-34); Albumin 4.4 g/dL (3.4-4.8); Alkaline Phosphatase 68 U/L (40-150); Anion Gap 13 mmol/L (10-20); BUN (Urea Nitrogen) 17 mg/dL (8.4-25.7); Bilirubin, Total 0.9 mg/dL (0.2-1.2); Calc. Creatinine Clearance 0 mL/min (70-130); Calcium 10.2 mg/dL (7.8-10.44); Carbon Dioxide 28 mmol/L (23-31); Chloride 100 mmol/L (98-107); Estimated GFR-MDRD Greater than 90; Globulin 3.1 g/dL (2.4-3.5); Glucose 160 mg/dL (80-115); Potassium 4.1 mmol/L (3.5-5.1); Protein, Total 7.5 g/dL (5.8-8.1); Sodium 137 mmol/L (136-145)
--- NOTE | 2018-09-01 18:53 | RAD ---
CHEST ONE VIEW: History: Shortness of breath. FINDINGS: Heart size is within normal limits. There is some atherosclerotic changes of the aorta. Lungs are mil dly hyperexpanded. No focal infiltrative process is seen. The left hemidiaphragm is slightly indistin ct but I think this is just related to the reverse lordotic technique of this film. IMPRESSION: No active intrathoracic disease. Hyperexpansion suggesting an element of COPD. POS: [facility]
--- NOTE | 2018-09-01 19:36 | PDOC.FPRHP ---
- History of Present Illness Chief Complaint: SOB History of Present Illness: This is a 68yo M here for SOB. Patient has a hx significant for COPD. The patient reports 3 days of worsening dyspnea. Patient was seen and evaluated in the [place] ED yesterday for SOB. The patient reports that since yesterday, his SOB has worsened so much that he had trouble breathing with walking. SOB made worse by lying flat. Patient has been doing breathing treatments at home but has persistent SOB. Patient reports dry cough and a sore throat. Reports muscles aches for the past 3 days. Denies fever, nasal congestion or chest pain. Denies sick contacts. Patient lives at home with his daughter who helps take care of him. Patient states compliance with home medications. Pt w/ hx of tobacco use - currently smokes 1/2 pack a day. No home O2. Patient's PCP is [facility] - Allergies/Adverse Reactions Allergies Allergy/AdvReac Type Severity Reaction Status Date / Time lisinopril Allergy Severe Swollen Verified 05/04/18 22:39 Lips - Home Medications Medication Instructions Recorded Confirmed Type Amlodipine [Norvasc] 5 mg PO DAILY 10/05/17 09/01/18 History Finasteride [Proscar] 5 mg PO DAILY 10/05/17 09/01/18 History Tamsulosin HCl [Flomax] 0.4 mg PO DAILY 10/05/17 09/01/18 History Mometasone/Formoterol 200/5 2 puff INH BID #7 aer 01/12/18 09/01/18 Rx [Dulera 200 Mcg/5 Mcg Inhaler] Acetaminophen [Tylenol Regular 650 mg PO Q4H PRN tab 06/28/18 09/01/18 Rx Strength] Tiotropium [Spiriva Handihaler] 18 mcg INH DAILY #30 box 06/28/18 09/01/18 Rx Hydrochlorothiazide 12.5 mg PO QAM 09/01/18 09/01/18 History predniSONE 40 mg PO DAILY 09/01/18 09/01/18 History Azithromycin [Zithromax] 500 mg PO DAILY #3 tab 09/03/18 Rx predniSONE 40 mg PO DAILY 3 Days #6 tab 09/03/18 Rx - History PMHx: COPD, HTN, BPH PSHx: none FHx: non contributory Social: lives at home w/ daughter; smokes 1/2 pack a day for 52 years, denies alcohol or drug use - Review of Systems General: reports: weight/appetite/sleep changes, fatigue. denies: fever/chills Eyes: denies: eye pain, vision changes ENT: reports: nasal congestion, rhinorrhea Respiratory: reports: cough, congestion, shortness of breath, exercise intolerance Cardiovascular: reports: orthopnea. denies: chest pain, palpitation, edema, paroxysmal nocturnal dyspnea Gastrointestinal: denies: nausea, vomiting, diarrhea, constipation, abdominal pain Skin: denies: rashes, lesions Musculoskeletal: denies: pain, tenderness, swelling Neurological: denies: numbness - Vital signs BP: [] HR: [] RR: [] Tmax: [] Pox: []% on [] Wt: [] - Physical Exam Constitutional: NAD, awake, alert and oriented -Constitutional: elderly male, ill appearing, looks older than stated age HEENT: normocephalic and atraumatic, PERRLA, EOMI, normal nasal mucosa, MMM -HEENT: poor dentition Neck: supple, FROM Chest: no-tender to palpation, no lesions Heart: RRR, normal S1/S2, no murmurs/rubs/gallops, no edema -Lungs: Insp and exp wheeze heard diffusely, coarse breath sounds more in the LLQ, poor air movement Abdomen: soft, non-tender, bowel sounds present, no masses/distention Musculoskeletal: normal structure, normal tone, ROM grossly normal Neurological: no focal deficit Skin: no rash/lesions, good turgor, capillary refill <2 seconds Heme/Lymphatic: no purpura, no petechia Psychiatric: normal mood and affect, good judgment and insight, intact recent and remote memory FMR H&P: Results - Labs Result Diagrams: 09/02/18 05:41 09/02/18 05:41 Lab results: WBC 8.6 thou/uL (4.8-10.8) 09/01/18 18:16 Hgb 11.9 g/dL (14.0-18.0) L 09/01/18 18:16 Hct 36.8 % (42.0-52.0) L 09/01/18 18:16 MCV 92.6 fL (78.0-98.0) 09/01/18 18:16 Plt Count 246 thou/uL (130-400) 09/01/18 18:16 Neutrophils % 84.6 % (42.0-75.0) H 09/01/18 18:16 Sodium 137 mmol/L (136-145) 09/01/18 18:16 Potassium 4.1 mmol/L (3.5-5.1) 09/01/18 18:16 Chloride 100 mmol/L (98-107) 09/01/18 18:16 Carbon Dioxide 28 mmol/L (23-31) 09/01/18 18:16 BUN 17 mg/dL (8.4-25.7) 09/01/18 18:16 Creatinine 0.98 mg/dL (0.7-1.3) 09/01/18 18:16 Glucose 160 mg/dL (80-115) H 09/01/18 18:16 Calcium 10.2 mg/dL (7.8-10.44) 09/01/18 18:16 Total Bilirubin 0.9 mg/dL (0.2-1.2) 09/01/18 18:16 AST 18 U/L (5-34) 09/01/18 18:16 ALT 12 U/L (8-55) 09/01/18 18:16 Alkaline Phosphatase 68 U/L (40-150) 09/01/18 18:16 Serum Total Protein 7.5 g/dL (5.8-8.1) 09/01/18 18:16 Albumin 4.4 g/dL (3.4-4.8) 09/01/18 18:16 - Radiology Interpretation Chest x-ray Status: report reviewed by me (No acute process) FMR H&P: A/P - Problem List (1) Acute exacerbation of chronic obstructive pulmonary disease (COPD) Status: Acute Code(s): J44.1 - CHRONIC OBSTRUCTIVE PULMONARY DISEASE W (ACUTE ) EXACERBATION Comment: (2) BPH (benign prostatic hyperplasia) Status: Chronic Code(s): N40.0 - BENIGN PROSTATIC HYPERPLASIA WITHOUT LOWER URINRY TRACT SYMP (3) GERD (gastroesophageal reflux disease) Status: Chronic Code(s): K21.9 - GASTRO-ESOPHAGEAL REFLUX DISEASE WITHOUT ESOPHAGITIS (4) HTN (hypertension) Status: Chronic Code(s): I10 - ESSENTIAL (PRIMARY) HYPERTENSION (5) Tobacco abuse disorder Status: Chronic Code(s): Z72.0 - TOBACCO USE - Plan COPD exacerbation Patient w/ PMH of COPD and multiple hospitalization for exacerbation. Symptoms of cough, SOB, and wheeze consistent w/ COPD exacerbation. CXR showing no acute cardiopulm process. - Patient currently doing well on RA - keep O2 sats between 88-92% and will give supplement O2 as needed - Will continue with azithromycin, steroids, and duonebs - Procal pending HTN - Chronic issue, continue home amlodipine BPH - Chronic issue, continue flomax and finasteride Protein calorie malnutrition - Will obtain height to calculate BMI - Concern though with BW of 45 kg, he is malnourished. Will consult mental measurements teacher for supplement recommendation. FMR H&P: Upper Level - Pertinent history This is a 68yo M here for 3 days of SOB with PMHx of COPD, requiring multiple admission in past year. He was seen in [place] ER for SOB, treated as presumed COPD exacerbation, but has worsen despite treatment. He of new severe dyspnea on exertion. He endorses cough and a sore throat. He denies fever, nasal congestion, chest pain, LE edema. No recent immobilization but is current tobacco user - Pertinent findings Vitals: BP 135/56, Resp 16, O2 96% on RA, Pulse 94, Temp 98.4 Gen: Thin appearing, appear older then stated age, alert and oriented HEENT: Vision and hearing grossly intact, moist mucosal membrane CV: RRR with no apparent m/g/r Resp: Wheezing in all lung guo, no retraction or labored breathing GI: Normoactive, not tender to palpation Ext: No pitting edema - Plan Date/Time: 09/01/181931 1. COPD exacerbation - Appear to be mild copd exacerbation as patient doing well on room air after abx, steroid and breathing treatment. - Plan to continue with abx, steroid, breathing treatment, supplmental O2 - Appear ill, no height 2. HTN - Chronic issue, continue amlodipine 3. BPH - Chronic issue, continue flomax and finasteride 4. Protein calorie malnutrition - No height on record yet, will obtain. - Concern though with BW of 45 kg, he is malnourished. I, [Terry Ly], have evaluated this patient and agree with findings/plan as outlined by inclusion internship resident. Pertinent changes/additions are listed here. Addendum - Attending - Attending Attestation Date/Time: 09/01/182119 I personally evaluated the patient and discussed the management with Dr. Rosa and Dr. Alegria I agree with the History, Examination, Assessment and Plan documented above with any addition or exceptions noted below. 68 yo male with hx of HTN, BPH, and COPD presents to ER for the past 2 days with progressive SOB. Patient reports today SOB progressed. Worse with lying flat and with minimal activity. Was seen at [place] [facility] on 08/31/18 and given steroids but no improvement. Associated symptoms include body aches and decreased appetite. Lives at home with daughter. VS reviewed. Labs reviewed. Imaging reviewed. Ill appearing male. Appears older than stated age. Thin. RRR. No murmur. Poor air movement. Increased work of breathing, mild. Diffuse wheezing. NT/ND. BS present. No edema, no cyanosis Acute COPD ex: Possibly end stage. Significant hyperinflation on CXR. Max out home therapy. Consider daily oral steroids. Pulm outpatient. Continue azithro and steroids. Add procal. Add flu swab. Progressive SOB with orthopnea: Check BNP. 2016 ECHO no evidence of structural abnormalities or heart failure. BNPs have been borderline elevated. Adjust home meds as needed. Rhina
[2018-09-01] MEDS ORDERED: Albuterol Sulfate 2.5 mg/3 ml Neb NEB PRN (20:52)
[2018-09-01] MEDS ORDERED: Ondansetron PF 4 MG/2 ML Vial IVP PRN (20:52)
[2018-09-01] MEDS ORDERED: Ondansetron ODT 4 MG TAB PO PRN (20:52)
[2018-09-01 21:43] VITALS: BMI 16.5
[2018-09-02] MEDS ORDERED: Benzonatate 100 MG CAP PO PRN (01:06)
[2018-09-02] MEDS ORDERED: Acetaminophen 325 MG TAB PO PRN (01:06)
[2018-09-02 05:54] LABS: #Basophils 0.1 thou/uL (0.0-0.2); #Lymphocytes 1.3 thou/uL (1.20-3.40); #Monocytes 0.7 thou/uL (0.11-0.59); #Neutrophils 8.5 thou/uL (1.40-6.50); %Basophils 0.6 % (0.0-1.0); %Eosinophils 0.1 % (0.0-10.0); %Lymphocytes 11.9 % (21.0-51.0); %Monocytes 6.7 % (0.0-10.0); %Neutrophils 80.8 % (42.0-75.0); Hemoglobin 11.2 g/dL (14.0-18.0); Mean Corpuscular HGB CONC 31.7 g/dL (32.0-36.0); Mean Corpuscular Hemoglobin 29.5 pg (27.0-31.0); Mean Corpuscular Volume 93.1 fL (78.0-98.0); Mean Platelet Volume 7.8 fL (7.4-10.4); Platelet Count 192 thou/uL (130-400); Red Blood Cell (RBC) Count 3.78 mill/uL (4.70-6.10); White Blood Cell (WBC) Count 10.6 thou/uL (4.8-10.8)
[2018-09-02 06:15] LABS: Anion Gap 11 mmol/L (10-20); BUN (Urea Nitrogen) 17 mg/dL (8.4-25.7); Calc. Creatinine Clearance 55 mL/min (70-130); Calcium 9.6 mg/dL (7.8-10.44); Carbon Dioxide 28 mmol/L (23-31); Chloride 104 mmol/L (98-107); Estimated GFR-MDRD Greater than 90; Glucose 120 mg/dL (80-115); Potassium 3.9 mmol/L (3.5-5.1); Sodium 139 mmol/L (136-145)
--- NOTE | 2018-09-02 06:51 | PDOC.FM ---
- Subjective Subjective: Still short of breath this AM. No abdominal or chest pain. Slept well. Reports missing a couple of doses of his inhalers the days prior to admission. Only takes them in the AM, not at night. - Objective MAR Reviewed: Yes Vital Signs & Weight: Vital Signs (12 hours) Temp Pulse Resp BP Pulse Ox 09/02/18 06:05 95 18 93 L 09/02/18 05:40 98 F 92 21 H 137/79 95 09/02/18 02:01 86 18 98 09/01/18 22:07 90 20 99 09/01/18 21:20 98.0 F 86 22 H 113/56 L 94 L Weight Weight 46.4 kg Result Diagrams: 09/02/18 05:41 09/02/18 05:41 Phys Exam - Physical Examination Constitutional: NAD cachectic HEENT: moist MMs Neck: supple Respiratory: wheezing present rhonchi present Cardiovascular: RRR, no significant murmur Gastrointestinal: soft, non-tender, positive bowel sounds Musculoskeletal: pulses present Neurological: moves all 4 limbs Psychiatric: normal affect, A&O x 3 Skin: normal turgor Dx/Plan (1) Acute exacerbation of chronic obstructive pulmonary disease (COPD) Code(s): J44.1 - CHRONIC OBSTRUCTIVE PULMONARY DISEASE W (ACUTE) EXACERBATION Status: Acute (2) BPH (benign prostatic hyperplasia) Code(s): N40.0 - BENIGN PROSTATIC HYPERPLASIA WITHOUT LOWER URINRY TRACT SYMP Status: Chronic (3) GERD (gastroesophageal reflux disease) Code(s): K21.9 - GASTRO-ESOPHAGEAL REFLUX DISEASE WITHOUT ESOPHAGITIS Status: Chronic (4) HTN (hypertension) Code(s): I10 - ESSENTIAL (PRIMARY) HYPERTENSION Status: Chronic (5) Protein-calorie malnutrition, moderate Code(s): E44.0 - MODERATE PROTEIN-CALORIE MALNUTRITION Status: Chronic - Plan Plan: COPD exacerbation Patient w/ PMH of COPD and multiple hospitalization for exacerbation. Symptoms of cough, SOB, and wheeze consistent w/ COPD exacerbation. - Home regimen: Spiriva & Dulera - CXR: no acute cardiopulm process. - O2 sats between 88-92% and will give supplement O2 as needed - Continue azithromycin, steroids, and duonebs - Procal 0.03 HTN - Continue home amlodipine BPH - Continue flomax and finasteride Protein calorie malnutrition - BMI 16.5 - Log Turner consulted - Ensure BID for now Code Status: FULL DVT ppx: Lovenox PCP: [facility]
[2018-09-02] MEDS: Enoxaparin Sodium 40 MG/0.4 ML SYRINGE SC SCH (08:22)
[2018-09-02] MEDS: Amlodipine 5 MG TAB PO SCH (08:23)
[2018-09-02] MEDS: Tamsulosin HCl 0.4 MG CAP PO SCH (08:23)
[2018-09-02] MEDS: Azithromycin 250 MG TAB PO SCH (08:23)
[2018-09-02] MEDS: Finasteride 5 MG TAB PO SCH (08:23)
[2018-09-02] MEDS ORDERED: methylPREDNISolone Sod Succ 40 MG VIAL IVP SCH (09:00)
--- NOTE | 2018-09-02 11:59 | PRG ---
DATE OF SERVICE: 09/02/2018 SUBJECTIVE: Mr. Johnson is a 68-year-old black male with a history of COPD. He was admitted with an exacerbation of his COPD after skipping several medications. He is still short of breath, but feels better than he did on admission. His CBC shows a normal white count and a very mild drop in hemoglobin 11.9 with an MCV of 92.6. His BMP is normal. Procalcitonin is low at 0.03. He has responded well to methylprednisolone and oral prednisone. We will resume his usual home medications, which include Spiriva and Dulera. Job ID: [id number]
--- NOTE | 2018-09-03 06:27 | PDOC.FM ---
- Subjective Subjective: No overnight events. Feeling better today. Reports shortness of breath has greatly improved and he is no longer requiring oxygen. Pharmacy came and spoke with him yesterday in detail about his inhalers and feels this was helpful. No other concerns. - Objective MAR Reviewed: Yes Vital Signs & Weight: Vital Signs (12 hours) Temp Pulse Resp BP Pulse Ox 09/03/18 05:50 83 16 92 L 09/03/18 02:19 16 09/02/18 22:23 89 20 92 L 09/02/18 20:00 98.2 F 89 18 125/70 92 L Weight Admit Weight 46.4 kg Weight 46.4 kg I&O: 09/01/18 09/02/18 09/03/18 06:59 06:59 06:59 Intake Total 2214 Balance 2214 Result Diagrams: 09/02/18 05:41 09/02/18 05:41 Phys Exam - Physical Examination Constitutional: NAD HEENT: moist MMs Neck: supple Respiratory: wheezing present rhonchi present Cardiovascular: RRR, no significant murmur Gastrointestinal: soft, non-tender, positive bowel sounds Musculoskeletal: no edema Neurological: moves all 4 limbs Psychiatric: normal affect, A&O x 3 Skin: normal turgor Dx/Plan (1) Acute exacerbation of chronic obstructive pulmonary disease (COPD) Code(s): J44.1 - CHRONIC OBSTRUCTIVE PULMONARY DISEASE W (ACUTE) EXACERBATION Status: Acute (2) BPH (benign prostatic hyperplasia) Code(s): N40.0 - BENIGN PROSTATIC HYPERPLASIA WITHOUT LOWER URINRY TRACT SYMP Status: Chronic (3) GERD (gastroesophageal reflux disease) Code(s): K21.9 - GASTRO-ESOPHAGEAL REFLUX DISEASE WITHOUT ESOPHAGITIS Status: Chronic (4) HTN (hypertension) Code(s): I10 - ESSENTIAL (PRIMARY) HYPERTENSION Status: Chronic (5) Protein-calorie malnutrition, moderate Code(s): E44.0 - MODERATE PROTEIN-CALORIE MALNUTRITION Status: Chronic - Plan Plan: COPD exacerbation - Home regimen: Spiriva & Dulera. Only taking once daily - Recommended increasing Dulera to BID. - CXR: no acute cardiopulm process. - O2 sats between 90-92% and will give supplement O2 as needed - Continue azithromycin, steroids for total of 5 days - Duonebs q4hr Santy. Continue home dulera. - Procal 0.03 HTN - Continue home amlodipine BPH - Continue flomax and finasteride Protein calorie malnutrition - BMI 16.5 - Regulatory Compliance Manager consulted - Ensure BID Code Status: FULL DVT ppx: Lovenox PCP: [facility] Dispo: Likely today
[2018-09-03 06:56] VITALS: BP 137/64; TEMP 97.5
[2018-09-03] MEDS: Amlodipine 5 MG TAB PO SCH (08:00)
[2018-09-03] MEDS: Finasteride 5 MG TAB PO SCH (08:00)
[2018-09-03] MEDS: Tamsulosin HCl 0.4 MG CAP PO SCH (08:00)
[2018-09-03] MEDS: Enoxaparin Sodium 40 MG/0.4 ML SYRINGE SC SCH (08:01)
[2018-09-03] MEDS: Azithromycin 250 MG TAB PO SCH (08:01)
[2018-09-03] MEDS ORDERED: predniSONE 20 MG TAB PO SCH (09:00)
--- NOTE | 2018-09-03 12:46 | PRG ---
DATE OF SERVICE: 09/03/2018 Mr. Johnson feels fine this morning. He is back to his respiratory baseline. We have re-emphasized the importance of appropriate use of his inhalers and he seems to understand. He will be discharged today for followup in a week or two. Clinically, he has much improved. Job ID: [id number]
--- NOTE | 2018-09-04 10:33 | DIS ---
DATE OF ADMISSION: 09/01/2018 DATE OF DISCHARGE: 09/03/2018 RESIDENT: Mary Forde, PGY-1. ADMITTING ATTENDING: Cara Dill MD DISCHARGE ATTENDING: Geoff Cox MD PROCEDURES: Chest x-ray, no active intrathoracic disease, hyperexpansion suggesting an element of chronic obstructive pulmonary disease. CONSULTS: None. PRIMARY DIAGNOSIS: Chronic obstructive pulmonary disease exacerbation. SECONDARY DIAGNOSES: 1. Hypertension. 2. BPH. 3. Protein-calorie malnutrition. DISCHARGE MEDICATIONS: 1. Azithromycin 500 mg p.o. three tablets (new). 2. Amlodipine 5 mg daily. 3. Finasteride 5 mg daily. 4. Hydrochlorothiazide 12.5 mg daily. 5. Prednisone 40 mg daily for 3 days (new medication). 6. Dulera two inhalations b.i.d. 7. Flomax 0.4 mg daily. 8. Spiriva 18 mcg inhalation daily. HOSPITAL COURSE: Mr. Johnson is a 68-year-old male, who presented to the ED for shortness of breath, diagnosis of COPD exacerbation. He currently smokes half a pack a day, not on home oxygen. He was stable on room, did not require oxygen. He has not been taking Dulera twice daily, but only in the morning. His chest x-ray showed no acute cardiopulmonary process. Procalcitonin 0.03. He was started on azithromycin and steroids, to be continued for a total of 5 days. He received DuoNeb q.4 hours schedule. His other chronic medical conditions of hypertension and BPH were treated with his home medications. He was given Ensure b.i.d. for protein-calorie malnutrition. DISPOSITION: Stable. DISCHARGE INSTRUCTIONS: 1. Location: Home. 2. Diet: Regular. 3. Activity: No restrictions. 4. Followup: Follow up with Dr. Almaguer within 7 days. Job ID: [id number]
--- NOTE | 2018-09-04 12:16 | EKG ---
Test Reason : Blood Pressure : / mmHG Vent. Rate : 090 BPM Atrial Rate : 090 BPM P-R Int : 106 ms QRS Dur : 078 ms QT Int : 364 ms P-R-T Axes : 086 077 069 degrees QTc Int : 445 ms Sinus rhythm with sinus arrhythmia with short DE Otherwise normal ECG Confirmed by LIDYA BULLOCK DO ([id number]), staff editor TENZIN SCHERER ([id number]) on 09/04/2018 12:15:49 PM Referred By: ER Confirmed By:LIDYA BULLOCK DO
== END 2018-09-03 14:20 | disposition home or self-care (01) ==
LOC: ERS 17:41 → T4-A 21:31
PROVIDERS: ADMIT Student in an Organized Health Care Education/Training Program; ATTEND Student in an Organized Health Care Education/Training Program
DX: J44.1 Chronic obstructive pulmonary disease with (acute) exacerbation (principal); F17.210 Nicotine dependence, cigarettes, uncomplicated; I10 Essential (primary) hypertension; N40.0 Benign prostatic hyperplasia without lower urinary tract symptoms; K21.9 Gastro-esophageal reflux disease without esophagitis; E44.0 Moderate protein-calorie malnutrition; Z68.1 Body mass index [BMI] 19.9 or less, adult; Z79.52 Long term (current) use of systemic steroids; Z79.899 Other long term (current) drug therapy; Z88.8 Allergy status to other drugs, medicaments and biological substances
CPT/HCPCS: 71045; 80048; 80053; 84145; 85025 ×2; 87631; 93005; 94640 ×3; 96365; 96372 ×2; 96374; 96375; 97139 ×2; 99285; 99406; G0378; 36415; J1650; J3475; J7620

== ENCOUNTER 2018-10-10 20:52 | Emergency (ER) | payer MEDICARE, MEDICAID ==
[2018-10-10 21:34] LABS: Hemoglobin 13.9 g/dL (14.0-18.0); Mean Corpuscular HGB CONC 32.9 g/dL (32.0-36.0); Mean Corpuscular Hemoglobin 30.5 pg (27.0-31.0); Mean Corpuscular Volume 92.9 fL (78.0-98.0); Mean Platelet Volume 7.2 fL (7.4-10.4); Platelet Count 204 thou/uL (130-400); RBC Distribution Width 12.9 % (11.5-14.5); Red Blood Cell (RBC) Count 4.56 mill/uL (4.70-6.10); White Blood Cell (WBC) Count 5.9 thou/uL (4.8-10.8)
[2018-10-10 21:55] LABS: ALT (SGPT) 13 U/L (8-55); AST (SGOT) 28 U/L (5-34); Albumin 4.2 g/dL (3.4-4.8); Alkaline Phosphatase 69 U/L (40-150); Anion Gap 18 mmol/L (10-20); BUN (Urea Nitrogen) 19 mg/dL (8.4-25.7); Bilirubin, Total 1.7 mg/dL (0.2-1.2); Calc. Creatinine Clearance 0 mL/min (70-130); Calcium 9.8 mg/dL (7.8-10.44); Carbon Dioxide 23 mmol/L (23-31); Chloride 98 mmol/L (98-107); Estimated GFR-MDRD 70; Globulin 3.2 g/dL (2.4-3.5); Glucose 76 mg/dL (80-115); Potassium 3.6 mmol/L (3.5-5.1); Protein, Total 7.4 g/dL (5.8-8.1); Sodium 135 mmol/L (136-145)
[2018-10-10 22:14] LABS: Band 1 % (5-11); Lymphocytes 64 % (21-51); MDiff Complete? YES; Monocytes 17 % (0-10); Neutrophil 14 % (42-75); Platelet Morphology Comment Appears Adequate; RBC Morphology Normal; Reactive Lymphocytes 4 % (0-10)
--- NOTE | 2018-10-10 22:21 | RAD ---
AP VIEW CHEST: 10/10/18 HISTORY: COPD. AP view chest is obtained on 10/10/18. Comparison made to a previous exam from 09/01/18. AP view chest demonstrates the lungs to be well aerated. No evidence of active intrathoracic disease seen. No evidence of effusions, pneumonia or pneumothorax seen. IMPRESSION: Unremarkable AP view chest. POS: [facility]
== END 2018-10-10 23:02 | disposition home or self-care (01) ==
LOC: ERS 20:52
DX: J44.1 Chronic obstructive pulmonary disease with (acute) exacerbation (principal); K21.9 Gastro-esophageal reflux disease without esophagitis; I10 Essential (primary) hypertension; N40.0 Benign prostatic hyperplasia without lower urinary tract symptoms; F17.210 Nicotine dependence, cigarettes, uncomplicated; Z79.899 Other long term (current) drug therapy; Z79.51 Long term (current) use of inhaled steroids
CPT/HCPCS: 36415; 71045; 80053; 85025; 93005

== ENCOUNTER 2018-10-18 19:33 | Inpatient (IN) | payer MEDICARE, MEDICAID ==
--- NOTE | 2018-10-18 20:30 | RAD ---
XR Chest 1 View Portable HISTORY: Dyspnea, cough COMPARISON: 10/10/2018 FINDINGS: The heart size is normal. The lungs are well expanded without focal areas of consolidation, pneumothorax or pleural effusions. IMPRESSION: No radiographic evidence of acute cardiopulmonary process.
[2018-10-18 20:31] LABS: Hemoglobin 11.9 g/dL (14.0-18.0); Mean Corpuscular HGB CONC 33.3 g/dL (32.0-36.0); Mean Corpuscular Hemoglobin 30.8 pg (27.0-31.0); Mean Corpuscular Volume 92.4 fL (78.0-98.0); Mean Platelet Volume 7.2 fL (7.4-10.4); Platelet Count 365 thou/uL (130-400); RBC Distribution Width 12.7 % (11.5-14.5); Red Blood Cell (RBC) Count 3.87 mill/uL (4.70-6.10)
[2018-10-18] MEDS ORDERED: methylPREDNISolone Sod Succ/PF 125 MG/2 ML VIAL ONE (20:41)
[2018-10-18] MEDS ORDERED: Albuterol Sulfate 2.5 mg/0.5 ml Neb ONE (20:52)
[2018-10-18] MEDS ORDERED: Albuterol Sulfate 2.5 mg/3 ml Neb ONE (20:52)
--- NOTE | 2018-10-18 20:58 | PDOC.FPRHP ---
- History of Present Illness Chief Complaint: SOB History of Present Illness: 2 week hx of increasing SOB and wheezing. Pt reports that 1 week ago he presented to ED and was sent home with prednisone and azithromycin. He reports compliance with meds and f/u with Dr. Almaguer but continued a slow but steady decline. Also complains of cough that has been consistently not productive of sputum. Pt has been taking spiriva at home and dulera BID. Denies all other symptoms ED Course: azithromycin, rocephin, steroids - Allergies/Adverse Reactions Allergies Allergy/AdvReac Type Severity Reaction Status Date / Time lisinopril Allergy Severe Swollen Verified 10/18/18 23:57 Lips - Home Medications Medication Instructions Recorded Confirmed Type Amlodipine [Norvasc] 5 mg PO DAILY 10/05/17 10/19/18 History Finasteride [Proscar] 5 mg PO DAILY 10/05/17 10/19/18 History Tamsulosin HCl [Flomax] 0.4 mg PO DAILY 10/05/17 10/19/18 History Acetaminophen [Tylenol Regular 650 mg PO Q4H PRN tab 06/28/18 10/19/18 Rx Strength] Hydrochlorothiazide 12.5 mg PO QAM 09/01/18 10/19/18 History Codeine Phosphate/Guaifenesin 5 ml PO Q4HR PRN 10/19/18 10/19/18 History [Guaiatussin AC Liquid] Mometasone/Formoterol 100/5 2 puff INH BID 10/19/18 10/19/18 History [Dulera 100 mcg/5 mcg Inhaler] Tiotropium [Spiriva Handihaler] 18 mcg INH DAILY 10/19/18 10/19/18 History Levofloxacin [Levaquin] 750 mg PO 0600 #3 tab 10/21/18 Rx guaiFENesin/DM ER [Mucinex DM] 1 tab PO Q12HR #30 tab 10/21/18 Rx predniSONE 40 mg PO QAM-WM 3 Days #6 tab 10/21/18 Rx - History PMHx: HTN, COPD, BPH PSHx: none FHx: none Social: actively smokes 1/2 pack per day (cannot remember how many years of smoking), denies alcohol or drugs - Review of Systems General: denies: fever/chills, fatigue Eyes: denies: eye pain, vision changes ENT: reports: nasal congestion Respiratory: reports: cough, shortness of breath Cardiovascular: denies: chest pain, palpitation Gastrointestinal: denies: nausea, vomiting Genitourinary: denies: dysuria, polyuria Skin: denies: rashes, lesions Musculoskeletal: denies: tenderness, stiffness Neurological: denies: syncope, seizure Psychological: denies: anxiety, depression - Vital signs BP: 99/54, Pulse: 112, Resp: 20, Pain: 0, TMAX 99.9, O2 sat: 95 on Room Air, Time: 10/18/2018 20:45. weight: 44kg - Physical Exam Constitutional: NAD, awake, alert and oriented HEENT: EOMI, grossly normal vision, grossly normal hearing Neck: supple, trachea midline Chest: no-tender to palpation Heart: RRR, normal S1/S2 Lungs: other (bilat diffuse expiratory wheeze, L midlung expiratory rhonci) Abdomen: soft, non-tender Musculoskeletal: normal tone, other (cachectic) Neurological: no focal deficit, normal sensation Skin: no rash/lesions, good turgor Heme/Lymphatic: no unusual bruising or bleeding, no purpura Psychiatric: normal mood and affect, good judgment and insight FMR H&P: Results - Labs Result Diagrams: 10/21/18 04:11 10/19/18 07:13 Lab results: WBC 18.0 thou/uL (4.8-10.8) H 10/18/18 20:09 Hgb 11.9 g/dL (14.0-18.0) L 10/18/18 20:09 Hct 35.8 % (42.0-52.0) L 10/18/18 20:09 MCV 92.4 fL (78.0-98.0) 10/18/18 20:09 Plt Count 365 thou/uL (130-400) 10/18/18 20:09 FMR H&P: A/P - Problem List (1) Acute exacerbation of chronic obstructive pulmonary disease (COPD) Status: Acute Code(s): J44.1 - CHRONIC OBSTRUCTIVE PULMONARY DISEASE W (ACUTE ) EXACERBATION Comment: (2) BPH (benign prostatic hyperplasia) Status: Chronic Code(s): N40.0 - BENIGN PROSTATIC HYPERPLASIA WITHOUT LOWER URINRY TRACT SYMP (3) HTN (hypertension) Status: Chronic Code(s): I10 - ESSENTIAL (PRIMARY) HYPERTENSION (4) Protein-calorie malnutrition, moderate Status: Chronic Code(s): E44.0 - MODERATE PROTEIN-CALORIE MALNUTRITION (5) Tobacco abuse disorder Status: Chronic Code(s): Z72.0 - TOBACCO USE - Plan Respiratory distress 2/2 COPD exacerbation A- Pt has been frequently admitted for COPD, he is satting well on RA currently , SIRS + due to HR, RR, and WBC (though likely 2/2 steroids) and pt initial BP was 79/42 which responded well to 1L IVF. s/p rocephin and azithromycin P- continue steroids -duonebs q4hr -continue rocephin -procal elevated BNP -at baseline according to chart review Anemia -hgb at 11, unchanged from previous admissions. will monitor Protein malnutrition A- pt appearing cachectic P- dietary consult -dietary supplement WM HTN -home meds held until pt demonstrates consistent higher BPs BPH -home meds CODE: DNI, discussed with pt and his sister FMR H&P: Upper Level - Pertinent history 68 yr old male with PMH of COPD here for increased wheezing, SOB, cough. Got antibiotics(z-luis) and steroids in ER 3 days ago. Saw PCP 2 days ago but feels he has continued to decline. Non-productive cough but feels like he has chest congestion. Dulera twice a day at home and spireva once a day. No fever at home. Patient still smokes 8-9 cigarettes a day. - Pertinent findings Gen: Patient sitting comfortably in bed but has pursed lip breathing. eyes: sclera discolored in bilateral eyes- brownish discoloration with intrusion into iris on right eye. Mouth: poor dentition, patient has no teeth Heart: RRR, no M/R/G Lungs: Diffuse expiratory wheezing in all lung guo, does sound worse in LLL with some rhonchi Abd: soft, mild tenderness in epigastric region. Normal active BS. Ext: no edema in BLE. EKG: sinus tachycardia, no ST changes. QTc 452 - Plan Date/Time: 10/18/182057 I, [Cynthia Adkins], have evaluated this patient and agree with findings/plan as outlined by internal control consultant resident. Pertinent changes/additions are listed here. 68 yr old male with increased SOB, wheezing, and nonproductive cough sepsis 2/2 COPD exacerbation -satting well on room air -WBC elevated (on steroids), no fever, a-febrile, tachycardia, BP 79/42 at ER presentation and improved after 1 lt -cont gentle maintenance fluids. -needs more frequent nebulized bronchodilator treatments -check procal -if procal elevate, cont antibiotics, covered for 24 hours by azithromycin and rocephin Tobacco abuse -cessation counseling encouraged -nicotine patch HTN -cont home meds as BP tolerates BPH -cont home meds Protein-calorie Malnutrition -patient is cachetic -will hae nutrition consult Dispo: Obs to medical and likely will require 2 or less midnights PCP: Dr. Almaguer Addendum - Attending - Attending Attestation Date/Time: 10/22/180 I personally evaluated the patient and discussed the management with Dr. Albrecht on 10/18/18. I agree with the History, Examination, Assessment and Plan documented above with any addition or exceptions noted below. 68 y.o. M with h/o COPD, HTN, BPH here with SOB, cough with wheezing w/o rhales , afebrile, and no CXR evidence of infection obs'd for Exacerbation of COPD.
[2018-10-18 21:01] LABS: Band 2 % (5-11); Lymphocytes 22 % (21-51); MDiff Complete? YES; Monocytes 18 % (0-10); Neutrophil 58 % (42-75)
[2018-10-18 21:04] LABS: ALT (SGPT) 11 U/L (8-55); AST (SGOT) 14 U/L (5-34); Albumin 3.7 g/dL (3.4-4.8); Alkaline Phosphatase 58 U/L (40-150); Anion Gap 13 mmol/L (10-20); BUN (Urea Nitrogen) 13 mg/dL (8.4-25.7); Bilirubin, Total 1.9 mg/dL (0.2-1.2); Calc. Creatinine Clearance 0 mL/min (70-130); Calcium 9.7 mg/dL (7.8-10.44); Carbon Dioxide 30 mmol/L (23-31); Chloride 99 mmol/L (98-107); Estimated GFR-MDRD Greater than 90; Globulin 3.2 g/dL (2.4-3.5); Glucose 79 mg/dL (80-115); Potassium 3.7 mmol/L (3.5-5.1); Protein, Total 6.9 g/dL (5.8-8.1); Sodium 138 mmol/L (136-145)
[2018-10-18 21:18] LABS: Actual Bicarbonate (HCO3a) 28.1 mEq/L (22-28); Analyzer IN Cardio ER; Base Excess (BEa) 5.6 mEq/L (-2.0 to +3.0); CO2 Tension 34.1 mmHg (35.0-45.0); Calcium, Ionized 1.19 mmol/L (1.12-1.30); Carboxyhemoglobin (COHb) 1.5 gm% (0.0-3.0); Hemoglobin (Hb) 12.9 g/dL (14.0-18.0); O2 Tension (PaO2) 64.8 mmHg (> 80.0); Potassium - ABG Lab 3.52 mmol/L (3.70-5.30); pH, Arterial 7.53 (7.35-7.45)
[2018-10-18 21:20] LABS: ALV-art Gradient 42.305 (0-20); Puncture Site RRA
[2018-10-18] MEDS ORDERED: cefTRIAXone\\ROCEPHIN 2 GM VIAL ONE (21:20)
[2018-10-18] MEDS ORDERED: Azithromycin 500 MG VIAL ONE (22:57)
[2018-10-18 23:45] VITALS: BMI 16.7
[2018-10-18] MEDS ORDERED: Albuterol Sulfate 2.5 mg/3 ml Neb NEB PRN (23:46)
[2018-10-19 01:14] LABS: Troponin I 0.014 ng/mL (< 0.028)
[2018-10-19] MEDS ORDERED: Calcium Carbonate 500 MG ChewTAB PO PRN (01:15)
[2018-10-19] MEDS ORDERED: Acetaminophen 325 MG TAB PO PRN (01:15)
[2018-10-19] MEDS: Lactated Ringer's 1,000 ML IV SCH ×2 (01:15→16:30)
[2018-10-19] MEDS ORDERED: Ondansetron ODT 4 MG TAB PO PRN (01:15)
[2018-10-19] MEDS: Nicotine 21 MG PATCH TD SCH (01:28)
[2018-10-19 03:02] LABS: Troponin I Less than 0.010 ng/mL (< 0.028)
--- NOTE | 2018-10-19 06:58 | PDOC.FM ---
- Subjective Subjective: Patient doing well this AM. No significant overnight events. Patient states that he still smokes about 7-8 cigarettes per day. He states that he progressively became short of breath over the last week despite treatment. He feels better today. Denies fever, chills. - Objective MAR Reviewed: Yes Vital Signs & Weight: Vital Signs (12 hours) Temp Pulse Resp BP Pulse Ox 10/19/18 06:20 83 16 97 10/19/18 03:33 97.9 F 73 16 116/54 L 96 10/19/18 03:14 20 93 L 10/19/18 01:15 94 L 10/19/18 00:00 96 10/18/18 23:30 97.6 F 99 20 117/56 L 97 Weight Weight 47.174 kg Result Diagrams: 10/20/18 05:55 10/19/18 07:13 EKG Reviewed by me: Yes Radiology Reviewed by me: Yes Phys Exam - Physical Examination Constitutional: NAD cachectic HEENT: moist MMs Respiratory: wheezing present (Diffuse) Rhonchi throughout Cardiovascular: RRR Gastrointestinal: soft, non-tender, no distention Musculoskeletal: no edema, pulses present Neurological: non-focal, moves all 4 limbs Psychiatric: normal affect, A&O x 3 Skin: no rash, cap refill <2 seconds Dx/Plan (1) Acute exacerbation of chronic obstructive pulmonary disease (COPD) Code(s): J44.1 - CHRONIC OBSTRUCTIVE PULMONARY DISEASE W (ACUTE) EXACERBATION Status: Acute (2) BPH (benign prostatic hyperplasia) Code(s): N40.0 - BENIGN PROSTATIC HYPERPLASIA WITHOUT LOWER URINRY TRACT SYMP Status: Chronic (3) GERD (gastroesophageal reflux disease) Code(s): K21.9 - GASTRO-ESOPHAGEAL REFLUX DISEASE WITHOUT ESOPHAGITIS Status: Chronic (4) HTN (hypertension) Code(s): I10 - ESSENTIAL (PRIMARY) HYPERTENSION Status: Chronic (5) Non-compliance Code(s): Z91.19 - PATIENT'S NONCOMPLIANCE W OTH MEDICAL TREATMENT AND REGIMEN Status: Chronic (6) Protein-calorie malnutrition, moderate Code(s): E44.0 - MODERATE PROTEIN-CALORIE MALNUTRITION Status: Chronic (7) Tobacco abuse disorder Code(s): Z72.0 - TOBACCO USE Status: Chronic - Plan Plan: Respiratory distress 2/2 COPD exacerbation - Frequent admissions for COPD - Satting well on RA, not requiring O2 during this hospitalization - SIRS + d/t HR, RR, WBC (likely 2/2 steroids) - Duonebs q4h - Rocephin given in ED. Patient recently on Azithromcyin with no improvement in symptoms. - Procalcitonon mildly elevated at 0.84; repeat tomorrow AM - Continue home medications Dulera and Spiriva - CXR with hyperinflated lungs Likely sepsis possibly 2/2 CAP - Patient previously on azithromycin (1 wk ago) - Rocephin x1 in ED - Will transition to levoquin given underlying COPD and risk for pseudomonas - Patient with cough x2 weeks, leukocytosis, low BP Hypotension - s/p 1L IVF - BP WNL this AM at 116/54 Elevated BNP - At baseline according to chart review Normocytic anemia - hgb at 11, unchanged from previous admissions - Continue to monitor Protein malnutrition - Patient appears cachectic - Dietary consult - Dietary supplement WM - Albumin 3.7 - Consider pre-albumin HTN - Home meds held until pt demonstrates consistent higher BPs BPH - Home meds Leukocytosis - May be 2/2 steroid use - Procalcitonin elevated at 0.84 - Blood cultures pending; pt has been on antibiotics (Azithro), rocephin x1 - No fever or chills - In setting of low BP - Transition to levoquin given COPD and risk for pseudomonas Hyperbilirubinemia - Trend - Consider workup (conjugated vs. unconjugated) CODE: DNI, discussed with pt and his sister Dispo: Continue IV antibiotics. Pending blood cultures. Possible d/c home tomorrow pending patient respiratory status. Addendum - Attending - Attending Attestation Date/Time: 10/20/1800 I personally evaluated the patient and discussed the management with Dr. Honeycutt on 10/19/2018 I agree with the History, Examination, Assessment and Plan documented above with any addition or exceptions noted below - Patient reports SOB better. Still with dry cough. Afebrile VSS. A/P: 1) COPD exacerbation- continue nebs, steroids. Continue abx.
[2018-10-19 07:29] LABS: #Lymphocytes 1.3 thou/uL (1.20-3.40); #Monocytes 0.9 thou/uL (0.11-0.59); #Neutrophils 11.5 thou/uL (1.40-6.50); %Basophils 0.1 % (0.0-1.0); %Eosinophils 0.1 % (0.0-10.0); %Lymphocytes 9.7 % (21.0-51.0); %Monocytes 6.3 % (0.0-10.0); %Neutrophils 83.9 % (42.0-75.0); Hemoglobin 11.1 g/dL (14.0-18.0); Mean Corpuscular HGB CONC 33.1 g/dL (32.0-36.0); Mean Corpuscular Hemoglobin 30.8 pg (27.0-31.0); Mean Corpuscular Volume 93.1 fL (78.0-98.0); Platelet Count 318 thou/uL (130-400); RBC Distribution Width 12.7 % (11.5-14.5); Red Blood Cell (RBC) Count 3.59 mill/uL (4.70-6.10); White Blood Cell (WBC) Count 13.7 thou/uL (4.8-10.8)
[2018-10-19 07:49] LABS: Anion Gap 14 mmol/L (10-20); BUN (Urea Nitrogen) 17 mg/dL (8.4-25.7); Calc. Creatinine Clearance 58 mL/min (70-130); Calcium 8.4 mg/dL (7.8-10.44); Carbon Dioxide 23 mmol/L (23-31); Chloride 101 mmol/L (98-107); Estimated GFR-MDRD Greater than 90; Glucose 219 mg/dL (80-115); Sodium 134 mmol/L (136-145)
[2018-10-19] MEDS: Enoxaparin Sodium 40 MG/0.4 ML SYRINGE SC SCH (08:45)
[2018-10-19] MEDS: Tamsulosin HCl 0.4 MG CAP PO SCH (08:45)
[2018-10-19] MEDS: Finasteride 5 MG TAB PO SCH (08:45)
[2018-10-19] MEDS: predniSONE 20 MG TAB PO SCH (08:45)
[2018-10-19] MEDS ORDERED: cefTRIAXone\\ROCEPHIN 1 GM in Sodium Chloride 0.9% 100 ML IVPB SCH (22:00)
[2018-10-20] MEDS: Nicotine 21 MG PATCH TD SCH (04:32)
[2018-10-20] MEDS ORDERED: Chloraseptic Spray 180 ml Bottle PO PRN (06:08)
[2018-10-20] MEDS: Lactated Ringer's 1,000 ML IV SCH (06:46)
[2018-10-20 06:48] LABS: Hemoglobin 9.9 g/dL (14.0-18.0); Mean Corpuscular HGB CONC 31.5 g/dL (32.0-36.0); Mean Corpuscular Hemoglobin 29.1 pg (27.0-31.0); Mean Corpuscular Volume 92.3 fL (78.0-98.0); Mean Platelet Volume 6.9 fL (7.4-10.4); Platelet Count 328 thou/uL (130-400); RBC Distribution Width 12.7 % (11.5-14.5); Red Blood Cell (RBC) Count 3.39 mill/uL (4.70-6.10); White Blood Cell (WBC) Count 18.6 thou/uL (4.8-10.8)
[2018-10-20 06:59] LABS: Bilirubin, Direct 0.2 mg/dL (0.1-0.3); Bilirubin, Total 0.6 mg/dL (0.2-1.2)
--- NOTE | 2018-10-20 08:49 | PDOC.FM ---
- Subjective Subjective: Patient doing well this AM. He states he feels better than he did yesterday, but he is still getting short of breath with ambulation. He denies any chest pain or shortness of breath at rest currently. Patient still with cough. He states it is a dry cough, and he is not able to expectorate. - Objective MAR Reviewed: Yes Vital Signs & Weight: Vital Signs (12 hours) Temp Pulse Resp BP Pulse Ox 10/20/18 08:00 97.8 F 84 18 93/50 L 94 L 10/20/18 07:03 97 10/20/18 07:01 71 16 96 10/20/18 04:00 98.6 F 74 16 114/55 L 92 L 10/20/18 02:27 60 16 96 10/20/18 00:00 97.8 F 78 16 130/62 92 L 10/19/18 22:10 63 16 96 Weight Admit Weight 47.174 kg Weight 47.174 kg I&O: 10/19/18 10/20/18 10/21/18 06:59 06:59 06:59 Intake Total 3040 Output Total 700 Balance 2340 Result Diagrams: 10/20/18 05:55 10/19/18 07:13 EKG Reviewed by me: Yes Radiology Reviewed by me: Yes Phys Exam - Physical Examination Constitutional: NAD resting comfortably and watching tv cachectic appearing HEENT: moist MMs Diffuse wheezing with expiratory rhonchi anteriorly Cardiovascular: RRR Gastrointestinal: soft, non-tender, no distention Musculoskeletal: no edema, pulses present Neurological: non-focal, moves all 4 limbs Psychiatric: normal affect, A&O x 3 Skin: no rash, cap refill <2 seconds Dx/Plan (1) Acute exacerbation of chronic obstructive pulmonary disease (COPD) Code(s): J44.1 - CHRONIC OBSTRUCTIVE PULMONARY DISEASE W (ACUTE) EXACERBATION Status: Acute (2) BPH (benign prostatic hyperplasia) Code(s): N40.0 - BENIGN PROSTATIC HYPERPLASIA WITHOUT LOWER URINRY TRACT SYMP Status: Chronic (3) GERD (gastroesophageal reflux disease) Code(s): K21.9 - GASTRO-ESOPHAGEAL REFLUX DISEASE WITHOUT ESOPHAGITIS Status: Chronic (4) HTN (hypertension) Code(s): I10 - ESSENTIAL (PRIMARY) HYPERTENSION Status: Chronic (5) Non-compliance Code(s): Z - PATIENT'S NONCOMPLIANCE W OTH MEDICAL TREATMENT AND REGIMEN Status: Chronic (6) Protein-calorie malnutrition, moderate Code(s): E44.0 - MODERATE PROTEIN-CALORIE MALNUTRITION Status: Chronic (7) Tobacco abuse disorder Code(s): Z72.0 - TOBACCO USE Status: Chronic - Plan Plan: Respiratory distress 2/2 COPD exacerbation and possible CAP - Not requiring O2 - Still short of breath with ambulation - Diffuse wheezing, worse than yesterday - Continue q4h marisol duoneb treatments with q2h treatments PRN - Will add mucinex - Counseled on importance of smoking cessation - Continue levoquin (10/19) - Procal stable but did not downtrend; continue to trend - WBC increased to 18 today, but patient on steroids Likely sepsis possibly 2/2 CAP - Patient previously on azithromycin (1 wk ago) - Rocephin x1 in ED - Transitioned to levoquin given underlying COPD and risk for pseudomonas - Patient with cough x2 weeks, leukocytosis, low BP - Blood cultures negative to date Hypotension - s/p 1L IVF - BP WNL this AM - Will hold home BP meds at this time as BP is on lower end of normal - D/C fluids today and encourage PO intake Elevated BNP - At baseline according to chart review Normocytic anemia - hgb at 11, unchanged from previous admissions - Continue to monitor Protein malnutrition - Patient appears cachectic - Dietary consulted; appreciate recs - Dietary supplement WM - Albumin 3.7 - Consider pre-albumin - Ensure enlive BID HTN - Home meds held until pt demonstrates consistent higher BPs BPH - Home meds Leukocytosis - May be 2/2 steroid use - Procalcitonin elevated at 0.84, stable on repeat but did not downtrend - Blood cultures pending; pt has been on antibiotics (Azithro), rocephin x1 - No fever or chills - In setting of low BP - Transitioned to levoquin given COPD and risk for pseudomonas Hyperbilirubinemia - Trending down, normal this AM CODE: DNI, discussed with pt and his sister Dispo: Transition to PO antibiotics and monitor. Continue duoneb treatments and monitor respiratory status. Addendum - Attending - Attending Attestation Date/Time: 10/20/18 0496 I personally evaluated the patient and discussed the management with Dr. Honeycutt I agree with the History, Examination, Assessment and Plan documented above with any addition or exceptions noted below - Patient reports some increased SOB this morning. Still able to ambulate to bathroom. Afebrile VSS. A/P: 1) COPD exacerbation - continue nebs, steroids, abx.
[2018-10-20] MEDS ORDERED: Acetaminophen 325 MG TAB PO PRN (08:53)
[2018-10-20] MEDS: predniSONE 20 MG TAB PO SCH (08:56)
[2018-10-20] MEDS: Finasteride 5 MG TAB PO SCH (08:57)
[2018-10-20] MEDS: Tamsulosin HCl 0.4 MG CAP PO SCH (08:57)
[2018-10-20] MEDS: Enoxaparin Sodium 40 MG/0.4 ML SYRINGE SC SCH (08:57)
[2018-10-20] MEDS ORDERED: Spiriva 18 MCG CAP (Box of 5 Caps) INH SCH (09:00)
[2018-10-20 09:21] LABS: Band 2 % (5-11); Lymphocytes 17 % (21-51); MDiff Complete? YES; Monocytes 8 % (0-10); Neutrophil 72 % (42-75); Platelet Morphology Comment Appears Adequate; Polychromasia SLIGHT = 2-3 cells (100X) (0-2/hpf); Reactive Lymphocytes 1 % (0-10)
[2018-10-20] MEDS ORDERED: guaiFENesin/DM ER PO SCH (10:30)
--- NOTE | 2018-10-20 15:48 | PDOC.EVN ---
Event Note - Event Note Event Note: 10/20/2018 at 15:38 Residents received charlene from CM regarding obs status. Residents informed CM that patient would be transitioned to inpatient as he is not clinically improved. Patient has been admitted to the hospital several times in the last few months with COPD exacerbation. He also had sepsis likely 2/2 CAP given patient's clinical picture and physical exam findings on admission. Plan was to discharge patient home today if clinical status had improved; however, on evaluation this morning, patient's lung exam had declined. He had more wheezing throughout as compared to yesterday and was having shortness of breath with minimal exertion. Patient was just transitioned to PO antibiotics today, and it was felt that he needs to be watched more carefully for at least an additional day prior to d/c due to concerns for decline in status and readmission to hospital. Patient not currently requiring O2, but he does not clinically appear ready for d/c home at this time despite the fact that he is not requiring O2. We will continue to monitor patient and make the most appropriate medical decisions we can regarding patient's care.
[2018-10-20] MEDS: Mometasone/Formoterol 120 PUFF INHALER INH SCH (19:04)
[2018-10-20] MEDS: guaiFENesin/DM ER PO SCH (20:29)
[2018-10-21] MEDS: Nicotine 21 MG PATCH TD SCH (02:12)
[2018-10-21 04:24] LABS: #Lymphocytes 2.3 thou/uL (1.20-3.40); #Monocytes 1.3 thou/uL (0.11-0.59); %Lymphocytes 15.5 % (21.0-51.0); %Neutrophils 75.5 % (42.0-75.0); Hemoglobin 9.6 g/dL (14.0-18.0); Mean Corpuscular HGB CONC 32.8 g/dL (32.0-36.0); Mean Corpuscular Hemoglobin 30.9 pg (27.0-31.0); Mean Corpuscular Volume 94.1 fL (78.0-98.0); Mean Platelet Volume 6.7 fL (7.4-10.4); Platelet Count 320 thou/uL (130-400); RBC Distribution Width 12.8 % (11.5-14.5); White Blood Cell (WBC) Count 14.6 thou/uL (4.8-10.8)
[2018-10-21] MEDS: Mometasone/Formoterol 120 PUFF INHALER INH SCH (06:50)
[2018-10-21] MEDS: predniSONE 20 MG TAB PO SCH (08:10)
[2018-10-21] MEDS: Finasteride 5 MG TAB PO SCH (08:10)
[2018-10-21] MEDS: Enoxaparin Sodium 40 MG/0.4 ML SYRINGE SC SCH (08:11)
[2018-10-21] MEDS: guaiFENesin/DM ER PO SCH (08:11)
[2018-10-21] MEDS: Tamsulosin HCl 0.4 MG CAP PO SCH (08:11)
--- NOTE | 2018-10-21 08:50 | PDOC.FM ---
- Subjective Subjective: Patient resting in bed this AM. No significant overnight events. Patient states he was able to ambulate the halls yesterday with mild shortness of breath. He reports being back to "baseline" this AM. He lives with his daughter who is able to help him out at home. - Objective MAR Reviewed: Yes Vital Signs & Weight: Vital Signs (12 hours) Pulse Resp Pulse Ox 10/21/18 06:40 73 16 95 10/21/18 02:46 71 16 95 10/20/18 22:32 70 16 94 L Weight Admit Weight 47.174 kg Weight 47.174 kg I&O: 10/20/18 10/21/18 10/22/18 06:59 06:59 06:59 Intake Total 3040 1040 Output Total 700 Balance 2340 1040 Result Diagrams: 10/21/18 04:11 10/19/18 07:13 EKG Reviewed by me: Yes Radiology Reviewed by me: Yes Phys Exam - Physical Examination Constitutional: NAD HEENT: moist MMs Wheezing throughout, rhonchi LLL Cardiovascular: RRR Gastrointestinal: soft, no distention Musculoskeletal: no edema, pulses present Neurological: non-focal, moves all 4 limbs Psychiatric: normal affect, A&O x 3 Skin: no rash, cap refill <2 seconds Dx/Plan (1) Acute exacerbation of chronic obstructive pulmonary disease (COPD) Code(s): J44.1 - CHRONIC OBSTRUCTIVE PULMONARY DISEASE W (ACUTE) EXACERBATION Status: Acute (2) BPH (benign prostatic hyperplasia) Code(s): N40.0 - BENIGN PROSTATIC HYPERPLASIA WITHOUT LOWER URINRY TRACT SYMP Status: Chronic (3) GERD (gastroesophageal reflux disease) Code(s): K21.9 - GASTRO-ESOPHAGEAL REFLUX DISEASE WITHOUT ESOPHAGITIS Status: Chronic (4) HTN (hypertension) Code(s): I10 - ESSENTIAL (PRIMARY) HYPERTENSION Status: Chronic (5) Non-compliance Code(s): Z91.19 - PATIENT'S NONCOMPLIANCE W OTH MEDICAL TREATMENT AND REGIMEN Status: Chronic (6) Protein-calorie malnutrition, moderate Code(s): E44.0 - MODERATE PROTEIN-CALORIE MALNUTRITION Status: Chronic (7) Tobacco abuse disorder Code(s): Z72.0 - TOBACCO USE Status: Chronic - Plan Plan: Respiratory distress 2/2 COPD exacerbation and possible CAP - Not requiring O2 - Continue q4h marisol duoneb treatments with q2h treatments PRN - Continue mucinex - Counseled on importance of smoking cessation - Continue levoquin (10/19) x5 days - Procal downtrended this AM - WBC downtrending Likely sepsis possibly 2/2 CAP - Patient failed outpatient treatment for COPD - Rocephin x1 in ED - Transitioned to levoquin given underlying COPD and risk for pseudomonas - Patient with cough x2 weeks, leukocytosis, low BP, tachycardia, LLL rhonchi on exam - Blood cultures negative to date - Procal initially elevated, but has since downtrended Hypotension - s/p 1L IVF - BP WNL this AM - Will hold home BP meds at this time as BP is on lower end of normal Elevated BNP - At baseline according to chart review Normocytic anemia - hgb at 11, unchanged from previous admissions - Continue to monitor Protein malnutrition - Patient appears cachectic - Dietary consulted; appreciate recs - Dietary supplement WM - Albumin 3.7 - Ensure enlive BID HTN - Home meds held until pt demonstrates consistent higher BPs BPH - Home meds Leukocytosis - May be 2/2 steroid use - Procalcitonin elevated at 0.84, downtrending this AM - Blood cultures pending; pt has been on antibiotics (Azithro), rocephin x1 - No fever or chills - In setting of low BP and tachycardia - Transitioned to levoquin given COPD and risk for pseudomonas Hyperbilirubinemia, resolved CODE: DNI, discussed with pt and his sister Dispo: Patient transitioned to PO levaquin yesterday and appears to be stable from a respiratory standpoint. Plan to d/c home today given patient feels back to his baselinne. Encouraged patient to take medications as prescribed, to include antibiotics and steroids. Addendum - Attending Addendum - Attending - Attending Attestation Date/Time: 10/22/18 1017 I personally evaluated the patient and discussed the management with Dr. Honeycutt on 10/21/2018. I agree with the History, Examination, Assessment and Plan documented above with any addition or exceptions noted below - Patient states that his breathing is back at baseline. Afebrile VSS. A/P: 1) COPD exacerbation- improved; plan to d/c home today. Complete po steroid taper. Continue home inhalers.
[2018-10-21 08:57] VITALS: BP 143/65; TEMP 97.9
== END 2018-10-21 12:04 | disposition home or self-care (01) | DRG 871 ==
LOC: ERS 19:33 → ONC 20:58 → OBSVTOIN 10-20 15:48
PROVIDERS: ADMIT Family Medicine; ATTEND Family Medicine
DX: A41.9 Sepsis, unspecified organism (principal); J18.9 Pneumonia, unspecified organism; J44.1 Chronic obstructive pulmonary disease with (acute) exacerbation; E44.0 Moderate protein-calorie malnutrition; Z68.1 Body mass index [BMI] 19.9 or less, adult; J44.0 Chronic obstructive pulmonary disease with (acute) lower respiratory infection; Z66 Do not resuscitate; N40.0 Benign prostatic hyperplasia without lower urinary tract symptoms; K21.9 Gastro-esophageal reflux disease without esophagitis; I10 Essential (primary) hypertension; D72.829 Elevated white blood cell count, unspecified; T38.0X5A Adverse effect of glucocorticoids and synthetic analogues, initial encounter; Z91.19 Patient's noncompliance with other medical treatment and regimen; D64.9 Anemia, unspecified; F17.210 Nicotine dependence, cigarettes, uncomplicated; E80.6 Other disorders of bilirubin metabolism; Z88.8 Allergy status to other drugs, medicaments and biological substances; Z79.899 Other long term (current) drug therapy; Z71.6 Tobacco abuse counseling
CPT/HCPCS: 36415; 71045; 80048; 80053; 82247; 82248; 82805; 83880; 84145; 84484; 85025; 87040; 93005; 93010; 94640; 96365; 96375; J0456; J0696; J1650; J1956; J2930; J7512; J7611; J7620

== ENCOUNTER 2019-05-01 17:44 | Emergency (ER) | payer MEDICARE, MEDICAID ==
[2019-05-01 18:26] LABS: Hemoglobin 11.6 g/dL (14.0-18.0); Mean Corpuscular HGB CONC 34.2 g/dL (32.0-36.0); Mean Corpuscular Hemoglobin 32.2 pg (27.0-31.0); Mean Corpuscular Volume 94.2 fL (78.0-98.0); Mean Platelet Volume 7.3 fL (7.4-10.4); Platelet Count 209 thou/uL (130-400); RBC Distribution Width 12.9 % (11.5-14.5); Red Blood Cell (RBC) Count 3.61 mill/uL (4.70-6.10); White Blood Cell (WBC) Count 8.2 thou/uL (4.8-10.8)
--- NOTE | 2019-05-01 18:32 | RAD ---
EXAM: XR Chest 1 View Portable PROVIDED CLINICAL HISTORY: Shortness of breath COMPARISON: 10/18/2018 FINDINGS: Cardiac and mediastinal silhouette is within normal limits. Patchy airspace disease right lower lung zone. Lungs appear otherwise clear. No pleural fluid or pneumothorax apparent. IMPRESSION: Patchy right lower lung zone airspace disease, compatible with pneumonia in the appropriate clinical context. Follow-up after treatment is recommended to document resolution.
[2019-05-01] MEDS ORDERED: methylPREDNISolone Sod Succ/PF 125 MG/2 ML VIAL ONE (18:40)
[2019-05-01 18:47] LABS: Band 1 % (5-11); Eosinophils 1 % (0-10); Lymphocytes 36 % (21-51); MDiff Complete? YES; Monocytes 10 % (0-10); Neutrophil 43 % (42-75); Platelet Morphology Comment Appears Adequate; Polychromasia SLIGHT = 2-3 cells (100X) (0-2/hpf); Reactive Lymphocytes 9 % (0-10); Target Cells SLIGHT = 2-5 cells (100X) (0-1/hpf)
[2019-05-01 19:03] LABS: ALT (SGPT) 8 U/L (8-55); AST (SGOT) 14 U/L (5-34); Albumin 4.1 g/dL (3.4-4.8); Alkaline Phosphatase 74 U/L (40-110); Anion Gap 20 mmol/L (10-20); BUN (Urea Nitrogen) 16 mg/dL (8.4-25.7); Bilirubin, Total 1.1 mg/dL (0.2-1.2); Calc. Creatinine Clearance 0 mL/min (70-130); Calcium 9.6 mg/dL (7.8-10.44); Carbon Dioxide 22 mmol/L (23-31); Chloride 102 mmol/L (98-107); Estimated GFR-MDRD 73; Globulin 3.4 g/dL (2.4-3.5); Glucose 105 mg/dL (80-115); Potassium 3.5 mmol/L (3.5-5.1); Protein, Total 7.5 g/dL (5.8-8.1); Sodium 140 mmol/L (136-145)
[2019-05-01] MEDS ORDERED: Albuterol Sulfate 2.5 mg/3 ml Neb ONE (19:39)
== END 2019-05-01 20:25 | disposition home or self-care (01) ==
LOC: ERS 17:44
DX: J18.9 Pneumonia, unspecified organism (principal); J44.1 Chronic obstructive pulmonary disease with (acute) exacerbation; K21.9 Gastro-esophageal reflux disease without esophagitis; I10 Essential (primary) hypertension; N40.0 Benign prostatic hyperplasia without lower urinary tract symptoms; F17.210 Nicotine dependence, cigarettes, uncomplicated; Z79.899 Other long term (current) drug therapy
CPT/HCPCS: 36415; 71045; 80053; 83880; 84484; 85025; 93005; 94640; 96372; J2930; J7611; J7620

== ENCOUNTER 2019-11-20 16:23 | Inpatient (IN) | payer MEDICARE, MEDICAID, OTHER ==
[2019-11-20] MEDS ORDERED: Ondansetron PF 4 MG/2 ML Vial ONE (17:11)
[2019-11-20] MEDS ORDERED: Morphine 2 MG/ML SYRINGE ONE (17:12)
--- NOTE | 2019-11-20 17:28 | PDOC.FPRHP ---
- History of Present Illness Chief Complaint: Abdominal pain History of Present Illness: Mr. Johnson is a 69yoM with a PMH of HTN and COPD who presented to the ED in [place] for increasing RUQ abdominal pain that started Friday. He has never had pain like this before. At it's worst its 01/30. It's currently 7/10 without radiation. He does not know how to describe the pain. He states he has had a decreased appetite, but denies nausea or vomiting. The morphine and zofran he received in the ED has alleviated his pain slightly. He has chronic cough - he has a diagnosis COPD. He takes his inhalers ( Pulmicort and Advair) daily. He was recently swabbed for COVID on 11/10 and it was negative. He was recently treated with azithromycin and prednisone for a COPD exacerbation. He has a cough and shortness of breath with exertion that he feels is close to his baseline. ED Course: Initially presented to [facility] for abdominal pain. Morphine 2, Zofran 4, NS 100/hour - Allergies/Adverse Reactions Allergies Allergy/AdvReac Type Severity Reaction Status Date / Time lisinopril Allergy Severe Swollen Verified 11/20/19 20:43 Lips - Home Medications Medication Instructions Recorded Confirmed Type Tamsulosin HCl [Flomax] 0.4 mg PO DAILY 10/05/17 11/20/19 History Hydrochlorothiazide 12.5 mg PO QAM 09/01/18 11/20/19 History Amlodipine [Norvasc] 5 mg PO DAILY 07/31/19 11/20/19 History Budesonide [Pulmicort Flexhaler] 2 puff INH BID 07/31/19 11/20/19 History Finasteride [Proscar] 5 mg PO DAILY 07/31/19 11/20/19 History Fluticasone/Salmeterol [Advair 1 puff INH BID 07/31/19 11/20/19 History Diskus 100/50] - History PMHx: HTN COPD BPH PSHx: Denies FHx: Does not endorse. Social: actively smokes 1/2 pack per day, started at a young age. denies alcohol or drugs - Review of Systems General: reports: weight/appetite/sleep changes. denies: fever/chills, night sweats, fatigue Eyes: denies: eye pain, vision changes ENT: reports: nasal congestion, rhinorrhea Respiratory: reports: cough, exercise intolerance. denies: congestion, shortness of breath Cardiovascular: denies: chest pain, palpitation, edema, paroxysmal nocturnal dyspnea, orthopnea Gastrointestinal: reports: abdominal pain. denies: nausea, vomiting, diarrhea, constipation, GI bleeding Genitourinary: denies: incontinence, dysuria, polyuria Skin: denies: rashes, lesions Musculoskeletal: denies: pain, tenderness Neurological: denies: numbness, syncope, seizure, weakness - Vital signs 126/60, MAP: 82, Pulse: 66, Resp: 18, Temp: 97.5 (Oral), Pain: 7, O2 sat: 96 on (Room Air) Weight: 42.6kg - Physical Exam Constitutional: NAD, awake, alert and oriented HEENT: normocephalic and atraumatic, PERRLA, EOMI, grossly normal vision, grossly normal hearing, MMM, oropharynx clear Neck: supple, trachea midline Heart: RRR, normal S1/S2, no murmurs/rubs/gallops, pulses present, no edema Lungs: no respiratory distress, good air movement -Lungs: Inspiratory and Expiratory wheezes heard throughout. Abdomen: soft, bowel sounds present, no masses/distention -Abdomen: Tender to palpation over midepigastrum and RUQ Musculoskeletal: normal structure, normal tone Neurological: no focal deficit, CN II-XII intact Skin: no rash/lesions, good turgor, capillary refill <2 seconds Heme/Lymphatic: no unusual bruising or bleeding, no purpura Psychiatric: normal mood and affect, good judgment and insight, intact recent and remote memory FMR H&P: Results - Radiology Interpretation CT scan - abdomen Status: report reviewed by me (Dilated pancreatic duct. Bilateral renal cysts.) FMR H&P: A/P - Problem List (1) Pancreatitis Current Visit: Yes Status: Acute Code(s): K85.90 - ACUTE PANCREATITIS WITHOUT NECROSIS OR INFECTION, UNSP (2) COPD (chronic obstructive pulmonary disease) Current Visit: Yes Status: Acute (3) GERD (gastroesophageal reflux disease) Current Visit: No Status: Chronic Code(s): K21.9 - GASTRO-ESOPHAGEAL REFLUX DISEASE WITHOUT ESOPHAGITIS (4) HTN (hypertension) Current Visit: No Status: Chronic Code(s): I10 - ESSENTIAL (PRIMARY) HYPERTENSION (5) Tobacco abuse disorder Current Visit: No Status: Chronic Code(s): Z72.0 - TOBACCO USE - Plan Acute pancreatitis -Admit to medical floor for monitoring -CT revealed dilated pancreatic duct. -Labs and imaging not consistent with gallstones, however will order RUQ US to further investigate. -Will likely consult GI in the morning for recommendations. Patient may require ERCP or endoscopic US to identify cause for dilation. -NPO with LR @ 125mL/hour. -Morphine prn for pain. -Complained of epigastric burning. Added IV Pepcid. HTN -Will monitor BP -Takes amlodipine at home, but NPO. -Hydralazine 10mg IV q 4hr prn for SBP > 180. COPD -Currently 96% on RA. Does not appear to be in exacerbation. -On Pulmicort and Advair at home. Will continue Advair. -DuoNebs scheduled as he is currently wheezing. -Albuterol prn BPH -Takes finasteride and flomax at home. -Will closely monitor urinary output. Dispo: Stable. Admit to medical inpatient. Likely LOS > 48 hours. Code: Full VTE ppx: Weight dosed lovenox IV Fluids: LR @ 125mL/hr. FMR H&P: Upper Level - Plan Date/Time: 11/20/191726 This is a 69 yo M being admitted for treatment and evaluation of pancreatitis. He has PMH of GERD, HTN, COPD, and BPH. He has had abdominal pain for 5 days, describe as sharp, epigastric and radiates to RUQ, worse after eating. Denies vomiting, denies hematochezia, or melena. Patient denies history of alcohol use or gallstones. Pain is much improved after morphine. Abdominal exam significant for pain to RUQ and Epigastrium, no guarding, rebound, or distension. Lipase 1290, CT scan showed dilated pancreatic duct to 5mm. RUQ ordered. BISAP 1, only for age. Differential includes gallstones vs pancreatic cancer. NPO, fluids, pain control. GI consult in AM. Additionally, Elizabeth has had chronic cough and shortness of breath which are about at baseline per his report. O2 sats doing well on RA. Unlikely to be COPD exacerbation. COVID negative 11/10. Just finished course of Azithromycin and steroids. Lung exam with inspiratory and expiratory wheezes bilaterally, good air movement, no resp distress. Betsy scheduled. Addendum - Attending - Attending Attestation Date/Time: 11/20/192127 I personally evaluated the patient and discussed the management with Dr. Browning. I agree with the History, Examination, Assessment and Plan documented above with any addition or exceptions noted below.
[2019-11-20] MEDS ORDERED: Nicotine 14 MG PATCH TD PRN (18:18)
[2019-11-20] MEDS ORDERED: Ondansetron PF 4 MG/2 ML Vial IVP PRN (18:18)
[2019-11-20] MEDS ORDERED: Albuterol Sulfate 2.5 mg/3 ml Neb NEB PRN (18:18)
[2019-11-20] MEDS ORDERED: Morphine 4 MG/ML VIAL SLOW IVP PRN (18:23)
[2019-11-20] MEDS ORDERED: hydrALAZINE 20 MG/ML VIAL SLOW IVP PRN (19:12)
[2019-11-20 19:55] VITALS: BMI 14.6
[2019-11-20] MEDS: Lactated Ringer's 1,000 ML IV SCH (20:12)
[2019-11-20] MEDS: Famotidine/PF 20 mg/2ml Vial SLOW IVP SCH (20:12)
--- NOTE | 2019-11-20 21:00 | ULT ---
RIGHT UPPER QUADRANT ULTRASOUND CLINICAL HISTORY: History of pancreatitis. COMPARISON: CT the chest, abdomen and pelvis dated November 20, 2019 FINDINGS: Liver:There is mild intrahepatic biliary ductal dilatation. No focal hepatic lesion is evident. Intrahepatic bile ducts: Mild intrahepatic biliary ductal dilatation; Common bile duct: Size 1 cm. Gallbladder: No visible stones are evident. No colonic wall thickening is noted. Argueta's sign:None Main portal vein:Patent with hepatopedal flow. Pancreas:Visualized pancreas appears normal. Right kidney: Right kidney measures 10.5 x 3.7 x 4 cm. There are small right renal cysts. One is see n measuring 1.3 cm in the lower pole. There is an 8 mm cyst in the superior pole. Additional findings: None. IMPRESSION: Biliary dilatation without visible gallstones. Distal obstructive process cannot be excluded. ERCP or MRCP may be helpful for further evaluation. Right renal cysts
[2019-11-21] MEDS: Morphine 2 MG/ML SYRINGE SLOW IVP PRN ×3 (02:22→23:00)
[2019-11-21] MEDS: Lactated Ringer's 1,000 ML IV SCH ×5 (02:22→23:01)
[2019-11-21 05:44] LABS: Anion Gap 14 mmol/L (10-20); BUN (Urea Nitrogen) 10 mg/dL (8.4-25.7); Calc. Creatinine Clearance 54 mL/min (70-130); Calcium 9.3 mg/dL (7.8-10.44); Carbon Dioxide 23 mmol/L (23-31); Chloride 101 mmol/L (98-107); Estimated GFR-MDRD Greater than 90; Lipase 572 U/L (8-78); Potassium 3.9 mmol/L (3.5-5.1); Sodium 134 mmol/L (136-145)
[2019-11-21 05:55] LABS: Glucose 51 mg/dL (80-115)
[2019-11-21] MEDS ORDERED: Dextrose 25% Abboject 10 ML SYRINGE SLOW IVP PRN (06:11)
--- NOTE | 2019-11-21 06:25 | PDOC.FM ---
- Subjective Subjective: Pt's abdominal pain has improved. Feeling thirsty and hungry this morning. Had some low sugars but was asymptomatic from this. - Objective Vital Signs & Weight: Vital Signs (12 hours) Temp Pulse Resp BP Pulse Ox 11/21/19 04:00 98.0 F 62 18 107/53 L 94 L 11/21/19 00:26 72 16 97 11/20/19 23:51 98.0 F 72 18 96/55 L 95 11/20/19 21:04 68 12 98 11/20/19 19:00 99 11/20/19 18:45 97.5 F L 68 18 102/64 99 Weight Weight 40.914 kg I&O: 11/19/19 11/20/19 11/21/19 06:59 06:59 06:59 Intake Total 1350 Output Total 500 Balance 850 Result Diagrams: 11/21/19 05:06 11/21/19 05:10 Phys Exam - Physical Examination Constitutional: NAD HEENT: sclera anicteric Neck: full ROM Respiratory: clear to auscultation bilateral Cardiovascular: RRR Gastrointestinal: soft, no distention Tender to epigastrium and RUQ Musculoskeletal: no edema Neurological: moves all 4 limbs Psychiatric: normal affect, A&O x 3 Dx/Plan - Plan Plan: Acute pancreatitis -CT revealed dilated pancreatic duct. -RUQ US showed dilated biliary duct with no visible obstruction -Conjugated bilirubin elevated at 0.5 with T bili at upper limits of normal at 1.2 -Will consult GI this AM for possible ERCP or MRCP -LR @ 200mL/hour. -Morphine prn for pain. -Abdominal pain improved - will give clears for diet HTN -Will monitor BP -Takes amlodipine at home, but NPO. -Hydralazine 10mg IV q 4hr prn for SBP > 180. COPD -Currently 96% on RA. Does not appear to be in exacerbation. -On Pulmicort and Advair at home. Will continue Advair. -DuoNebs scheduled as he is currently wheezing. -Albuterol prn BPH -Takes finasteride and flomax at home. -Will closely monitor urinary output. Dispo: Medical inpatient for pain control. Likely LOS > 48 hours. Code: Full VTE ppx: Weight dosed lovenox IV Fluids: LR @ 125mL/hr. Addendum - Attending - Attending Attestation Date/Time: 11/21/19 [id number] I personally evaluated the patient and discussed the management with [Belkis ] I agree with the History, Examination, Assessment and Plan documented above with any addition or exceptions noted below.
[2019-11-21] MEDS ORDERED: Dextrose 50% Abboject 50 ML SYRINGE SLOW IVP PRN (06:26)
[2019-11-21 06:41] LABS: #Basophils 0.1 thou/uL (0.0-0.2); #Eosinphils 0.1 thou/uL (0.0-0.7); #Lymphocytes 1.9 thou/uL (1.20-3.40); #Neutrophils 3.8 thou/uL (1.40-6.50); %Basophils 1.4 % (0.0-1.0); %Eosinophils 0.9 % (0.0-10.0); %Monocytes 14.3 % (0.0-10.0); %Neutrophils 55.4 % (42.0-75.0); Mean Corpuscular Hemoglobin 33.3 pg (27.0-31.0); Mean Platelet Volume 7.8 fL (7.4-10.4); Platelet Count 304 thou/uL (130-400); RBC Distribution Width 13.7 % (11.5-14.5); Red Blood Cell (RBC) Count 3.61 mill/uL (4.70-6.10); White Blood Cell (WBC) Count 6.8 thou/uL (4.8-10.8)
[2019-11-21 06:56] LABS: ALT (SGPT) 10 U/L (8-55); AST (SGOT) 20 U/L (5-34); Albumin 3.7 g/dL (3.4-4.8); Alkaline Phosphatase 55 U/L (40-110); Bilirubin, Direct 0.5 mg/dL (0.1-0.3); Bilirubin, Total 1.2 mg/dL (0.2-1.2); Protein, Total 6.8 g/dL (5.8-8.1)
[2019-11-21] MEDS: Enoxaparin Sodium 30 MG/0.3 ML SYRINGE SC SCH (08:26)
[2019-11-21] MEDS: Famotidine/PF 20 mg/2ml Vial SLOW IVP SCH ×2 (08:26→20:08)
--- NOTE | 2019-11-21 14:09 | MRI ---
MRI ABDOMEN WITHOUT CONTRAST AND MRCP: Date: 11/21/2019 HISTORY: Dilated pancreatic duct, common bile duct, and pancreatitis. FINDINGS: Exam limited due to motion artifact and absence of IV contrast. No gallstones are seen. There is dilatation of the biliary ducts with the proximal common bile duct m easuring 12.0 mm and the pancreatic head measuring 9.0 mm. The pancreatic duct is dilated, measuring 6.0 mm. No filling defects are seen in the dilated bile ducts or the pancreatic duct. The liver, sple en, and adrenal glands are unremarkable. Bilateral renal cysts are present. No peripancreatic fluid c ollection is noted. No portal splenic venous thrombosis seen. No free fluid is seen in the abdomen. T here is no evidence of aneurysmal dilatation of the abdominal aorta. The bone marrow signal is normal . IMPRESSION: 1. Dilated biliary and pancreatic ducts without evidence of cholelithiasis or choledocholithiasis. F urther evaluation with endoscopic ultrasound is recommended. 2. Bilateral renal cysts. POS: OFF
--- NOTE | 2019-11-21 23:58 | CON ---
DATE OF CONSULTATION: 11/21/2019 REASON FOR CONSULTATION: Acute pancreatitis, abnormal GI imaging showing dilation of the biliary and pancreatic ducts. CONSULTING PHYSICIAN: Dr. Stanley Tamayo. HISTORY OF PRESENT ILLNESS: The patient is a 69-year-old male with past medical history of hypertension, COPD, benign prostatic hyperplasia, and hypertension, presenting with complaints of right upper quadrant abdominal pain. He states that he was in the usual state of health until approximately 4 to 5 days ago when he began having increased right upper quadrant abdominal pain, characterized as a burning-type sensation, was intermittent, would last for minutes to hours, was nonradiating and reached a severity of 8/10. This pain was worse with eating/drinking (but could not tell me how long after he ate the pain would occur) and walking, better with only the administration of pain medications during this hospitalization or with just waiting for the pain to resolve on its own. With the increased frequency of this pain, it then prompted him to seek healthcare assistance in the [place] [facility] and while in the [place] [facility], he was noted to have a CT scan showing dilation of both his intrahepatic, extrahepatic, and pancreatic ducts concerning for liver pathology and ultimately transferred to [facility] for further evaluation. Currently, the patient states that he is doing better, but adds that he has been having weight loss of approximately 7 pounds over the last 6 to 12 months. Otherwise, he denies any nausea, vomiting, fevers, chills, hematemesis, melena, hematochezia, dysphagia, or odynophagia. Of note, the patient just finished a course of azithromycin and prednisone after being diagnosed with a COPD exacerbation with the onset of this pain approximately 2 days prior to finishing out these medications. REVIEW OF SYSTEMS: A 10 category review of systems was obtained with all responses negative except for the pertinent positives as listed in HPI. PAST MEDICAL HISTORY: As per HPI. PAST SURGICAL HISTORY: None. FAMILY HISTORY: Denies any GI malignancies. SOCIAL HISTORY: Smokes approximately 1 pack per day and has been smoking for 20+ years. Drinks approximately 3 to 4 beers per month, but denies any illicit drug use. OUTPATIENT MEDICATIONS: Reviewed. ALLERGIES: LISINOPRIL. PHYSICAL EXAMINATION: VITAL SIGNS: Temperature 97.6, pulse 65, blood pressure 101/61, respiratory rate 16, saturating 95% on room air. GENERAL: The patient was lying in bed, in no acute distress. Alert and oriented x4. HEENT: Normocephalic and atraumatic. NECK: Supple. No JVD or scleral icterus noted. CARDIOVASCULAR: Regular rate and rhythm with no discernible murmurs, gallops, or rubs. RESPIRATORY: Clear to auscultation bilaterally with no discernible wheezes or rales. ABDOMEN: Normoactive bowel sounds. Soft, nondistended. Mild tenderness to palpation in the right upper quadrant/right mid abdomen. EXTREMITIES: No cyanosis, clubbing, or edema, although cachectic-appearing extremities. LABORATORY DATA: CBC with a white blood cell count of 6.8, hemoglobin 12, hematocrit 36.5, platelets 304. Chemistry with a sodium of 134, potassium 3.9, chloride 101, CO2 of 23, BUN 10, creatinine 0.76, glucose 51, AST 20, ALT 10, alkaline phosphatase 55, total bilirubin 1.2, lipase 572. IMAGING DATA: Abdominal ultrasound obtained on November 20, 2019, showed mild intrahepatic dilatation with the common bile duct measuring approximately 1 cm in size. A CT scan was also obtained on November 20, 2019, which showed emphysematous changes within the bilateral lungs as well as dilation of the intrahepatic biliary tree and dilation of the pancreatic duct to approximately 5 mm in size. ASSESSMENT AND PLAN: The patient is a 69-year-old male with past medical history of hypertension, chronic obstructive pulmonary disease, and BPH, presenting with right upper quadrant abdominal pain and abnormal GI imaging showing dilation of the intrahepatic system and pancreatic duct. Right upper quadrant abdominal pain. The patient is presenting with fairly acute onset of right upper quadrant abdominal pain characterized as a burning-type sensation and intermittently occurring over the last 4 to 5 days. Upon review of the patient's imaging and labs, he does have some dilation of both the intrahepatic and extrahepatic biliary tree in addition to the pancreatic duct, but does not have any concurrent elevation in his LFTs that might be indicative of choledocholithiasis. He does have an elevated lipase as well that does meet criteria for acute uncomplicated pancreatitis, but his current imaging does not specifically state any inflammatory change surrounding the pancreas itself again confirming this diagnosis as well. Differential could include pancreatitis, pancreatic malignancy, peptic ulcer disease with possible perforation, gastritis, choledocholithiasis (less likely given current laboratory values) and/or occult neoplasm. RECOMMENDATIONS: 1. Would obtain an MRCP for further evaluation of the biliary tree and hopefully better evaluation of the pancreatic head for possible malignancy. 2. Pain control per primary team. 3. Would continue patient on resuscitative fluid to 200 mL/h for the first 8 hours, then decrease to 150 mL/h for the next 16 hours as part of treatment for pancreatitis. 4. We will continue n.p.o. status until tomorrow and then reassess the patient with advancing the diet as tolerated. 5. Would obtain a cholesterol panel in the morning for possible hypertriglyceridemia generating pancreatitis. We will continue to follow. Please call with any questions. Job ID: [id number]
[2019-11-22] MEDS: Lactated Ringer's 1,000 ML IV SCH ×5 (02:49→20:28)
[2019-11-22] MEDS: Morphine 2 MG/ML SYRINGE SLOW IVP PRN ×2 (05:16→20:31)
[2019-11-22 06:09] LABS: Hemoglobin 10.7 g/dL (14.0-18.0); Mean Corpuscular Hemoglobin 33.9 pg (27.0-31.0); Mean Corpuscular Volume 99.5 fL (78.0-98.0); Mean Platelet Volume 6.7 fL (7.4-10.4); Platelet Count 258 thou/uL (130-400); RBC Distribution Width 13.2 % (11.5-14.5); Red Blood Cell (RBC) Count 3.16 mill/uL (4.70-6.10); White Blood Cell (WBC) Count 4.2 thou/uL (4.8-10.8)
[2019-11-22 06:10] LABS: Band 1 % (5-11); Hypochromia SLIGHT = 6-15 cells (100X) (0-5/hpf); Lymphocytes 36 % (21-51); MDiff Complete? YES; Monocytes 4 % (0-10); Neutrophil 59 % (42-75); Platelet Morphology Comment Appears Adequate
[2019-11-22 06:12] LABS: ALT (SGPT) 7 U/L (8-55); AST (SGOT) 17 U/L (5-34); Albumin 3.1 g/dL (3.4-4.8); Alkaline Phosphatase 47 U/L (40-110); Anion Gap 9 mmol/L (10-20); BUN (Urea Nitrogen) 5 mg/dL (8.4-25.7); Bilirubin, Total 0.9 mg/dL (0.2-1.2); Calc. Creatinine Clearance 53 mL/min (70-130); Carbon Dioxide 27 mmol/L (23-31); Cardiac Risk 2.5 (Less than 4.5); Chloride 102 mmol/L (98-107); Cholesterol 128 mg/dl (< 200 Desired); Estimated GFR-MDRD Greater than 90; Globulin 2.7 g/dL (2.4-3.5); Glucose 91 mg/dL (80-115); HDL Cholesterol 52 mg/dL (>60 Neg Risk); LDL Cholesterol, Calculated 64 mg/dL; Lipase 379 U/L (8-78); Potassium 3.7 mmol/L (3.5-5.1); Protein, Total 5.8 g/dL (5.8-8.1); Sodium 134 mmol/L (136-145); Triglycerides 58 mg/dL (Less than 150)
--- NOTE | 2019-11-22 07:26 | PDOC.FM ---
- Subjective Subjective: Pt is improving today. He has been able to tolerate PO intake. His abdominal tenderness is less than yesterday. He has no other complaints. - Objective Vital Signs & Weight: Vital Signs (12 hours) Temp Pulse Resp BP BP Pulse Ox 11/22/19 06:46 63 12 94 L 11/22/19 04:09 97.5 F L 66 18 120/55 L 94 L 11/22/19 00:16 64 12 94 L 11/21/19 23:07 97.8 F 65 19 125/65 95 11/21/19 19:35 94 L 11/21/19 19:27 98 F 71 16 108/56 L 90 L Weight Weight 40.914 kg I&O: 11/21/19 11/22/19 11/23/19 06:59 06:59 06:59 Intake Total 1350 5400 Output Total 500 2250 Balance 850 3150 Result Diagrams: 11/22/19 05:30 11/22/19 05:30 Phys Exam - Physical Examination Constitutional: NAD HEENT: PERRLA, moist MMs Neck: no JVD, full ROM Respiratory: no wheezing, clear to auscultation bilateral Cardiovascular: RRR, no significant murmur Gastrointestinal: soft, no distention, positive bowel sounds tender to moderate palpation in epigastric region Musculoskeletal: no edema, pulses present Neurological: normal sensation, moves all 4 limbs Psychiatric: normal affect, A&O x 3 Dx/Plan (1) Dilated bile duct Code(s): K83.8 - OTHER SPECIFIED DISEASES OF BILIARY TRACT Status: Acute (2) Dilated pancreatic duct Code(s): K86.89 - OTHER SPECIFIED DISEASES OF PANCREAS Status: Acute (3) COPD (chronic obstructive pulmonary disease) Status: Acute (4) Pancreatitis Code(s): K85.90 - ACUTE PANCREATITIS WITHOUT NECROSIS OR INFECTION, UNSP Status: Acute (5) HTN (hypertension) Code(s): I10 - ESSENTIAL (PRIMARY) HYPERTENSION Status: Chronic - Plan Plan: Acute pancreatitis - improving -CT revealed dilated pancreatic duct. -RUQ US showed dilated biliary duct with no visible obstruction -Conjugated bilirubin elevated at 0.5 with T bili at upper limits of normal at 1.2 -GI consulted, Dr. Stephen recommended triglyceride (WNL), MRCP revealed dilated biliary and pancreatic ducts w/o evidence of stone. -LR @ 200mL/hour decreased to 150 ml/hr -Morphine prn for pain. -Abdominal pain improved - will advance per GI rec's -Unsure pt's alcohol intake HTN -Will monitor BP -Takes amlodipine at home, but NPO. COPD -Currently 96% on RA. Does not appear to be in exacerbation. -On Pulmicort and Advair at home. Will continue Advair. -no wheezing this am -Albuterol prn BPH -Takes finasteride and flomax at home. -Will closely monitor urinary output. Dispo: Medical inpatient for pain control. Likely LOS > 48 hours. Code: Full VTE ppx: Weight dosed lovenox IV Fluids: LR @ 150 mL/hr. Addendum - Attending - Attending Attestation Date/Time: 11/22/19 2696 I personally evaluated the patient and discussed the management with Dr. Mcclellan. I agree with the History, Examination, Assessment and Plan documented above with any addition or exceptions noted below. ERCP today with GI. Awaiting recommendations.
[2019-11-22] MEDS: Enoxaparin Sodium 30 MG/0.3 ML SYRINGE SC SCH (08:05)
[2019-11-22] MEDS: Famotidine/PF 20 mg/2ml Vial SLOW IVP SCH ×2 (08:05→20:28)
[2019-11-22] MEDS ORDERED: Iopamidol 50 ML FS ONE (11:05)
[2019-11-22] MEDS ORDERED: Indomethacin 50 MG SUPP ONE (11:05)
[2019-11-22] MEDS ORDERED: PROPOFOL 200 MG/20 ML VIAL ONE (11:41)
[2019-11-22] MEDS ORDERED: Lidocaine 1% PF 5 ML VIAL ONE (11:41)
[2019-11-22] MEDS ORDERED: Succinylcholine Chloride 20 MG/ML 10 ml SYRINGE FS ONE (11:41)
[2019-11-22] MEDS ORDERED: Rocuronium Bromide 10 MG/ML (10ML VIAL) ONE (11:41)
[2019-11-22] MEDS ORDERED: Glycopyrrolate 0.2 MG/ML 5 ML SYRINGE ONE (11:41)
--- NOTE | 2019-11-22 13:30 | OP ---
DATE OF PROCEDURE: 11/22/2019 PROCEDURE PERFORMED: Endoscopic retrograde cholangiopancreatography (diagnostic ). INDICATIONS FOR PROCEDURE: Abnormal GI imaging, showing dilation of both common bile duct and pancreatic duct with possible lesion at the ampulla of Vater. DESCRIPTION OF PROCEDURE: After the risks and benefits of the procedure were explained to the patient including risks of bleeding, infection, perforation, reactions to anesthesia, post-ERCP pancreatitis, and/or pain, informed consent was obtained. The patient was then taken to the endoscopy suite where general anesthesia was administered followed by endotracheal tube intubation. Once the patient was intubated and sedated, he was maneuvered into the prone position in anticipation of the ERCP. Once in adequate position, the standard duodenoscope was introduced into the mouth with intubation of the esophagus, stomach, and the proximal small intestines with the findings listed below. The patient tolerated the procedure well with no immediate perioperative complications. Upon conclusion of the procedure, all equipment was removed from the patient and he was transferred to PACU in satisfactory condition. FINDINGS: EGD findings: Limited views were obtained of the esophagus, stomach , and the proximal small intestines, but of the views obtained, normal-appearing mucosa was seen in the esophagus, stomach, and duodenum. There was no overt evidence of erosions, ulcerations, mass lesions, or active/recent bleeding. ERCP findings: The ampulla of Vater was easily identified within the second portion of the duodenum. However, upon direct visualization of the ampulla, it exhibited a mild bulbous type appearance in addition to a thick viscous fluid that was seen collecting at the ampulla mouth. Manipulation of this fluid did not result in extrusion of the fluid. However, during the course of the procedure, bile was actively seen draining from the ampulla of Vater into the small intestine. Given his normal LFTs and active bile draining seen during this procedure, no intervention was subsequently taken to stent the biliary tree, but rather with these findings was pathognomonic for intrapapillary mucinous neoplasm, at which point all equipment was removed from the patient and procedure was terminated. 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 RECOMMENDATIONS: 1. Imaging thus far includes both a CT scan of the abdomen/pelvis and MRCP which yeilded good views of the pancreas and ductal system. Further radiological imaging is not indicated. 2. Would continue IV fluid and pain control per primary team as part of treatment of his pancreatitis. 3. Would advance the patient's diet to a clear liquid diet today and advance as tolerated. 4. Ultimately, the patient will need an endoscopic ultrasound for further evaluation of this lesion; however, this procedure is not performed here and the patient will need to be followed up as an outpatient for referral to a center that performs these procedures. We will continue to follow. Please call with any questions. Job ID: [id number] [id number]
[2019-11-23 05:52] LABS: ALT (SGPT) 14 U/L (8-55); AST (SGOT) 30 U/L (5-34); Alkaline Phosphatase 56 U/L (40-110); Anion Gap 13 mmol/L (10-20); BUN (Urea Nitrogen) 4 mg/dL (8.4-25.7); Bilirubin, Total 1.3 mg/dL (0.2-1.2); Calc. Creatinine Clearance 52 mL/min (70-130); Calcium 8.8 mg/dL (7.8-10.44); Carbon Dioxide 25 mmol/L (23-31); Chloride 104 mmol/L (98-107); Estimated GFR-MDRD Greater than 90; Globulin 2.6 g/dL (2.4-3.5); Glucose 82 mg/dL (80-115); Potassium 3.8 mmol/L (3.5-5.1); Protein, Total 5.6 g/dL (5.8-8.1); Sodium 138 mmol/L (136-145)
[2019-11-23] MEDS: Lactated Ringer's 1,000 ML IV SCH ×2 (05:56→15:32)
--- NOTE | 2019-11-23 07:22 | PDOC.FM ---
- Subjective Subjective: Pt doing well. Abdominal tenderness is improved. He has no complaints. He is tolerating advancement of his diet. He denies N/V. - Objective Vital Signs & Weight: Vital Signs (12 hours) Temp Pulse Resp BP BP Pulse Ox 11/23/19 06:22 70 16 98 11/23/19 04:52 98.2 F 69 20 124/64 94 L 11/22/19 23:59 97.9 F 63 18 117/53 L 96 11/22/19 23:41 60 18 97 11/22/19 20:00 97.9 F 60 20 108/63 97 11/22/19 19:48 95 Weight Weight 40.914 kg I&O: 11/22/19 11/23/19 11/24/19 06:59 06:59 06:59 Intake Total 5400 2380 Output Total 2250 650 Balance 3150 1730 Result Diagrams: 11/22/19 05:30 11/23/19 05:06 Phys Exam - Physical Examination Constitutional: NAD HEENT: PERRLA, moist MMs Neck: no JVD, full ROM Respiratory: no wheezing, clear to auscultation bilateral Cardiovascular: RRR, no significant murmur Gastrointestinal: soft, no distention, positive bowel sounds mild epigastric tenderness Neurological: non-focal, normal sensation Psychiatric: normal affect, A&O x 3 Dx/Plan (1) Dilated bile duct Code(s): K83.8 - OTHER SPECIFIED DISEASES OF BILIARY TRACT Status: Acute (2) Dilated pancreatic duct Code(s): K86.89 - OTHER SPECIFIED DISEASES OF PANCREAS Status: Acute (3) COPD (chronic obstructive pulmonary disease) Status: Acute (4) Pancreatitis Code(s): K85.90 - ACUTE PANCREATITIS WITHOUT NECROSIS OR INFECTION, UNSP Status: Acute (5) HTN (hypertension) Code(s): I10 - ESSENTIAL (PRIMARY) HYPERTENSION Status: Chronic - Plan Plan: # 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 He will need further evaluation with EUS to further stratify significance of neoplasm. He will need follow up with Dr. Stephen after discharge to arrange EUS. # HTN -Will monitor BP -Takes amlodipine/HCTZ at home - vitals stable, will continue to hold # COPD -Currently 96% on RA. Does not appear to be in exacerbation. -On Pulmicort and Advair at home. Will continue Advair. -no wheezing this am -Albuterol prn # BPH -Takes finasteride and flomax at home. -restart home meds Dispo: hopeful for discharge if he can tolerate advancement of diet Code: Full VTE ppx: Weight dosed lovenox IV Fluids: LR @ 100 mL/hr. Addendum - Attending - Attending Attestation Date/Time: 11/23/19 1320 I personally evaluated the patient and discussed the management with Dr. Mcclellan. I agree with the History, Examination, Assessment and Plan documented above with any addition or exceptions noted below. d/c if tolerates solid diet today.
[2019-11-23] MEDS ORDERED: Enoxaparin Sodium 40 MG/0.4 ML SYRINGE SC SCH (07:24)
[2019-11-23 07:36] VITALS: BP 122/66; TEMP 98.5
[2019-11-23] MEDS: Famotidine/PF 20 mg/2ml Vial SLOW IVP SCH (07:47)
[2019-11-23] MEDS ORDERED: Tamsulosin HCl 0.4 MG CAP PO SCH (09:00)
[2019-11-23] MEDS ORDERED: Finasteride 5 MG TAB PO SCH (09:00)
--- NOTE | 2019-11-23 17:19 | PRG ---
DATE OF SERVICE: 11/23/2019 SUBJECTIVE: Mr. Johnson has no abdominal pain. He is tolerating his diet well. No nausea or vomiting today. OBJECTIVE: VITAL SIGNS: Temperature 98.5, pulse 82, and blood pressure 122/66. GENERAL: He is in no acute distress. Alert and oriented x3. LUNGS: Clear to auscultation bilaterally. HEART: Regular rate and rhythm without murmur. ABDOMEN: Soft, nontender, and nondistended. Bowel sounds are present. EXTREMITIES: No lower extremity edema. LABORATORY DATA: White blood cell count 4.2, hemoglobin 10.7, and platelets 258. Bilirubin 1.3, AST 30, ALT 14, lipase 379 yesterday, alkaline phosphatase 56, and creatinine 0.79. IMPRESSION: 1. Acute pancreatitis, which is mild, and clinically, he is doing well and tolerating his diet and can go home today. 2. Gelatinous material secreted from the opening of the ampulla appears consistent with an IPMN. Review of CT scan and MRI shows no obvious neoplasm or cystic neoplasm in the pancreas or around the pancreatic duct. This will require further imaging with endoscopic ultrasound. RECOMMENDATIONS: He will follow up with Dr. Stephen as an outpatient to consider referral for endoscopic ultrasound. He is being discharged home today. Job ID: [id number]
--- NOTE | 2019-11-24 02:26 | DIS ---
DATE OF ADMISSION: 11/20/2019 DATE OF DISCHARGE: 11/23/2019 RESIDENT: Kristopher Mcclellan DO ADMITTING ATTENDING: Rosendo Resendiz MD DISCHARGE ATTENDING: Molina Levin MD CONSULTS: Gastroenterology, Ravin Stephen MD PROCEDURES PERFORMED: 1. Right upper quadrant ultrasound on 11/20/2019, revealed biliary dilatation without visible gallstones. Distal obstructive process cannot be excluded. ERCP or MRCP may be helpful to further evaluate. Right renal cyst. 2. Abdomen MRI/ MRCP on 11/21/2019 revealed dilated biliary and pancreatic ducts without evidence of cholelithiasis or choledocholithiasis. Further evaluation with endoscopic ultrasound is recommended. Bilateral renal cyst visualized. 3. 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 PRIMARY DIAGNOSES: 1. Papillary mucinous neoplasm. 2. Acute pancreatitis. SECONDARY DIAGNOSES: 1. Hypertension. 2. Chronic obstructive pulmonary disease. 3. BPH. DISCHARGE MEDICATIONS: 1. Flomax 0.4 mg p.o. daily. 2. Hydrochlorothiazide 12.5 mg p.o. q.a.m. 3. Advair Diskus one puff inhaled b.i.d. 4. Finasteride 5 mg p.o. daily. 5. Norvasc 5 mg p.o. daily. 6. Pulmicort 2 puffs inhaled b.i.d. 7. Acetaminophen 650 mg p.o. q.6 hours p.r.n. pain. 8. Ibuprofen 600 mg p.o. q.6 hours p.r.n. pain. DISCONTINUED MEDICATIONS: None. 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 The patient presented to the emergency department with significant abdominal pain and right upper quadrant pain beginning on Friday. He states he never had any pain like that prior. He had decreased appetite, nausea, or vomiting. He was initially given Zofran and morphine. He had a CT which revealed a dilated pancreatic duct and a right upper quadrant ultrasound, which revealed the same but did not show any evidence of gallstones. He has had an elevated lipase alongside this and his epigastric pain is diagnosed with acute pancreatitis, although there were no findings on the CAT scan. He was initially made n.p.o. and started on aggressive fluid resuscitation. With further evaluation, MRCP was performed which revealed the same as the previous test. At this time, GI was consulted and the patient was taken down for an ERCP. Dr. Stephen visualized intrapapillary mucinous neoplasm. He states that this is concerning in the setting of acute pancreatitis. He recommended followup with him in the clinic and he referred to get an endoscopic ultrasound performed at [facility]. On the day of discharge, the patient's acute pancreatitis had resolved and he no longer had any abdominal pain. He was tolerating the diet well. He was counseled on proper diet. Also spoke with his primary care provider on the day of discharge, Dr. Almaguer, who stated that this patient does have heavy alcohol use and tobacco abuse as well. He states that it is possible this patient does not want any intervention going forth but at this time, patient is set to follow up with Dr. Stephen to be referred for the endoscopic ultrasound to further stratify the patient's neoplasm. DISPOSITION: Stable. DISCHARGE INSTRUCTIONS: 1. Location: [facility]. 2. Diet: Heart healthy. 3. Activity: Ad alfreda. 4. Followup: Follow up with Dr. Stephen within 2 weeks. Follow up with Dr. Almaguer within 3 days. Job ID: [id number] [id number]
== END 2019-11-23 16:06 | disposition home or self-care (01) | DRG 438 ==
LOC: ERS 16:23 → T4-B 17:04
PROVIDERS: ADMIT Family Medicine; ATTEND Family Medicine
PROC: 0FJD8ZZ Inspection of Pancreatic Duct, Via Natural or Artificial Opening Endoscopic (ICD-10-PCS; principal; 2019-11-22)
DX: D13.6 Benign neoplasm of pancreas (principal); K85.90 Acute pancreatitis without necrosis or infection, unspecified; F17.210 Nicotine dependence, cigarettes, uncomplicated; I10 Essential (primary) hypertension; K21.9 Gastro-esophageal reflux disease without esophagitis; J44.9 Chronic obstructive pulmonary disease, unspecified; N40.0 Benign prostatic hyperplasia without lower urinary tract symptoms; Z88.8 Allergy status to other drugs, medicaments and biological substances; Z79.51 Long term (current) use of inhaled steroids; Z79.899 Other long term (current) drug therapy
CPT/HCPCS: 36415; 36416; 74181; 76000; 76705; 80048; 80053; 80061; 80076; 83690; 85025; 94640; 96374; 96375; J1650; J2001; J2270; J2405; J2704; J7620; Q9967; S0028

== ENCOUNTER 2023-02-06 09:17 | Outpatient (CLI) | payer OTHER, MEDICAID | END 2023-02-06 09:18 | disposition home or self-care (01) | LOC: BICULT 09:17 | PROVIDERS: ATTEND Family Medicine | DX: I70.202 Unspecified atherosclerosis of native arteries of extremities, left leg (principal); I73.9 Peripheral vascular disease, unspecified | CPT/HCPCS: 93923 ==

== ENCOUNTER 2024-06-26 18:00 | Inpatient (IN) | payer OTHER, MEDICAID ==
[2024-06-26 20:29] VITALS: BMI 15.0
[2024-06-26] MEDS ORDERED: Acetaminophen 325 MG TAB PO PRN (21:11)
[2024-06-26] MEDS ORDERED: Albuterol 2.5 MG (3 mL) NEB NEB PRN (21:35)
[2024-06-26] MEDS: Lactated Ringer's 500 ML IV SCH (21:59)
[2024-06-26] MEDS ORDERED: Ondansetron ODT 4 MG TAB PO PRN (22:06)
[2024-06-26] MEDS ORDERED: Electrolyte Replacement Protocol 1 EACH FS SCH (22:15)
[2024-06-26] MEDS ORDERED: Mometasone 200 MCG/Formoterol 5 MCG 120 PUFF INHALER INH PRN (22:28)
[2024-06-26 23:18] LABS: #Basophils Less than 0.03 10x3/uL (0.0-0.2); #Eosinophils Less than 0.03 10x3/uL (0.0-0.7); %Lymphocytes 3.2 % (21.0-51.0); %Monocytes 4.5 % (0.0-10.0); %Neutrophils 91.9 % (42.0-75.0); Hematocrit 26.7 % (42.0-52.0); Mean Corpuscular HGB CONC 33.7 g/dL (32.0-36.0); Mean Corpuscular Volume 100.8 fL (78.0-98.0); Mean Platelet Volume 9.7 fL (7.4-10.4); Platelet Count 184 10x3/uL (130-400); RBC Distribution Width 13.7 % (11.5-14.5); Red Blood Cell (RBC) Count 2.65 mill/uL (4.70-6.10)
[2024-06-26 23:25] LABS: Hemoglobin A1c 5.1 % (4.0-6.0)
[2024-06-26 23:33] LABS: Phosphorus 2.7 mg/dL (2.3-4.7)
[2024-06-26 23:35] LABS: ALT (SGPT) 21 U/L (8-55); AST (SGOT) 26 U/L (5-34); Albumin 3.5 g/dL (3.4-4.8); Alkaline Phosphatase 77 U/L (40-110); Anion Gap 14 mmol/L (10-20); BUN (Urea Nitrogen) 17 mg/dL (8.4-25.7); Bilirubin, Total 0.9 mg/dL (0.2-1.2); Calc. Creatinine Clearance 46 mL/min (70-130); Calcium 9.1 mg/dL (7.8-10.44); Carbon Dioxide 20 mmol/L (23-31); Chloride 103 mmol/L (98-107); Estimated GFR 92; Globulin 2.8 g/dL (2.4-3.5); Glucose 271 mg/dL (83-110); Iron 68 ug/dL (65-175); Iron 70 ug/dL (65-175); Iron Binding Capacity, Total 201 mcg/dL (261-462); Magnesium 1.9 mg/dL (1.6-2.6); Potassium 4.6 mmol/L (3.5-5.1); Protein, Total 6.3 g/dL (5.8-8.1); Sodium 132 mmol/L (136-145)
[2024-06-26] MEDS: cefTRIAXone\\ROCEPHIN 1 GM in Sodium Chloride 0.9% 100 ML IVPB SCH (23:42)
[2024-06-26] MEDS: Thiamine HCl 200 MG/2 ML VIAL SLOW IVP SCH (23:42)
[2024-06-27] MEDS ORDERED: Electrolyte Replacement Protocol FS PRN (08:00)
[2024-06-27] MEDS ORDERED: Albuterol 2.5 MG (3 mL) NEB NEB SCH (08:00)
[2024-06-27] MEDS ORDERED: Ipratropium/Albuterol 3 ML NEB NEB PRN (08:07)
[2024-06-27] MEDS: Ipratropium/Albuterol 3 ML NEB NEB SCH ×2 (08:14→11:05)
[2024-06-27] MEDS: Magnesium 2 GM/50 ML(in water) 2 GM in Premix 1 BAG IVPB SCH (08:27)
[2024-06-27] MEDS: Finasteride 5 MG TAB PO SCH (08:28)
[2024-06-27] MEDS: Multivit, Therapeutic 1 TAB PO SCH (08:28)
[2024-06-27] MEDS: Enoxaparin 40 MG (0.4 mL) SYRINGE SC SCH (08:28)
[2024-06-27] MEDS: Folic Acid 1 MG TAB PO SCH (08:28)
[2024-06-27] MEDS: methylPREDNISolone Sod Succ/PF 125 MG/2 ML VIAL IVP SCH (08:28)
[2024-06-27] MEDS: Pantoprazole 40 MG DR.TAB PO SCH (08:29)
[2024-06-27] MEDS: Tamsulosin HCl 0.4 MG CAP PO SCH (08:29)
[2024-06-27] MEDS: FLU (Fluad Triv) TS24-25 (65UP)/MF59C/PF 45 MCG/0.5 ML Syringe IM ONE (08:39)
[2024-06-27] MEDS: predniSONE 20 MG TAB PO SCH (08:39)
[2024-06-27] MEDS ORDERED: Heparin 5,000 UNITS/ML VIAL SC SCH (09:00)
[2024-06-27] MEDS ORDERED: Enoxaparin 30 MG (0.3 mL) SYRINGE SC SCH (09:00)
[2024-06-27] MEDS: dilTIAZem 125 MG, Admixture Fee 1 EACH in Sodium Chloride 0.9% 100 ML IVPB SCH (11:05)
[2024-06-27] MEDS: Azithromycin 250 MG TAB PO SCH (11:27)
[2024-06-27] MEDS: dilTIAZem CD 120 MG CAP PO SCH (13:47)
[2024-06-27] MEDS: Apixaban 5 MG TAB PO SCH (20:04)
[2024-06-27] MEDS ORDERED: Enoxaparin 40 MG (0.4 mL) SYRINGE SC SCH (21:00)
[2024-06-27] MEDS ORDERED: Azithromycin 250 MG TAB PO SCH (21:00)
[2024-06-28 07:08] LABS: #Basophils Less than 0.03 10x3/uL (0.0-0.2); #Eosinophils Less than 0.03 10x3/uL (0.0-0.7); %Basophils 0.1 % (0.0-1.0); %Lymphocytes 17.6 % (21.0-51.0); %Monocytes 9.6 % (0.0-10.0); %Neutrophils 71.9 % (42.0-75.0); Hematocrit 27.5 % (42.0-52.0); Hemoglobin 9.5 g/dL (14.0-18.0); Mean Corpuscular HGB CONC 34.5 g/dL (32.0-36.0); Mean Corpuscular Hemoglobin 33.8 pg (27.0-31.0); Mean Corpuscular Volume 97.9 fL (78.0-98.0); Mean Platelet Volume 9.8 fL (7.4-10.4); Platelet Count 182 10x3/uL (130-400); RBC Distribution Width 13.6 % (11.5-14.5); Red Blood Cell (RBC) Count 2.81 mill/uL (4.70-6.10)
[2024-06-28 07:17] LABS: ALT (SGPT) 22 U/L (8-55); AST (SGOT) 26 U/L (5-34); Albumin 3.6 g/dL (3.4-4.8); Alkaline Phosphatase 59 U/L (40-110); Anion Gap 10 mmol/L (10-20); BUN (Urea Nitrogen) 16 mg/dL (8.4-25.7); Calc. Creatinine Clearance 58 mL/min (70-130); Calcium 9.4 mg/dL (7.8-10.44); Carbon Dioxide 26 mmol/L (23-31); Chloride 108 mmol/L (98-107); Estimated GFR 99; Globulin 2.7 g/dL (2.4-3.5); Glucose 96 mg/dL (83-110); Potassium 3.9 mmol/L (3.5-5.1); Protein, Total 6.3 g/dL (5.8-8.1); Sodium 140 mmol/L (136-145)
[2024-06-28] MEDS: dilTIAZem CD 120 MG CAP PO SCH (08:21)
[2024-06-28] MEDS: Magnesium 2 GM/50 ML(in water) 2 GM in Premix 1 BAG IVPB SCH (08:22)
[2024-06-28] MEDS: predniSONE 20 MG TAB PO SCH (08:22)
[2024-06-28] MEDS: Azithromycin 250 MG TAB PO SCH (08:22)
[2024-06-28] MEDS ORDERED: Ipratropium/Albuterol 3 ML NEB NEB PRN (14:19)
[2024-06-28 17:23] VITALS: BMI 15.0
[2024-06-29 05:09] LABS: #Basophils Less than 0.03 10x3/uL (0.0-0.2); #Eosinophils Less than 0.03 10x3/uL (0.0-0.7); %Lymphocytes 20.5 % (21.0-51.0); %Monocytes 11.8 % (0.0-10.0); %Neutrophils 67.3 % (42.0-75.0); Hematocrit 27.2 % (42.0-52.0); Hemoglobin 9.4 g/dL (14.0-18.0); Mean Corpuscular HGB CONC 34.6 g/dL (32.0-36.0); Mean Corpuscular Hemoglobin 33.9 pg (27.0-31.0); Mean Corpuscular Volume 98.2 fL (78.0-98.0); Platelet Count 170 10x3/uL (130-400); RBC Distribution Width 13.2 % (11.5-14.5); Red Blood Cell (RBC) Count 2.77 mill/uL (4.70-6.10)
[2024-06-29 05:37] LABS: ALT (SGPT) 20 U/L (8-55); AST (SGOT) 19 U/L (5-34); Albumin 3.3 g/dL (3.4-4.8); Alkaline Phosphatase 57 U/L (40-110); Anion Gap 10 mmol/L (10-20); BUN (Urea Nitrogen) 16 mg/dL (8.4-25.7); Bilirubin, Total 0.9 mg/dL (0.2-1.2); Calc. Creatinine Clearance 63 mL/min (70-130); Calcium 8.9 mg/dL (7.8-10.44); Carbon Dioxide 25 mmol/L (23-31); Chloride 105 mmol/L (98-107); Estimated GFR 101; Globulin 2.4 g/dL (2.4-3.5); Glucose 124 mg/dL (83-110); Potassium 4.1 mmol/L (3.5-5.1); Protein, Total 5.7 g/dL (5.8-8.1); Sodium 136 mmol/L (136-145)
[2024-06-29] MEDS: Ipratropium/Albuterol 3 ML NEB NEB SCH (08:03)
[2024-06-29 11:37] VITALS: TEMP 97.7
[2024-06-29 11:39] VITALS: BP 142/63
[2024-06-29] MEDS ORDERED: Thiamine 100 MG TAB PO SCH (21:00)
== END 2024-06-29 13:57 | disposition home or self-care (01) | DRG 309 ==
LOC: OBS 18:00
PROVIDERS: ADMIT Family Medicine; ATTEND Family Medicine
DX: I48.0 Paroxysmal atrial fibrillation (principal); E87.1 Hypo-osmolality and hyponatremia; J44.1 Chronic obstructive pulmonary disease with (acute) exacerbation; R64 Cachexia; Z68.1 Body mass index [BMI] 19.9 or less, adult; I10 Essential (primary) hypertension; J44.9 Chronic obstructive pulmonary disease, unspecified; F17.210 Nicotine dependence, cigarettes, uncomplicated; D64.9 Anemia, unspecified; R73.9 Hyperglycemia, unspecified; D70.9 Neutropenia, unspecified; F10.10 Alcohol abuse, uncomplicated; Z79.899 Other long term (current) drug therapy; Z79.51 Long term (current) use of inhaled steroids; Z88.8 Allergy status to other drugs, medicaments and biological substances
CPT/HCPCS: 36415; 71045; 80048; 80053; 82607; 83036; 83540; 83550; 83735; 83880; 84100; 84484; 85025; 90653; 93005; 93010; 93306; 94640; 96365; 96372; G0378; J0696; J1650; J2919; J3411; J3475; J7512; J7611; J7620; J7626

== ENCOUNTER 2025-04-05 14:33 | Outpatient (CLI) | payer OTHER, MEDICAID ==
[2025-04-05 15:28] LABS: #Basophils Less than 0.03 10x3/uL (0.0-0.2); #Eosinophils Less than 0.03 10x3/uL (0.0-0.7); #Monocytes 0.13 10x3/uL (0.11-0.59); #Neutrophils 4.41 10x3/uL (1.40-6.50); %Basophils 0.0 % (0.0-1.0); %Eosinophils 0.0 % (0.0-10.0); %Lymphocytes 9.5 % (21.0-51.0); %Monocytes 2.6 % (0.0-10.0); %Neutrophils 87.7 % (42.0-75.0); Hematocrit 32.1 % (42.0-52.0); Hemoglobin 11.3 g/dL (14.0-18.0); Mean Corpuscular Hemoglobin 34.9 pg (27.0-31.0); Mean Corpuscular Volume 99.1 fL (78.0-98.0); Platelet Count 211 10x3/uL (130-400); Red Blood Cell (RBC) Count 3.24 mill/uL (4.70-6.10); White Blood Cell (WBC) Count 5.03 10x3/uL (4.8-10.8)
[2025-04-05 15:55] LABS: Anion Gap 15 mmol/L (10-20); BUN (Urea Nitrogen) 15 mg/dL (8.4-25.7); Calc. Creatinine Clearance 0 mL/min (70-130); Calcium 9.7 mg/dL (7.8-10.44); Carbon Dioxide 22 mmol/L (23-31); Chloride 97 mmol/L (98-107); Glucose 124 mg/dL (83-110); Potassium 3.8 mmol/L (3.5-5.1); Sodium 130 mmol/L (136-145)
== END 2025-04-05 14:34 | disposition home or self-care (01) ==
LOC: LABBT 14:33
PROVIDERS: ATTEND Thoracic Surgery (Cardiothoracic Vascular Surgery)
DX: Z01.812 Encounter for preprocedural laboratory examination (principal); I73.9 Peripheral vascular disease, unspecified
CPT/HCPCS: 80048; 85025

== ENCOUNTER 2025-04-27 08:24 | Outpatient (CLI) | payer OTHER, MEDICAID ==
[2025-04-27 09:14] LABS: #Basophils Less than 0.03 10x3/uL (0.0-0.2); #Eosinophils Less than 0.03 10x3/uL (0.0-0.7); #Monocytes 0.63 10x3/uL (0.11-0.59); #Neutrophils 2.49 10x3/uL (1.40-6.50); %Basophils 0.2 % (0.0-1.0); %Eosinophils 0.4 % (0.0-10.0); %Lymphocytes 36.2 % (21.0-51.0); %Monocytes 12.7 % (0.0-10.0); %Neutrophils 50.3 % (42.0-75.0); Hematocrit 30.7 % (42.0-52.0); Hemoglobin 10.3 g/dL (14.0-18.0); Mean Corpuscular Hemoglobin 34.4 pg (27.0-31.0); Mean Corpuscular Volume 102.7 fL (78.0-98.0); Platelet Count 277 10x3/uL (130-400); Red Blood Cell (RBC) Count 2.99 mill/uL (4.70-6.10); White Blood Cell (WBC) Count 4.95 10x3/uL (4.8-10.8)
[2025-04-27 09:23] LABS: Anion Gap 15 mmol/L (10-20); BUN (Urea Nitrogen) 6 mg/dL (8.4-25.7); Calc. Creatinine Clearance 0 mL/min (70-130); Calcium 9.3 mg/dL (7.8-10.44); Carbon Dioxide 26 mmol/L (23-31); Chloride 105 mmol/L (98-107); Glucose 108 mg/dL (83-110); Potassium 3.6 mmol/L (3.5-5.1); Sodium 142 mmol/L (136-145)
== END 2025-04-27 08:25 | disposition home or self-care (01) ==
LOC: LABBT 08:24
PROVIDERS: ATTEND Thoracic Surgery (Cardiothoracic Vascular Surgery)
DX: Z01.812 Encounter for preprocedural laboratory examination (principal); I73.9 Peripheral vascular disease, unspecified
CPT/HCPCS: 80048; 85025

== ENCOUNTER 2025-04-27 09:00 | Inpatient (IN) | payer OTHER, MEDICAID ==
[2025-04-27 08:41] VITALS: BMI 14.0
[2025-04-28] MEDS ORDERED: Heparin 5,000 UNITS/ML VIAL ONE (06:38)
[2025-04-28] MEDS ORDERED: SUGAMMADEX SODIUM 200 MG/2 ML VIAL ONE (07:00)
[2025-04-28] MEDS ORDERED: fentaNYL PF 100 MCG/2 ML SYRINGE ONE (07:00)
[2025-04-28] MEDS ORDERED: Ondansetron PF 4 MG/2 ML Vial ONE (07:01)
[2025-04-28] MEDS ORDERED: Rocuronium Bromide 10 MG/ML (10ML VIAL) ONE (07:01)
[2025-04-28] MEDS ORDERED: Lidocaine 2% PF 100 mg/5 ml Syringe ONE (07:01)
[2025-04-28] MEDS ORDERED: CEFAZOLIN 1 GM VIAL ONE (07:01)
[2025-04-28] MEDS ORDERED: Heparin 10,000 UNITS/ 10 ML VIAL ONE (07:01)
[2025-04-28] MEDS ORDERED: PHENYLEPHRINE-NS 100 MCG/ML 10 ML SYRINGE ONE (07:01)
[2025-04-28] MEDS ORDERED: PROPOFOL 200 MG/20 ML VIAL ONE (07:42)
[2025-04-28] MEDS ORDERED: Albuterol HFA (OR) 200 PUFF INH ONE ×2 (07:42→08:38)
[2025-04-28] MEDS ORDERED: Lidocaine 2% 6 ML (Jelly) SYR ONE (07:48)
[2025-04-28] MEDS ORDERED: hydrALAZINE 20 MG/ML VIAL ONE (09:45)
[2025-04-28] MEDS ORDERED: Acetaminophen 325 MG TAB PO PRN (10:06)
[2025-04-28] MEDS ORDERED: Ondansetron PF 4 MG/2 ML Vial IVP PRN (10:06)
[2025-04-28] MEDS ORDERED: hydrALAZINE 20 MG/ML VIAL SLOW IVP PRN (10:06)
[2025-04-28] MEDS ORDERED: CEFAZOLIN 2 GM VIAL ONE (14:49)
[2025-04-28] MEDS: D5 1/2 NS w/20 mEq KCL 1,000 ML IV SCH (16:40)
[2025-04-28] MEDS: Mometasone 200 MCG/Formoterol 5 MCG 120 PUFF INHALER INH SCH (19:14)
[2025-04-29] MEDS: Aspirin 81 mg Enteric Coated Tablet PO SCH (08:57)
[2025-04-29 11:39] VITALS: TEMP 97.6
[2025-04-29 12:04] VITALS: BP 175/63
[2025-05-01] MEDS ORDERED: PNEUMOC 20-VAL CONJ-DIP CRM/PF 0.5 ML SYRINGE IM ONE (09:00)
[2025-05-01] MEDS ORDERED: FLU (Fluad Triv) 25-26 (65UP)PF 45 MCG/0.5 ML Syringe IM ONE (09:00)
== END 2025-04-29 12:26 | disposition home or self-care (01) | DRG 254 ==
LOC: SURG A 04-28 05:49 → PCU 04-28 16:35
PROVIDERS: ADMIT Thoracic Surgery (Cardiothoracic Vascular Surgery); ATTEND Thoracic Surgery (Cardiothoracic Vascular Surgery)
PROC: 047L0ZZ Dilation of Left Femoral Artery, Open Approach (ICD-10-PCS; principal; 2025-04-28)
PROC: 04CL0ZZ Extirpation of Matter from Left Femoral Artery, Open Approach (ICD-10-PCS; 2025-04-28)
PROC: B41G1ZZ Fluoroscopy of Left Lower Extremity Arteries using Low Osmolar Contrast (ICD-10-PCS; 2025-04-28)
PROC: 3E03329 Introduction of Other Anti-infective into Peripheral Vein, Percutaneous Approach (ICD-10-PCS; 2025-04-28)
DX: I73.9 Peripheral vascular disease, unspecified (principal); Z79.899 Other long term (current) drug therapy; Z79.82 Long term (current) use of aspirin; I10 Essential (primary) hypertension; J44.9 Chronic obstructive pulmonary disease, unspecified; N40.0 Benign prostatic hyperplasia without lower urinary tract symptoms; Z72.0 Tobacco use; Z98.890 Other specified postprocedural states; Z85.07 Personal history of malignant neoplasm of pancreas; Z88.8 Allergy status to other drugs, medicaments and biological substances
CPT/HCPCS: 94664; C1725; C1768; C1769; C1887; C1894; J0169; J0360; J0665; J0690; J1100; J1644; J2003; J2405; J2704; J2720; J3480